=== PATIENT | male | born 1955 | race Caucasian/White ===

== ENCOUNTER → 2017-03-18 | Outpatient (CLI) | payer OTHER ==
--- NOTE | 2017-03-19 11:17 | ECHOF ---
Referral Reason:M70.1 MYAIGIA MEASUREMENTS -------- HEIGHT: 177.8 cm WEIGHT: 89.4 kg BP: 138/93 RVIDd: 2.8 cm (< 3.3) IVSd: 1.0 cm (0.6 - 1.1) LVIDd: 5.0 cm (3.9 - 5.3) LVPWd: 1.0 cm (0.6 - 1.1) IVSs: 1.5 cm LVIDs: 3.3 cm LVPWs: 1.2 cm LAESV Index (A-L): 16.45 ml/m Ao Diam: 3.6 cm (2.0 - 3.7) AV Cusp: 2.4 cm (1.5 - 2.6) LA Diam: 3.4 cm (2.7 - 3.8) MV EXCURSION: 15.271 mm (> 18.000) MV EF SLOPE: 59 mm/s (70 - 150) EPSS: 0.9 cm MV E Cesar: 0.62 m/s MV DecT: 282 ms MV A Cesar: 0.92 m/s MV E/A Ratio: 0.67 RAP: 5.00 mmHg RVSP: 10.41 mmHg FINDINGS -------- Sinus rhythm. This was a technically adequate study. The left ventricular size is normal. Left ventricular wall thickness is normal. Overall left vent ricular systolic function is normal with, an EF between 55 - 60 %. The right ventricle is normal in size and function. Normal LA size by volume 22+/-6 ml/m2. The right atrium is normal in size. Aortic valve is trileaflet and is mildly thickened. There is no evidence of aortic regurgitation. There is no evidence of aortic stenosis. The mitral valve leaflets are mildly thickened. There is trace to mild mitral regurgitation. Trace tricuspid regurgitation present. Right ventricular systolic pressure is normal at < 35 mmHg. There is no evidence of pulmonary hypertension. The pulmonic valve is normal. The aortic root size is normal. Normal inferior vena cava with normal inspiratory collapse consistent with estimated right atrial pre ssure of 5 mmHg. The pericardium is normal. There is no pericardial effusion. CONCLUSIONS -------- 1. Sinus rhythm. 2. This was a technically adequate study. 3. The left ventricular size is normal. 4. Left ventricular wall thickness is normal. 5. Overall left ventricular systolic function is normal with, an EF between 55 - 60 %. 6. Normal LA size by volume 22+/-6 ml/m2. 7. Aortic valve is trileaflet and is mildly thickened. 8. The mitral valve leaflets are mildly thickened. 9. There is trace to mild mitral regurgitation. 10. Trace tricuspid regurgitation present. 11. Right ventricular systolic pressure is normal at < 35 mmHg. 12. There is no evidence of pulmonary hypertension. 13. The aortic root size is normal. 14. There is no pericardial effusion. AGRICULTURAL SYSTEMS SPECIALIST: Autumn Larose RDCS
== END | disposition home or self-care (01) ==
LOC: RADECHMAIN 16:00
PROVIDERS: ATTEND Family Medicine
DX: I08.3 Combined rheumatic disorders of mitral, aortic and tricuspid valves (principal)
CPT/HCPCS: 93306

== ENCOUNTER → 2018-06-12 | Outpatient (CLI) | payer MEDICARE, OTHER ==
--- NOTE | 2018-06-12 10:20 | US ---
EXAMINATION TYPE: US carotid duplex BILAT DATE OF EXAM: 06/12/2018 COMPARISON: NONE CLINICAL HISTORY: I25.10 CORONARY ARTERY DISEASE,R09.89 CAROTID BRUIT. EXAM MEASUREMENTS: RIGHT: Peak Systolic Velocity (PSV) cm/sec ----- Right CCA: 105.6 ----- Right ICA: 93.0 ----- Right ECA: 125.8 ICA/CCA ratio: 0.9 RIGHT: End Diastole cm/sec ----- Right CCA: 37.4 ----- Right ICA: 41.2 ----- Right ECA: 29.8 LEFT: Peak Systolic Velocity (PSV) cm/sec ----- Left CCA: 131.9 ----- Left ICA: 100.5 ----- Left ECA: 143.2 ICA/CCA ratio: 0.8 LEFT: End Diastole cm/sec ----- Left CCA: 38.2 ----- Left ICA: 37.1 ----- Left ECA: 33.3 VERTEBRALS (direction of flow): Right Vertebral: Antegrade Left Vertebral: Antegrade Rhythm: IMPRESSION: Scattered plaque without evidence for hemodynamically significant stenosis. Criteria for Assigning % of Stenosis / Diameter reduction (Estimation based on the indirect measurements of the internal carotid artery velocities (ICA PSV). 1. Normal (no stenosis)=ICA PSV < 125 cm/s: ratio < 2.0: ICA EDV<40 cm/s. 2. Less than 50% stenosis=ICA PSV < 125 cm/s: ratio < 2.0: ICA EDV<40 cm/s. 3. 50 to 69% stenosis=ICA PSV of 125 to 230 cm/s: ration 2.0 ? 4.0: ICA EDV 40-100 cm/s. 4. Greater than 70% stenosis to near occlusion= ICA PSV > 230 cm/s: ratio > 4.0: ICA EDV > 100 cm/s. 5. Near occlusion= ICA PSV velocities may be low or undetectable: variable ratio and ICA EDV. 6. Total occlusion=unable to detect flow.
== END | disposition home or self-care (01) ==
LOC: RADUSWWP 09:38
PROVIDERS: ATTEND Family Medicine
DX: I65.23 Occlusion and stenosis of bilateral carotid arteries (principal); I25.10 Atherosclerotic heart disease of native coronary artery without angina pectoris
CPT/HCPCS: 93880

== ENCOUNTER 2018-12-22 18:08 | Inpatient (IN) | payer MEDICARE, OTHER ==
[2018-12-22] MEDS ORDERED: ASPIRIN 81 MG PO STA (18:49)
[2018-12-22] MEDS ORDERED: NITROGLYCERIN OINT 1 INCH/GM PACKET TOPICAL STA (18:49)
[2018-12-22] MEDS ORDERED: SODIUM CHLORIDE 0.9% 500 ML 500 ML IV STA (18:49)
[2018-12-22] MEDS ORDERED: ACETAMINOPHEN TAB 500 MG TAB PO STA (18:52)
--- NOTE | 2018-12-22 18:58 | ED ---
General Adult HPI - General Chief complaint: Chest Pain Stated complaint: chest pain Time Seen by Provider: 12/22/18 18:10 Source: patient, RN notes reviewed Mode of arrival: ambulatory Limitations: no limitations - History of Present Illness Initial comments: This is a 63-year-old male presents emergency Department complaining that since this morning said chest pain is gotten progressively worse. Patient states this afternoon it started radiating down his left arm and escalated to coming to the emergency department. Patient states the pain feels typical of the chest pain he had when he had a heart attack. Patient states he is also a diabetic. Patient states she's been fighting a sore throat for 3 days and he was recently put on Augmentin even though strep test was negative. Patient states today he felt warm he did have a temperature of 100.5. Patient denies any shortness of breath or any diaphoretic episodes. Patient denies any nausea vomiting diarrhea per patient denies any abdominal pain. Patient denies lightheadedness dizziness or near syncopal episode. Patient denies any swelling to the legs or tenderness of the calves. Patient states he has had a cough over the last day. - Related Data Home Medications Medication Instructions Recorded Confirmed Amoxic-Pot Clav 875-125Mg 1 tab PO BID 12/22/18 12/22/18 [Augmentin 875-125] Aspirin EC [Ecotrin Low Dose] 81 mg PO HS 12/22/18 12/22/18 Atorvastatin [Lipitor] 20 mg PO HS 12/22/18 12/22/18 Ibuprofen [Motrin Ib] 400 mg PO Q6H PRN 12/22/18 12/22/18 Insulin Glargine,Hum.rec.anlog 38 unit SQ HS 12/22/18 12/22/18 [Lantus Solostar] Insulin Glulisine [Apidra Solostar] See Protocol SQ AC-TID 12/22/18 12/22/18 Lisinopril [Prinivil] 10 mg PO HS 12/22/18 12/22/18 Allergies Allergy/AdvReac Type Severity Reaction Status Date / Time dulaglutide [From [facility]] AdvReac Abdominal Verified 12/22/18 18:53 Pain metformin AdvReac Diarrhea Verified 12/22/18 18:53 Review of Systems ROS Statement: Those systems with pertinent positive or pertinent negative responses have been documented in the HPI. ROS Other: All systems not noted in ROS Statement are negative. Past Medical History Past Medical History: Diabetes Mellitus, Myocardial Infarction ([place]) Additional Past Medical History / Comment(s): mi x2 History of Any Multi-Drug Resistant Organisms: None Reported Past Surgical History: Appendectomy, Heart Catheterization With Stent, Tonsillectomy Past Psychological History: No Psychological Hx Reported Smoking Status: Never smoker Past Alcohol Use History: None Reported Past Drug Use History: None Reported General Exam - General Exam Comments Initial Comments: GENERAL: Patient is well-developed and well-nourished. Patient is nontoxic and well- hydrated and is in mild distress. ENT: Neck is soft and supple. No significant lymphadenopathy is noted. Oropharynx is clear. Moist mucous membranes. Neck has full range of motion without eliciting any pain. EYES: The sclera were anicteric and conjunctiva were pink and moist. Extraocular movements were intact and pupils were equal round and reactive to light. Eyelids were unremarkable. PULMONARY: Unlabored respirations. Good breath sounds bilaterally. No audible rales rhonchi or wheezing was noted. CARDIOVASCULAR: There is a regular rate and rhythm without any murmurs gallops or rubs. ABDOMEN: Soft and nontender with normal bowel sounds. No palpable organomegaly was noted. There is no palpable pulsatile mass. SKIN: Skin is clear with no lesions or rashes and otherwise unremarkable. NEUROLOGIC: Patient is alert and oriented x3. Cranial nerves II through XII are grossly intact. Motor and sensory are also intact. Normal speech, volume and content. Symmetrical smile. MUSCULOSKELETAL: Normal extremities with adequate strength and full range of motion. No lower extremity swelling or edema. No calf tenderness. LYMPHATICS: No significant lymphadenopathy is noted PSYCHIATRIC: Normal psychiatric evaluation. Limitations: no limitations Course Vital Signs 12/22/18 18:14 Temperature 100.5 F H Pulse Rate 117 H Respiratory 18 Rate Blood Pressure 126/78 O2 Sat by Pulse 96 Oximetry Medical Decision Making - Medical Decision Making EKG shows sinus tachycardia at 107 bpm IN interval 172 QRS 96 QT interval 320 QTC is 427. Patient's EKG shows no ST segment elevation or depression or T wave abnormalities are noted. Chest x-ray shows an infiltrate in the left base and that correlates clinically with his chest exam. I started the patient on Rocephin and Zithromax. I brought the patient to the chest pain and we'll be repeating troponins and consult to cardiology but in the meantime I will continue treating the pneumonia. - Lab Data Result diagrams: 12/22/18 19:04 12/22/18 19:04 Lab Results 12/22/18 12/22/18 12/22/18 Range/Units 19:04 19:04 19:04 WBC 14.1 H (3.8-10.6) k/uL RBC 6.00 H (4.30-5.90) m/uL Hgb 17.3 (13.0-17.5) gm/dL Hct 50.2 (39.0-53.0) % MCV 83.7 (80.0-100.0) fL MCH 28.9 (25.0-35.0) pg MCHC 34.5 (31.0-37.0) g/dL RDW 13.5 (11.5-15.5) % Plt Count 233 (150-450) k/uL Neutrophils % 80 % Lymphocytes % 11 % Monocytes % 6 % Eosinophils % 2 % Basophils % 0 % Neutrophils # 11.2 H (1.3-7.7) k/uL Lymphocytes # 1.5 (1.0-4.8) k/uL Monocytes # 0.8 (0-1.0) k/uL Eosinophils # 0.3 (0-0.7) k/uL Basophils # 0.1 (0-0.2) k/uL PT 9.4 (9.0-12.0) sec INR 0.8 (<1.2) APTT 23.6 (22.0-30.0) sec Sodium 136 L (137-145) mmol/L Potassium 4.9 (3.5-5.1) mmol/L Chloride 100 (98-107) mmol/L Carbon Dioxide 25 (22-30) mmol/L Anion Gap 11 mmol/L BUN 20 (9-20) mg/dL Creatinine 0.82 (0.66-1.25) mg/dL Est GFR (CKD-EPI)AfAm >90 (>60 ml/min/1.73 sqM) Est GFR (CKD-EPI)NonAf >90 (>60 ml/min/1.73 sqM) Glucose 390 H (74-99) mg/dL Plasma Lactic Acid Aris (0.7-2.0) mmol/L Calcium 9.4 (8.4-10.2) mg/dL Magnesium 2.0 (1.6-2.3) mg/dL Total Bilirubin 0.8 (0.2-1.3) mg/dL AST 23 (17-59) U/L ALT 33 (21-72) U/L Alkaline Phosphatase 122 (38-126) U/L Troponin I (0.000-0.034) ng/mL Total Protein 7.3 (6.3-8.2) g/dL Albumin 4.3 (3.5-5.0) g/dL Amylase 73 (30-110) U/L Lipase 111 (23-300) U/L Heterophile Antibody (Negative) Group A Strep Rapid (Negative) 12/22/18 12/22/18 12/22/18 Range/Units 19:04 19:04 19:04 WBC (3.8-10.6) k/uL RBC (4.30-5.90) m/uL Hgb (13.0-17.5) gm/dL Hct (39.0-53.0) % MCV (80.0-100.0) fL MCH (25.0-35.0) pg MCHC (31.0-37.0) g/dL RDW (11.5-15.5) % Plt Count (150-450) k/uL Neutrophils % % Lymphocytes % % Monocytes % % Eosinophils % % Basophils % % Neutrophils # (1.3-7.7) k/uL Lymphocytes # (1.0-4.8) k/uL Monocytes # (0-1.0) k/uL Eosinophils # (0-0.7) k/uL Basophils # (0-0.2) k/uL PT (9.0-12.0) sec INR (<1.2) APTT (22.0-30.0) sec Sodium (137-145) mmol/L Potassium (3.5-5.1) mmol/L Chloride (98-107) mmol/L Carbon Dioxide (22-30) mmol/L Anion Gap mmol/L BUN (9-20) mg/dL Creatinine (0.66-1.25) mg/dL Est GFR (CKD-EPI)AfAm (>60 ml/min/1.73 sqM) Est GFR (CKD-EPI)NonAf (>60 ml/min/1.73 sqM) Glucose (74-99) mg/dL Plasma Lactic Acid Aris 1.2 (0.7-2.0) mmol/L Calcium (8.4-10.2) mg/dL Magnesium (1.6-2.3) mg/dL Total Bilirubin (0.2-1.3) mg/dL AST (17-59) U/L ALT (21-72) U/L Alkaline Phosphatase (38-126) U/L Troponin I <0.012 (0.000-0.034) ng/mL Total Protein (6.3-8.2) g/dL Albumin (3.5-5.0) g/dL Amylase (30-110) U/L Lipase (23-300) U/L Heterophile Antibody Negative (Negative) Group A Strep Rapid (Negative) 12/22/18 Range/Units 19:28 WBC (3.8-10.6) k/uL RBC (4.30-5.90) m/uL Hgb (13.0-17.5) gm/dL Hct (39.0-53.0) % MCV (80.0-100.0) fL MCH (25.0-35.0) pg MCHC (31.0-37.0) g/dL RDW (11.5-15.5) % Plt Count (150-450) k/uL Neutrophils % % Lymphocytes % % Monocytes % % Eosinophils % % Basophils % % Neutrophils # (1.3-7.7) k/uL Lymphocytes # (1.0-4.8) k/uL Monocytes # (0-1.0) k/uL Eosinophils # (0-0.7) k/uL Basophils # (0-0.2) k/uL PT (9.0-12.0) sec INR (<1.2) APTT (22.0-30.0) sec Sodium (137-145) mmol/L Potassium (3.5-5.1) mmol/L Chloride (98-107) mmol/L Carbon Dioxide (22-30) mmol/L Anion Gap mmol/L BUN (9-20) mg/dL Creatinine (0.66-1.25) mg/dL Est GFR (CKD-EPI)AfAm (>60 ml/min/1.73 sqM) Est GFR (CKD-EPI)NonAf (>60 ml/min/1.73 sqM) Glucose (74-99) mg/dL Plasma Lactic Acid Aris (0.7-2.0) mmol/L Calcium (8.4-10.2) mg/dL Magnesium (1.6-2.3) mg/dL Total Bilirubin (0.2-1.3) mg/dL AST (17-59) U/L ALT (21-72) U/L Alkaline Phosphatase (38-126) U/L Troponin I (0.000-0.034) ng/mL Total Protein (6.3-8.2) g/dL Albumin (3.5-5.0) g/dL Amylase (30-110) U/L Lipase (23-300) U/L Heterophile Antibody (Negative) Group A Strep Rapid Negative (Negative) Disposition Clinical Impression: Chest pain, Pneumonia Disposition: ADMITTED IP TO THIS HOSP Referrals: Luma Jimenez MD [Primary Care Provider] - 1-2 days Time of Disposition: 20:10
[2018-12-22 19:23] LABS: Basophils # (A) 0.1 k/uL (0-0.2); Basophils % (A) 0 %; Eosinophils # (A) 0.3 k/uL (0-0.7); Eosinophils % (A) 2 %; HCT 50.2 % (39.0-53.0); HGB 17.3 gm/dL (13.0-17.5); Lymphocytes # (A) 1.5 k/uL (1.0-4.8); Lymphocytes % (A) 11 %; MCH 28.9 pg (25.0-35.0); MCHC 34.5 g/dL (31.0-37.0); MCV 83.7 fL (80.0-100.0); Mean Platelet Volume 6.8; Monocytes # (A) 0.8 k/uL (0-1.0); Monocytes % (A) 6 %; Neutrophils # (A) 11.2 k/uL (1.3-7.7); Neutrophils % (A) 80 %; Platelet Count 233 k/uL (150-450); RDW 13.5 % (11.5-15.5); WBC 14.1 k/uL (3.8-10.6)
[2018-12-22 19:30] LABS: ALT 33 U/L (21-72); AST 23 U/L (17-59); African American GFR (CKD) >90 (>60 ml/min/1.73 sqM); Albumin 4.3 g/dL (3.5-5.0); Alkaline Phosphatase 122 U/L (38-126); Amylase 73 U/L (30-110); Anion Gap 11 mmol/L; Blood Urea Nitrogen 20 mg/dL (9-20); Calcium 9.4 mg/dL (8.4-10.2); Carbon Dioxide 25 mmol/L (22-30); Chloride 100 mmol/L (98-107); Glucose 390 mg/dL (74-99); Potassium 4.9 mmol/L (3.5-5.1); Sodium 136 mmol/L (137-145); Total Bilirubin 0.8 mg/dL (0.2-1.3); Total Protein 7.3 g/dL (6.3-8.2)
--- NOTE | 2018-12-22 19:40 | XR ---
EXAMINATION TYPE: XR chest 2V DATE OF EXAM: 12/22/2018 COMPARISON: 06/01/2013 HISTORY: Chest pain TECHNIQUE: Frontal and lateral views of the chest are obtained. FINDINGS: There is some linear density at the left lung base. Heart size is normal. There are no hil ar masses. There is no pleural effusion. IMPRESSION: Mild atelectasis at the left lung base is new compared to old exam. Normal heart.
[2018-12-22 19:42] LABS: INR 0.8 (<1.2); Partial Thromboplastin Time 23.6 sec (22.0-30.0); Prothrombin Time 9.4 sec (9.0-12.0)
[2018-12-22] MEDS ORDERED: cefTRIAXone IN SWFI 1,000 MG/10 ML SYRINGE IVP STA (20:09)
[2018-12-22] MEDS ORDERED: AZITHROMYCIN 500 MG in SODIUM CHLORIDE 0.9% 250 ML IVPB STA (20:09)
[2018-12-22] MEDS ORDERED: NITROGLYCERIN SL TABS 0.4 MG TAB SUBLINGUAL PRN (20:10)
[2018-12-22 21:13] LABS: Glucose,Whole Blood 266 mg/dL (75-99)
[2018-12-22] MEDS: INSULIN ASPART (NovoLOG) 100 UNIT/ML VIAL SQ SCH (21:26)
--- NOTE | 2018-12-22 23:07 | P.HPIM ---
History of Present Illness H&P Date: 12/22/18 Patient is a 58-year-old male with a PMH of coronary artery disease with history of [place] status post 2 stents, diabetes mellitus, and hypertension presented to the ED with complaints of chest discomfort. The patient reports that his chest pain started suddenly earlier today while he was at rest, epigastric, with radiation to the left arm. The patient states that the pain is similar to his prior MIs. The pain was initially at time of 10, and improved to 4 out of 10 at time of interview. He denied nausea, vomiting, diaphoresis, palpitations, or dizziness. Patient notes that over the past 3-4 days, he has had a sore throat, symptoms similar to his grandchildren a few days prior. He has been taking prescribed course of Augmentin. He endorsed some subjective chills earlier today. He denied recent travel or leg pain. The patient underwent an extensive evaluation in the emergency room with WBC count of 14.1, platelets 233, sodium 136, glucose 390, troponin less than 0.012, rapid strep test negative, heterophile antibody negative, and lactic acid 1.2. Upon presentation, the patient had a temperature of 100.5, and was tachycardic to 115 with BP 126/78 and saturating 96% on room air. The patient's chest x-ray revealed possible left lower lobe pneumonia versus atelectasis. EKG revealed sinus a cardiac 107 bpm with incomplete right bundle ranjit block and left axis deviation. The patient is being admitted to the medicine service for further management for chest pain and pneumonia. Review of Systems Pertinent positives and negatives as discussed in HPI, a complete review of systems was performed and all other systems are negative. Past Medical History Past Medical History: Diabetes Mellitus, Myocardial Infarction ([place]) Additional Past Medical History / Comment(s): mi x2 History of Any Multi-Drug Resistant Organisms: None Reported Past Surgical History: Appendectomy, Heart Catheterization With Stent, Tonsillectomy Past Psychological History: No Psychological Hx Reported Smoking Status: Never smoker Past Alcohol Use History: None Reported Past Drug Use History: None Reported Medications and Allergies Home Medications Medication Instructions Recorded Confirmed Type Amoxic-Pot Clav 875-125Mg 1 tab PO BID 12/22/18 12/22/18 History [Augmentin 875-125] Aspirin EC [Ecotrin Low Dose] 81 mg PO HS 12/22/18 12/22/18 History Atorvastatin [Lipitor] 20 mg PO HS 12/22/18 12/22/18 History Ibuprofen [Motrin Ib] 400 mg PO Q6H PRN 12/22/18 12/22/18 History Insulin Glargine,Hum.rec.anlog 38 unit SQ HS 12/22/18 12/22/18 History [Lantus Solostar] Insulin Glulisine [Apidra Solostar] See Protocol SQ AC-TID 12/22/18 12/22/18 History Lisinopril [Prinivil] 10 mg PO HS 12/22/18 12/22/18 History Allergies Allergy/AdvReac Type Severity Reaction Status Date / Time dulaglutide [From [facility]] AdvReac Abdominal Verified 12/22/18 18:53 Pain metformin AdvReac Diarrhea Verified 12/22/18 18:53 Physical Exam Vitals: Vital Signs Temp Pulse Resp BP Pulse Ox 12/22/18 20:00 104 H 9 L 132/92 92 L 12/22/18 19:30 136/87 90 L 12/22/18 19:00 109 H 16 133/84 92 L 12/22/18 18:14 100.5 F H 117 H 18 126/78 96 Intake and Output 12/22/18 12/22/18 12/22/18 06:59 14:59 22:59 Other: # Voids 1 Weight 93.894 kg General: non toxic, no distress, appears at stated age, overweight Derm: no unusual rashes/lesions no unusual ecchymoses, warm, dry Head: atraumatic, normocephalic, symmetric Eyes: EOMI, no lid lag, anicteric sclera, pupils equal round reactive to light ENT: Nose and ears atraumatic, no thrush, no pharyngeal erythema, no tonsillar exudates noted Neck: No thyromegaly, cervical lymphadenopathy noted, trachea midline, supple Mouth: no lip lesion, mucus membranes moist Cardiovascular: S1S2 reg, no murmur, positive posterior tibial pulse bilateral, no edema, capillary refill less than 2 seconds Lungs: CTA bilateral, no rhonchi, no rales , no accessory muscle use Abdominal: soft, nontender to palpation, no guarding, no appreciable organomegaly, normal bowel sounds Ext: no gross muscle atrophy, muscle strength 5 out of 5 in all 4 extremities grossly, no contractures, Neuro: CN II-XI grossly intact, light touch intact all 4 extremities, finger to nose within normal limits, Psych: Alert, oriented, appropriate affect Results CBC & Chem 7: 12/22/18 19:04 12/22/18 19:04 Labs: Abnormal Lab Results - Last 24 Hours (Table) 12/22/18 12/22/18 12/22/18 Range/Units 19:04 19:04 21:12 WBC 14.1 H (3.8-10.6) k/uL RBC 6.00 H (4.30-5.90) m/uL Neutrophils # 11.2 H (1.3-7.7) k/uL Sodium 136 L (137-145) mmol/L Glucose 390 H (74-99) mg/dL POC Glucose (mg/dL) 266 H (75-99) mg/dL Microbiology - Last 24 Hours (Table) 12/22/18 19:28 Group A Strep Throat Culture - Preliminary Throat Assessment and Plan Plan: Chest pain, r/o ACS -Cardiology consult -Cardiac monitoring -Trend troponin -Continue with aspirin -Nitro when necessary Sepsis secondary to community acquired pneumonia -Continue with azithromycin, ceftriaxone -Continue with IV fluids Diabetes mellitus with hyperglycemia -Blood glucose monitoring -Continue with Levemir 35 units daily at bedtime (Takes Lantus 38 U qhs at home) and Lispro insulin sliding scale Hypertension -Hold antihypertensives in setting of sepsis -Resume as warranted DVT prophylaxis -Heparin The patient is admitted with an anticipated greater than 2 midnight stay for evaluation of sepsis, chest pain. CODE STATUS:Full Code Discussed with: Patient Anticipated discharge date: 12/25/[address]: Home A total of 40 minutes was spent on the care of this complex patient more than 50% of the time was spent in counseling and care coordination.
[2018-12-23] MEDS ORDERED: NITROGLYCERIN OINT 1 INCH/GM PACKET TOPICAL SCH
[2018-12-23] MEDS ORDERED: HEPARIN SODIUM,PORCINE 5,000 UNIT/ML 1 ML VIAL SQ SCH
[2018-12-23 00:40] LABS: Glucose,Whole Blood 249 mg/dL (75-99)
[2018-12-23] MEDS: INSULIN DETEMIR (LEVEMIR) 100 UNIT/ML SYR SQ SCH ×2 (00:42→21:26)
[2018-12-23 06:38] LABS: HCT 44.3 % (39.0-53.0); HGB 15.3 gm/dL (13.0-17.5); MCH 28.8 pg (25.0-35.0); MCHC 34.4 g/dL (31.0-37.0); MCV 83.6 fL (80.0-100.0); Mean Platelet Volume 7.2; Platelet Count 218 k/uL (150-450); RBC 5.31 m/uL (4.30-5.90); RDW 15.4 % (11.5-15.5)
[2018-12-23 06:47] LABS: Glucose,Whole Blood 221 mg/dL (75-99)
[2018-12-23] MEDS: INSULIN ASPART (NovoLOG) 100 UNIT/ML VIAL SQ SCH ×7 (06:49→21:26)
[2018-12-23 06:59] LABS: Cholesterol 158 mg/dL (<200); HDL Cholesterol 34 mg/dL (40-60); LDL Cholesterol,Calculated 89 mg/dL (0-99); Triglycerides 175 mg/dL (<150)
--- NOTE | 2018-12-23 08:02 | P.CRDCN ---
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 Patient does not smoke. He presents to the hospital with symptoms of severe sore throat with associated fever and chills, productive cough. He states that this is been going on for the past 3 days, prior to that his grandchildren were both sick with upper respiratory infections. He presents to the hospital with symptoms of chest tightness and burning in his chest, which she states reminds him somewhat of what he had with his myocardial infarction at the time of his stent placements. Chest x-ray shows mild atelectasis at the left lung base as compared with prior exam. EKG shows a sinus tachycardia with an incomplete right bundle branch block pattern, nonspecific ST-T wave changes. Blood pressure on arrival here 126/78 with a heart rate of 118, 96% on room air, temperature at that time 100.5. Blood pressure this morning 120/70 with a heart rate of 103, temperature 98.7, 92% on room air. White blood cell count 14.1, hemoglobin 17.3, platelet count 233. Sodium 136, potassium 4.9, BUN 20, creatinine 0.8, glucose 390 on arrival. Troponins negative 3. Cholesterol 158, triglycerides 175, LDL 89, HDL 34. Rapid stress test was negative. Culture has also been sent which is yet pending. At the time of my examination this morning, he denies any chest discomfort, continues to complain of significant sore throat, has productive cough. Past Medical History Past Medical History: Diabetes Mellitus, Hypertension, Myocardial Infarction (DC) Additional Past Medical History / Comment(s): mi x2 Last Myocardial Infarction Date:: 2013 History of Any Multi-Drug Resistant Organisms: None Reported Past Surgical History: Appendectomy, Heart Catheterization With Stent, Tonsillectomy Date of Last Stent Placement:: N/A Past Psychological History: No Psychological Hx Reported Smoking Status: Never smoker Past Alcohol Use History: None Reported Past Drug Use History: None Reported - Past Family History Mother Family Medical History: Cancer Additional Family Medical History / Comment(s): Mother of cancer at 63 yea rs of age. Father Family Medical History: Diabetes Mellitus, Hypertension, Myocardial Infarction (DC) Additional Family Medical History / Comment(s): Father from [place] at 59 years of age. Medications and Allergies Home Medications Medication Instructions Recorded Confirmed Type Amoxic-Pot Clav 875-125Mg 1 tab PO BID 12/22/18 12/22/18 History [Augmentin 875-125] Aspirin EC [Ecotrin Low Dose] 81 mg PO HS 12/22/18 12/22/18 History Atorvastatin [Lipitor] 20 mg PO HS 12/22/18 12/22/18 History Ibuprofen [Motrin Ib] 400 mg PO Q6H PRN 12/22/18 12/22/18 History Insulin Glargine,Hum.rec.anlog 38 unit SQ HS 12/22/18 12/22/18 History [Lantus Solostar] Insulin Glulisine [Apidra Solostar] See Protocol SQ AC-TID 12/22/18 12/22/18 History Lisinopril [Prinivil] 10 mg PO HS 12/22/18 12/22/18 History Allergies Allergy/AdvReac Type Severity Reaction Status Date / Time dulaglutide [From [facility]] AdvReac Abdominal Verified 12/22/18 18:53 Pain metformin AdvReac Diarrhea Verified 12/22/18 18:53 Physical Exam Vitals: Vital Signs Temp Pulse Pulse Resp BP BP Pulse Ox 12/23/18 04:00 98.7 F 103 H 16 121/73 92 L 12/23/18 00:40 99.5 F 104 H 18 133/80 93 L 12/22/18 20:00 104 H 9 L 132/92 92 L 12/22/18 19:30 136/87 90 L 12/22/18 19:00 109 H 16 133/84 92 L 12/22/18 18:14 100.5 F H 117 H 18 126/78 96 Intake and Output 12/22/18 12/23/18 12/23/18 22:59 06:59 14:59 Other: Voiding Method Toilet # Voids 1 1 Weight 93.894 kg 93.8 kg PHYSICAL EXAMINATION: GENERAL: 63-year-old gentleman in no acute distress at the time of my examination HEENT: Head is atraumatic, normocephalic. Pupils equal, round. Sclera anicteric. Conjunctiva are clear. Mucous membranes of the mouth are moist. Neck is supple. There is no elevated jugular venous pressure. No carotid bruit is heard. HEART EXAMINATION: Heart S1, S2 normal. No murmur or gallop heard. CHEST EXAMINATION: On's reveal scattered rhonchi throughout ABDOMEN: Soft, nontender. Bowel sounds are heard. No organomegaly noted. EXTREMITIES: 2+ peripheral pulses with no evidence of peripheral edema and no calf tenderness noted. NEUROLOGIC patient is awake, alert and oriented 3 . . Results 12/23/18 06:09 12/22/18 19:04 Cardiac Enzymes 12/22/18 12/22/18 12/23/18 Range/Units 19:04 19:04 00:54 AST 23 (17-59) U/L Troponin I <0.012 <0.012 (0.000-0.034) ng/mL 12/23/18 Range/Units 06:09 AST (17-59) U/L Troponin I <0.012 (0.000-0.034) ng/mL Coagulation 12/22/18 Range/Units 19:04 PT 9.4 (9.0-12.0) sec APTT 23.6 (22.0-30.0) sec Lipids 12/23/18 Range/Units 06:09 Triglycerides 175 H (<150) mg/dL Cholesterol 158 (<200) mg/dL HDL Cholesterol 34 L (40-60) mg/dL CBC 12/22/18 12/23/18 Range/Units 19:04 06:09 WBC 14.1 H 11.0 H (3.8-10.6) k/uL RBC 6.00 H 5.31 (4.30-5.90) m/uL Hgb 17.3 15.3 (13.0-17.5) gm/dL Hct 50.2 44.3 (39.0-53.0) % Plt Count 233 218 (150-450) k/uL Comprehensive Metabolic Panel 12/22/18 Range/Units 19:04 Sodium 136 L (137-145) mmol/L Potassium 4.9 (3.5-5.1) mmol/L Chloride 100 (98-107) mmol/L Carbon Dioxide 25 (22-30) mmol/L BUN 20 (9-20) mg/dL Creatinine 0.82 (0.66-1.25) mg/dL Glucose 390 H (74-99) mg/dL Calcium 9.4 (8.4-10.2) mg/dL AST 23 (17-59) U/L ALT 33 (21-72) U/L Alkaline Phosphatase 122 (38-126) U/L Total Protein 7.3 (6.3-8.2) g/dL Albumin 4.3 (3.5-5.0) g/dL Current Medications Generic Name Dose Route Start Last Admin Trade Name Freq PRN Reason Stop Dose Admin Aspirin 325 mg 12/23/18 09:00 Aspirin PO DAILY [facility] Atorvastatin Calcium 20 mg 12/23/18 21:00 Lipitor PO HS [facility] Heparin Sodium (Porcine) 5,000 unit 12/23/18 00:00 12/23/18 00:42 Heparin SQ 5,000 unit Q8HR [facility] Administration Azithromycin 500 mg/ Sodium 250 mls @ 250 mls/hr 12/23/18 21:00 Chloride IVPB HS [facility] Ceftriaxone Sodium 1 gm/ 50 mls @ 100 mls/hr 12/23/18 21:00 Sodium Chloride IVPB HS [facility] Insulin Aspart 0 unit 12/22/18 21:16 12/23/18 06:49 Novolog SQ 3 unit ACHS [facility] Administration Protocol Insulin Aspart 0 unit 12/23/18 07:30 12/23/18 06:49 Novolog SQ Not Given AC-TID [facility] Protocol Insulin Detemir 35 unit 12/22/18 23:30 12/23/18 00:42 Levemir SQ 35 unit HS [facility] Administration Nitroglycerin 1 inch 12/23/18 00:00 12/23/18 00:42 Nitro-Bid Oint TOPICAL 1 inch Q6HR [facility] Administration Nitroglycerin 0.4 mg 12/22/18 20:10 Nitrostat SUBLINGUAL Q5M PRN Chest Pain Intake and Output 12/22/18 12/23/18 12/23/18 22:59 06:59 14:59 Other: Voiding Method Toilet # Voids 1 1 Weight 93.894 kg 93.8 kg 12/23/18 06:09 12/22/18 19:04 EKG Interpretations (text) EKG shows a sinus tachycardia with incomplete right bundle branch block pattern and nonspecific ST-T wave changes. Assessment and Plan Plan: Assessment and plan #1 symptoms of sore throat with associated productive cough, fever, elevated white blood cell count, initial strep test was negative, culture is pending. Patient has been initiated on antibiotic #2 chest pain, atypical features for acute coronary syndrome, troponins negative 3, EKG does not show any acute changes. Patient states he had a recent stress test one week ago at [facility], we will get a copy of that. #3 hypertension #4 diabetes #5 hyperlipidemia Plan We will obtain an echocardiogram with Doppler study. We will also request a copy of the recent stress test performed at [facility]. Decrease aspirin 81 mg daily, continue Lipitor, discontinue IV heparin, discontinue Nitropaste. Further recommendations to follow. DNP note has been reviewed, I agree with a documented findings and plan of care. Patient was seen and examined.
[2018-12-23] MEDS: ASPIRIN 81 MG PO SCH (08:09)
[2018-12-23] MEDS ORDERED: ASPIRIN 325 MG TAB PO SCH (09:00)
--- NOTE | 2018-12-23 11:01 | ECHOF ---
Referral Reason:chest pain MEASUREMENTS -------- HEIGHT: 182.9 cm WEIGHT: 93.4 kg BP: 121/73 RVIDd: 3.5 cm (< 3.3) IVSd: 1.1 cm (0.6 - 1.1) LVIDd: 4.0 cm (3.9 - 5.3) LVPWd: 1.2 cm (0.6 - 1.1) IVSs: 1.4 cm LVIDs: 2.9 cm LVPWs: 1.6 cm LA Diam: 3.7 cm (2.7 - 3.8) Ao Diam: 3.2 cm (2.0 - 3.7) AV Cusp: 1.7 cm (1.5 - 2.6) LA Diam: 3.6 cm (2.7 - 3.8) MV EXCURSION: 17.354 mm (> 18.000) MV EF SLOPE: 60 mm/s (70 - 150) EPSS: 0.6 cm MV E Cesar: 0.55 m/s MV DecT: 151 ms MV A Cesar: 0.70 m/s MV E/A Ratio: 0.79 RAP: 5.00 mmHg RVSP: 12.23 mmHg FINDINGS -------- Sinus rhythm. This was a technically adequate study. LV size, wall thickness and systolic function are normal, with an EF greater than 55%. The left olivia tricular size is normal. The right ventricle is normal in size. The left atrial size is normal. The right atrial size is normal. The aortic valve is trileaflet, and appears structurally normal. No aortic stenosis or regurgitation. Mild mitral regurgitation is present. Mild tricuspid regurgitation present. There is no evidence of pulmonary hypertension. The right v entricular systolic pressure, as measured by Doppler, is 12.23mmHg. There is no pulmonic regurgitation present. The aortic root size is normal. There is no pericardial effusion. CONCLUSIONS -------- 1. Sinus rhythm. 2. This was a technically adequate study. 3. LV size, wall thickness and systolic function are normal, with an EF greater than 55%. 4. The left ventricular size is normal. 5. The right ventricle is normal in size. 6. The left atrial size is normal. 7. The right atrial size is normal. 8. The aortic valve is trileaflet, and appears structurally normal. No aortic stenosis or regurgitati on. 9. Mild mitral regurgitation is present. 10. Mild tricuspid regurgitation present. 11. There is no evidence of pulmonary hypertension. 12. The right ventricular systolic pressure, as measured by Doppler, is 12.23mmHg. 13. There is no pulmonic regurgitation present. 14. The aortic root size is normal. 15. There is no pericardial effusion. [employer] OFFICER: Madhavi Reddy RDCS
--- NOTE | 2018-12-23 11:51 | P.PN ---
Subjective Progress Note Date: 12/23/18 Principal diagnosis: SOB Patient is feeling better today. Chest pain and shortness of breath are both better, still having cough and sweats. Objective - Vital Signs Vital signs: Vital Signs Temp 99.5 F 12/23/18 08:00 Pulse 104 H 12/23/18 08:00 Resp 20 12/23/18 08:00 BP 139/71 12/23/18 08:00 Pulse Ox 90 L 12/23/18 08:00 Intake & Output 12/22/18 12/23/18 12/23/18 18:59 06:59 18:59 Weight 93.894 kg 93.8 kg Other: Voiding Method Toilet # Voids 1 - Exam Constitutional: No acute distress, conversant, pleasant Eyes:Anicteric sclerae, moist conjunctiva, no lid-lag, PERRLA, ENMT: Oropharynx clear, no erythema, exudates Neck: Supple, FROM, no masses, or JVD, No carotid bruits, No thyromegaly Lungs: Clear to auscultation, Clear to percussion, Normal respiratory effort, no accessory muscle use Cardiovascular: Heart regular in rate and rhythm, No murmurs, gallops, or rubs, No peripheral edema Abdominal: Soft, Nontender, no guarding, rebound or rigidity, Normoactive bowel sounds, No hepatomegaly, No splenomegaly, No palpable mass Skin: Normal temperature, tone, texture, turgor, no induration, No subcutaneous nodules, No rash, lesions, No ulcers Extremities: No digital cyanosis, No clubbing, Pedal pulses intact and symm etrical, Radial pulses intact and symmetrical, No calf tenderness Psychiatric: Alert and oriented to person, place and time, appropriate affect, intact judgement Neuro: Muscles Strength 5/5 in all 4 extremities, Sensation to light touch grossly present throughout, Cranial nerves II-XII grossly intact, no focal sensory deficits - Labs CBC & Chem 7: 12/23/18 06:09 12/22/18 19:04 Labs: Abnormal Lab Results - Last 24 Hours (Table) 12/22/18 12/22/18 12/22/18 Range/Units 19:04 19:04 21:12 WBC 14.1 H (3.8-10.6) k/uL RBC 6.00 H (4.30-5.90) m/uL Neutrophils # 11.2 H (1.3-7.7) k/uL Sodium 136 L (137-145) mmol/L Glucose 390 H (74-99) mg/dL POC Glucose (mg/dL) 266 H (75-99) mg/dL Triglycerides (<150) mg/dL HDL Cholesterol (40-60) mg/dL 12/23/18 12/23/18 12/23/18 Range/Units 00:38 06:09 06:09 WBC 11.0 H (3.8-10.6) k/uL RBC (4.30-5.90) m/uL Neutrophils # (1.3-7.7) k/uL Sodium (137-145) mmol/L Glucose (74-99) mg/dL POC Glucose (mg/dL) 249 H (75-99) mg/dL Triglycerides 175 H (<150) mg/dL HDL Cholesterol 34 L (40-60) mg/dL 12/23/18 Range/Units 06:45 WBC (3.8-10.6) k/uL RBC (4.30-5.90) m/uL Neutrophils # (1.3-7.7) k/uL Sodium (137-145) mmol/L Glucose (74-99) mg/dL POC Glucose (mg/dL) 221 H (75-99) mg/dL Triglycerides (<150) mg/dL HDL Cholesterol (40-60) mg/dL Microbiology - Last 24 Hours (Table) 12/22/18 19:28 Group A Strep Throat Culture - Preliminary Throat Assessment and Plan Plan: Sepsis secondary to community acquired pneumonia -Continue with azithromycin, ceftriaxone -Continue with IV fluids Diabetes mellitus with hyperglycemia -Blood glucose monitoring -Continue with Levemir 35 units daily at bedtime (Takes Lantus 38 U qhs at home) and Lispro insulin sliding scale Hypertension -Hold antihypertensives in setting of sepsis -Resume as warranted DVT prophylaxis -Heparin CODE STATUS:Full Code Anticipated discharge date: 12/24/[address]: Home
[2018-12-23 12:04] LABS: Glucose,Whole Blood 231 mg/dL (75-99)
[2018-12-23 16:47] LABS: Glucose,Whole Blood 200 mg/dL (75-99)
[2018-12-23 17:54] LABS: Hemoglobin A1C 11.1 % (4.0-6.0)
[2018-12-23 20:43] LABS: Glucose,Whole Blood 228 mg/dL (75-99)
[2018-12-23] MEDS ORDERED: ATORVASTATIN 20 MG TAB PO SCH (21:00)
[2018-12-23] MEDS ORDERED: AZITHROMYCIN 500 MG in SODIUM CHLORIDE 0.9% 250 ML IVPB SCH (21:00)
[2018-12-24 06:19] LABS: Glucose,Whole Blood 180 mg/dL (75-99)
[2018-12-24] MEDS: INSULIN ASPART (NovoLOG) 100 UNIT/ML VIAL SQ SCH ×7 (06:40→21:40)
[2018-12-24] MEDS: ASPIRIN 81 MG PO SCH (09:10)
--- NOTE | 2018-12-24 09:33 | P.PN ---
Subjective Progress Note Date: 12/24/18 Principal diagnosis: SOB Doing well and feeling better. Still with low grade temps last night. No cp or sob. Objective - Vital Signs Vital signs: Vital Signs Temp 98.4 F 12/24/18 08:00 Pulse 83 12/24/18 04:00 Resp 16 12/24/18 08:00 BP 121/76 12/24/18 08:00 Pulse Ox 95 12/24/18 08:00 Intake & Output 12/23/18 12/24/18 12/24/18 18:59 06:59 18:59 Intake Total 720 Balance 720 Weight 92.5 kg Intake: Oral 720 Other: Voiding Method Toilet # Voids 2 1 - Exam Constitutional: No acute distress, conversant, pleasant Eyes:Anicteric sclerae, moist conjunctiva, no lid-lag, PERRLA, ENMT: Oropharynx clear, no erythema, exudates Neck: Supple, FROM, no masses, or JVD, No carotid bruits, No thyromegaly Lungs: Clear to auscultation, Clear to percussion, Normal respiratory effort, no accessory muscle use Cardiovascular: Heart regular in rate and rhythm, No murmurs, gallops, or rubs, No peripheral edema Abdominal: Soft, Nontender, no guarding, rebound or rigidity, Normoactive bowel sounds, No hepatomegaly, No splenomegaly, No palpable mass Skin: Normal temperature, tone, texture, turgor, no induration, No subcutaneous nodules, No rash, lesions, No ulcers Extremities: No digital cyanosis, No clubbing, Pedal pulses intact and symmetrical, Radial pulses intact and symmetrical, No calf tenderness Psychiatric: Alert and oriented to person, place and time, appropriate affect, intact judgement Neuro: Muscles Strength 5/5 in all 4 extremities, Sensation to light touch grossly present throughout, Cranial nerves II-XII grossly intact, no focal sensory deficits - Labs CBC & Chem 7: 12/23/18 06:09 12/22/18 19:04 Labs: Abnormal Lab Results - Last 24 Hours (Table) 12/23/18 12/23/18 12/23/18 Range/Units 06:09 11:59 16:45 POC Glucose (mg/dL) 231 H 200 H (75-99) mg/dL Hemoglobin A1c 11.1 H (4.0-6.0) % 12/23/18 12/24/18 Range/Units 20:42 06:18 POC Glucose (mg/dL) 228 H 180 H (75-99) mg/dL Hemoglobin A1c (4.0-6.0) % Microbiology - Last 24 Hours (Table) 12/22/18 19:28 Group A Strep Throat Culture - Final Throat 12/22/18 19:04 Blood Culture - Preliminary Blood No Growth after 24 hours Assessment and Plan Plan: Sepsis secondary to community acquired pneumonia -Continue with azithromycin, ceftriaxone -Continue with IV fluids Diabetes mellitus with hyperglycemia -Still hyperglycemic persistently -Increase levemir to 40 units daily at bedtime (Takes Lantus 38 U qhs at home) and Lispro insulin sliding scale Hypertension -Hold antihypertensives in setting of sepsis -Resume as warranted DVT prophylaxis Ambulatory, low risk CODE STATUS:Full Code Anticipated discharge date: 12/25/[address]: Home
--- NOTE | 2018-12-24 10:24 | PN ---
PROGRESS NOTE Mr. Yang is a 63-year-old male with known history of coronary artery disease who presented with symptoms of progressive dyspnea and cough, had fever and productive sputum. He is doing well this morning, feeling better. His breathing is better. He is denying any symptoms of chest pain. He denies any dizziness or palpitation. He denies any nausea. He has underwent an echocardiogram that revealed a preserved left ventricular size and systolic function with no significant valvular disease. He continues to be on aspirin once a day, Lipitor 20 mg daily. PHYSICAL EXAMINATION: Blood pressure 120/70 with the heart rate in the 80s. LUNGS: Clear. HEART: Regular rate and rhythm. S1, S2. No S3. No rub. ABDOMEN: Soft, nontender. EXTREMITIES: No edema. LAB DATA: Lab data revealed troponin less than 0.012, LDL of 89. IMPRESSION: 1. History of coronary artery disease, status post percutaneous revascularization. 2. Symptoms of tracheobronchitis, improving. 3. History of hyperlipidemia. 4. Hypertension. RECOMMENDATION: From the cardiac standpoint, I will resume his dose of lisinopril. We will continue on the statin. 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 From the cardiac standpoint, no further cardiac workup will be needed at this point. We will see him on as-needed basis. Please feel free to call us for any question. MMODL / IJN: [id number] /
[2018-12-24 12:14] LABS: Glucose,Whole Blood 213 mg/dL (75-99)
[2018-12-24] MEDS: LISINOPRIL 10 MG TAB PO SCH (12:33)
[2018-12-24 13:51] VITALS: BMI 29.2
[2018-12-24 17:12] LABS: Glucose,Whole Blood 188 mg/dL (75-99)
[2018-12-24] MEDS ORDERED: INSULIN DETEMIR (LEVEMIR) 100 UNIT/ML SYR SQ SCH (21:00)
[2018-12-24] MEDS ORDERED: AZITHROMYCIN 500 MG TAB PO SCH (21:00)
[2018-12-24] MEDS ORDERED: ATORVASTATIN 40 MG TAB PO SCH (21:00)
[2018-12-24 21:34] LABS: Glucose,Whole Blood 261 mg/dL (75-99)
[2018-12-25 06:28] LABS: Glucose,Whole Blood 178 mg/dL (75-99)
[2018-12-25] MEDS: INSULIN ASPART (NovoLOG) 100 UNIT/ML VIAL SQ SCH ×3 (06:57→12:20)
[2018-12-25] MEDS: ASPIRIN 81 MG PO SCH (08:45)
[2018-12-25] MEDS: LISINOPRIL 10 MG TAB PO SCH (08:45)
[2018-12-25 08:46] VITALS: RESP 16; TEMP 98.4
[2018-12-25 12:12] LABS: Glucose,Whole Blood 200 mg/dL (75-99)
[2018-12-25 12:24] VITALS: BP 125/76; PULSE 92
--- NOTE | 2018-12-25 13:40 | P.DS ---
Providers Date of admission: 12/22/18 20:10 Expected date of discharge: 12/25/18 Attending physician: Beltran Calhoun MD Consults: 12/22/18 20:10 Consult Physician Urgent Consulting Provider: [facility] Consult Reason/Comments: chest pain Do you want consulting provider notified?: Yes Primary care physician: Luma Jimenez MD Hospital Course: 58-year-old male with a PMH of coronary artery disease with history of MA status post 2 stents, diabetes mellitus, and hypertension presented to the ED with complaints of chest discomfort which started suddenly while he was at rest, pain was epigastric, with radiation to the left arm. The patient states that the pain is similar to his prior MIs. He denied nausea, vomiting, diaphoresis, palpitations, or dizziness. Over the past 3-4 days, he has had a sore throat, symptoms similar to his grandchildren a few days prior. He has been taking prescribed course of Augmentin for presumed bronchitis. Also had some associated chills. He denied recent travel or leg pain. In the emergency room workup revealed WBC count of 14.1, platelets 233, sodium 136, glucose 390, troponin less than 0.012, rapid strep test negative, heterophile antibody negative, and lactic acid 1.2. Upon presentation, the patient had a temperature of 100.5, and was tachycardic to 115 with BP 126/78 and saturating 96% on room air. The patient's chest x-ray revealed possible left lower lobe pneumonia versus atelectasis. EKG revealed sinus a cardiac 107 bpm with incomplete right bundle ranjit block and left axis deviation. The patient is being admitted to the medicine service for further management for chest pain and pneumonia. Patient was admitted to the hospital for presumed community-acquired pneumonia. He was started on ceftriaxone and azithromycin. He had occasional fevers on and off initially throughout the admission but that subsided later. He responded well to treatment. His leukocytosis improved and blood cultures remained negative until the time of discharge. Regarding the chest pain was evaluated by cardiology who agreed that his pain is most likely pleuritic secondary to coughing from pneumonia. He had an echocardiogram which came back okay with no wall motion abnormalities. EF was good. Currently is feeling well, he'll go home in stable condition. Time for discharge 35 minutes. Plan - Discharge Summary Discharge Rx Participant: No New Discharge Prescriptions: New Azithromycin [Zithromax] 500 mg PO HS 3 Days #3 tab Cefdinir [Omnicef] 300 mg PO Q12HR 5 Days #10 capsule Azithromycin [Zithromax] 500 mg PO DAILY 5 Days #5 tab Continue Lisinopril [Prinivil] 10 mg PO HS Insulin Glulisine [Apidra Solostar] See Protocol SQ AC-TID Insulin Glargine,Hum.rec.anlog [Lantus Solostar] 38 unit SQ HS Atorvastatin [Lipitor] 20 mg PO HS Aspirin EC [Ecotrin Low Dose] 81 mg PO HS Ibuprofen [Motrin Ib] 400 mg PO Q6H PRN PRN Reason: Pain Discontinued Amoxic-Pot Clav 875-125Mg [Augmentin 875-125] 1 tab PO BID Discharge Medication List Aspirin EC [Ecotrin Low Dose] 81 mg PO HS 12/22/18 [History] Atorvastatin [Lipitor] 20 mg PO HS 12/22/18 [History] Ibuprofen [Motrin Ib] 400 mg PO Q6H PRN 12/22/18 [History] Insulin Glargine,Hum.rec.anlog [Lantus Solostar] 38 unit SQ HS 12/22/18 [History] Insulin Glulisine [Apidra Solostar] See Protocol SQ AC-TID 12/22/18 [History] Lisinopril [Prinivil] 10 mg PO HS 12/22/18 [History] Azithromycin [Zithromax] 500 mg PO DAILY 5 Days #5 tab 12/25/18 [Rx] Azithromycin [Zithromax] 500 mg PO HS 3 Days #3 tab 12/25/18 [Rx] Cefdinir [Omnicef] 300 mg PO Q12HR 5 Days #10 capsule 12/25/18 [Rx] Follow up Appointment(s)/Referral(s): Cardiology, [Other] - 1 Week (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
--- NOTE | 2018-12-29 00:26 | CDI ---
Documentation Clarification Form Date: 12/29/18 From: Heber Herman Phone: call [phone] Admit Date: 12/22/2018 8:10:00 PM Patient Name: Benjamin Yang Visit Number: [id number] Discharge Date: 12/25/2018 1:27:00 PM ATTENTION: The Clinical Documentation Specialists (CDI) and [facility] Coding Staff appreciate your assistance in clarifying documentation. Please respond to the clarification below the line at the bottom and electronically sign. The CDI & [facility] Coding staff will review the response and follow-up if needed. Please note: Queries are made part of the Legal Health Record. If you have any questions, please contact the author of this message via ITS. Dr. Joaquina Boyd, The patient presented with the chest pain and pneumonia. History/Risk Factors: chest pain, pneumonia Clinical Indicators: WBC : 14.1 Lactic acid: 1.2 Blood cultures: not obtained Vitals signs on admission: pulse 96 pulse rate 117H Other Clinical Indicators: Treatment: Antibiotics, IV fluids. Antibiotics: Azithromycin, Ceftriaxone. IV Bolus: yes -Patient admitted with chest pain and pneumonia, in H&P and progress notes 12/23, 12/24 mentioned Sepsis secondary to pneumonia but in discharge summary documented as Pneumonia alone. In your professional opinion, please clarify the sepsis diagnosis presence, Sepsis ruled out Sepsis Other, please specify Unable to determine Sepsis was present on admission, resolved with treatment MTDD
== END 2018-12-25 13:27 | disposition home or self-care (01) | DRG 871 ==
LOC: EC 18:08 → 3SCARD 20:10
PROVIDERS: ADMIT Family Medicine; ATTEND Family Medicine
DX: A41.9 Sepsis, unspecified organism (principal); J18.9 Pneumonia, unspecified organism; J40 Bronchitis, not specified as acute or chronic; E11.65 Type 2 diabetes mellitus with hyperglycemia; E78.5 Hyperlipidemia, unspecified; I25.10 Atherosclerotic heart disease of native coronary artery without angina pectoris; I45.10 Unspecified right bundle-branch block; I10 Essential (primary) hypertension; I25.2 Old myocardial infarction; Z95.5 Presence of coronary angioplasty implant and graft; Z79.4 Long term (current) use of insulin; Z79.899 Other long term (current) drug therapy; Z83.3 Family history of diabetes mellitus; Z82.49 Family history of ischemic heart disease and other diseases of the circulatory system; Z80.9 Family history of malignant neoplasm, unspecified; Z88.8 Allergy status to other drugs, medicaments and biological substances; Z90.49 Acquired absence of other specified parts of digestive tract; Z90.89 Acquired absence of other organs
CPT/HCPCS: 36415; 71046; 80053; 80061; 82150; 83036; 83605; 83690; 83735; 84484; 85025; 85027; 85610; 85730; 86308; 87040; 87081; 87430; 93005; 93306; 96361; 96365; 96375; 99285

== ENCOUNTER 2019-10-07 17:35 | Observation (INO) | payer MEDICARE ==
[2019-10-07] MEDS ORDERED: SODIUM CHLORIDE 0.9% 1,000 ML IV STA (17:48)
[2019-10-07 18:00] LABS: Basophils # (A) 0.1 k/uL (0-0.2); Basophils % (A) 1 %; Eosinophils # (A) 0.3 k/uL (0-0.7); Eosinophils % (A) 4 %; HCT 45.3 % (39.0-53.0); HGB 15.8 gm/dL (13.0-17.5); Lymphocytes # (A) 2.3 k/uL (1.0-4.8); Lymphocytes % (A) 30 %; MCH 29.6 pg (25.0-35.0); MCHC 34.9 g/dL (31.0-37.0); MCV 84.7 fL (80.0-100.0); Mean Platelet Volume 7.7; Monocytes # (A) 0.4 k/uL (0-1.0); Monocytes % (A) 5 %; Neutrophils # (A) 4.5 k/uL (1.3-7.7); Neutrophils % (A) 57 %; Platelet Count 258 k/uL (150-450); RBC 5.34 m/uL (4.30-5.90); RDW 13.4 % (11.5-15.5); WBC 7.8 k/uL (3.8-10.6)
[2019-10-07 18:01] LABS: Glucose,Whole Blood 590 mg/dL (75-99)
[2019-10-07 18:10] LABS: ALT 43 U/L (4-49); AST 33 U/L (17-59); African American GFR (CKD) >90 (>60 ml/min/1.73 sqM); Alkaline Phosphatase 180 U/L (38-126); Anion Gap 12 mmol/L; Blood Urea Nitrogen 30 mg/dL (9-20); Calcium 9.1 mg/dL (8.4-10.2); Carbon Dioxide 20 mmol/L (22-30); Chloride 99 mmol/L (98-107); Non-African American GFR(CKD) >90 (>60 ml/min/1.73 sqM); Potassium 4.7 mmol/L (3.5-5.1); Sodium 131 mmol/L (137-145); Total Bilirubin 0.5 mg/dL (0.2-1.3); Total Protein 6.6 g/dL (6.3-8.2)
[2019-10-07 18:19] LABS: Glucose 580 mg/dL (74-99)
--- NOTE | 2019-10-07 18:35 | ED ---
General Adult HPI - General Source: patient, EMS Mode of arrival: EMS Limitations: no limitations <Luma Tony - Last Filed: 10/09/19 02:00> <Adina Duncan - Last Filed: 10/11/19 15:29> - General Chief complaint: Nausea/Vomiting/Diarrhea Stated complaint: High Blood Sugar Time Seen by Provider: 10/07/19 17:40 - History of Present Illness Initial comments: Patient is a 64-year-old male presenting to the emergency Department with complaints of elevated sugar levels as well as weakness for the past week. Patient states he stopped taking his metformin 2 weeks ago because his blood sugars were too low. Patient states over the past week he has become more and more weak, he feels like he has been losing weight as well. Patient stated today he was so weak that he did fall down. He denies hitting his head. He denies a chest pain, shortness of breath. He denies any nausea, vomiting. He denies any other pains. Glucose was checked in the EMS prior to arrival and was almost 600. Patient did receive half liter bolus and the EMS. There are no further complaints at this time. (Luma Tony) - Related Data Home Medications Medication Instructions Recorded Confirmed Insulin Glargine,Hum.rec.anlog 38 unit SQ HS 12/22/18 10/07/19 [Lantus Solostar] Allergies Allergy/AdvReac Type Severity Reaction Status Date / Time dulaglutide [From Trulicity] AdvReac Abdominal Verified 10/07/19 21:55 Pain metformin AdvReac Diarrhea Verified 10/07/19 21:55 Review of Systems ROS Other: All systems not noted in ROS Statement are negative. <Luma Tony - Last Filed: 10/09/19 02:00> ROS Other: All systems not noted in ROS Statement are negative. <Adina Duncan - Last Filed: 10/11/19 15:29> ROS Statement: Those systems with pertinent positive or pertinent negative responses have been documented in the HPI. Past Medical History Past Medical History: Diabetes Mellitus, Hypertension, Myocardial Infarction ([place]) Additional Past Medical History / Comment(s): mi x2 Last Myocardial Infarction Date:: 2013 History of Any Multi-Drug Resistant Organisms: None Reported Past Surgical History: Appendectomy, Heart Catheterization With Stent, Tonsillectomy Date of Last Stent Placement:: N/A Past Psychological History: No Psychological Hx Reported Smoking Status: Never smoker Past Alcohol Use History: None Reported Past Drug Use History: None Reported - Past Family History Mother Family Medical History: Cancer Additional Family Medical History / Comment(s): Mother of cancer at 63 years of age. Father Family Medical History: Diabetes Mellitus, Hypertension, Myocardial Infarction ([place]) Additional Family Medical History / Comment(s): Father from [place] at 59 years of age. <Luma Tony - Last Filed: 10/09/19 02:00> General Exam Limitations: no limitations <Luma Tony - Last Filed: 10/09/19 02:00> - General Exam Comments Initial Comments: GENERAL: Patient appears fatigued, and in no acute distress. HEAD: Atraumatic, normocephalic. EYES: Pupils equal round and reactive to light, extraocular movements intact, sclera anicteric, conjunctiva are normal. ENT: TMs normal, nares patent, oropharynx clear without exudates. Dry mucous membra albert. NECK: Normal range of motion, supple without lymphadenopathy or JVD. LUNGS: Breath sounds clear to auscultation bilaterally and equal. No wheezes rales or rhonchi. HEART: Regular rate and rhythm without murmurs, rubs or gallops. ABDOMEN: Soft, nontender, normoactive bowel sounds. No guarding, no rebound. No masses appreciated. : Deferred EXTREMITIES: Normal range of motion, no pitting or edema. No clubbing or cyanosis. NEUROLOGICAL: Cranial nerves II through XII grossly intact. Normal speech PSYCH: Normal mood, normal affect. SKIN: Warm, Dry, normal turgor, no rashes or lesions noted. (Luma Tony) Course Vital Signs 10/07/19 10/07/19 10/07/19 17:38 20:08 22:01 Temperature 99.4 F 97.4 F L Pulse Rate 102 H 92 83 Respiratory 16 18 16 Rate Blood Pressure 149/97 132/90 126/81 O2 Sat by Pulse 93 L 95 94 L Oximetry EKG Findings - EKG Comments: EKG Findings:: Sinus tach, incomplete RBBB, similar to previous EKG on 12/22/2018. Ventricular rate 103, MO interval 196, QT 354, QTC 463. <Luma Tony - Last Filed: 10/09/19 02:00> Medical Decision Making - Lab Data Result diagrams: 10/07/19 17:47 10/08/19 06:28 <Luma Tony - Last Filed: 10/09/19 02:00> - Lab Data Result diagrams: 10/07/19 17:47 10/08/19 06:28 <Adina Duncan - Last Filed: 10/11/19 15:29> - Medical Decision Making Patient is a 4-year-old male history diabetes, presenting with elevated glucose, weakness, and weight loss x 1 week. Denies nausea or vomiting. Lab work shows no leukocytosis. Carbon dioxide is 20, sodium 131, potassium 4.7, glucose is 580. Lactic acid is normal. Troponin is normal. Acetone is positive. Patient received a total of a liter and half of fluids. Patient will be admitted for acute hyperglycemia, nausea. Patient is in agreement with this plan of care. Patient accepted by Dr. Saini. Case discussed with Dr. Duncan. ( Luma Tony) I was available for consultation in the emergency department. The history and physical exam were done by the midlevel provider. I was consulted for this patients care. I reviewed the case with the midlevel provider and based on their presentation of the patient, I agree with the assessment, medical decision making and plan of care as documented. Chart was dictated using [employer] dictation software. Attempts were made to correct any dictation errors however some typographical errors may persist. Patient was seen during a national state of emergency due to the Covid-19 pandemic. (Adina Duncan) - Lab Data Lab Results 10/07/19 10/07/19 10/07/19 Range/Units 17:47 17:47 17:47 WBC 7.8 (3.8-10.6) k/uL RBC 5.34 (4.30-5.90) m/uL Hgb 15.8 (13.0-17.5) gm/dL Hct 45.3 (39.0-53.0) % MCV 84.7 (80.0-100.0) fL MCH 29.6 (25.0-35.0) pg MCHC 34.9 (31.0-37.0) g/dL RDW 13.4 (11.5-15.5) % Plt Count 258 (150-450) k/uL Neutrophils % 57 % Lymphocytes % 30 % Monocytes % 5 % Eosinophils % 4 % Basophils % 1 % Neutrophils # 4.5 (1.3-7.7) k/uL Lymphocytes # 2.3 (1.0-4.8) k/uL Monocytes # 0.4 (0-1.0) k/uL Eosinophils # 0.3 (0-0.7) k/uL Basophils # 0.1 (0-0.2) k/uL Sodium 131 L (137-145) mmol/L Potassium 4.7 (3.5-5.1) mmol/L Chloride 99 (98-107) mmol/L Carbon Dioxide 20 L (22-30) mmol/L Anion Gap 12 mmol/L BUN 30 H (9-20) mg/dL Creatinine 0.81 (0.66-1.25) mg/dL Est GFR (CKD-EPI)AfAm >90 (>60 ml/min/1.73 sqM) Est GFR (CKD-EPI)NonAf >90 (>60 ml/min/1.73 sqM) Glucose 580 H* (74-99) mg/dL POC Glucose (mg/dL) (75-99) mg/dL POC Glu Aquatics Coordinator ID Estimated Ave Glu mg/dL Hemoglobin A1c (4.0-6.0) % Plasma Lactic Acid Aris 1.0 (0.7-2.0) mmol/L Calcium 9.1 (8.4-10.2) mg/dL Total Bilirubin 0.5 (0.2-1.3) mg/dL AST 33 (17-59) U/L ALT 43 (4-49) U/L Alkaline Phosphatase 180 H (38-126) U/L Troponin I (0.000-0.034) ng/mL Total Protein 6.6 (6.3-8.2) g/dL Albumin 4.0 (3.5-5.0) g/dL Urine Color Urine Appearance (Clear) Urine pH (5.0-8.0) Ur Specific [place] (1.001-1.035) Urine Protein (Negative) Urine Glucose (UA) (Negative) Urine Ketones (Negative) Urine Blood (Negative) Urine Nitrite (Negative) Urine Bilirubin (Negative) Urine Urobilinogen (<2.0) mg/dL Ur Leukocyte Esterase (Negative) Acetone, Qual Positive (Negative) Coronavirus (PCR) (Not Detected) 10/07/19 10/07/19 10/07/19 Range/Units 17:47 17:47 17:50 WBC (3.8-10.6) k/uL RBC (4.30-5.90) m/uL Hgb (13.0-17.5) gm/dL Hct (39.0-53.0) % MCV (80.0-100.0) fL MCH (25.0-35.0) pg MCHC (31.0-37.0) g/dL RDW (11.5-15.5) % Plt Count (150-450) k/uL Neutrophils % % Lymphocytes % % Monocytes % % Eosinophils % % Basophils % % Neutrophils # (1.3-7.7) k/uL Lymphocytes # (1.0-4.8) k/uL Monocytes # (0-1.0) k/uL Eosinophils # (0-0.7) k/uL Basophils # (0-0.2) k/uL Sodium (137-145) mmol/L Potassium (3.5-5.1) mmol/L Chloride (98-107) mmol/L Carbon Dioxide (22-30) mmol/L Anion Gap mmol/L BUN (9-20) mg/dL Creatinine (0.66-1.25) mg/dL Est GFR (CKD-EPI)AfAm (>60 ml/min/1.73 sqM) Est GFR (CKD-EPI)NonAf (>60 ml/min/1.73 sqM) Glucose (74-99) mg/dL POC Glucose (mg/dL) 590 H (75-99) mg/dL POC Glu Aquatics Coordinator ID Nathalie Ofe Estimated Ave Glu mg/dL 407 Hemoglobin A1c 15.8 H (4.0-6.0) % Plasma Lactic Acid Aris (0.7-2.0) mmol/L Calcium (8.4-10.2) mg/dL Total Bilirubin (0.2-1.3) mg/dL AST (17-59) U/L ALT (4-49) U/L Alkaline Phosphatase (38-126) U/L Troponin I <0.012 (0.000-0.034) ng/mL Total Protein (6.3-8.2) g/dL Albumin (3.5-5.0) g/dL Urine Color Urine Appearance (Clear) Urine pH (5.0-8.0) Ur Specific [place] (1.001-1.035) Urine Protein (Negative) Urine Glucose (UA) (Negative) Urine Ketones (Negative) Urine Blood (Negative) Urine Nitrite (Negative) Urine Bilirubin (Negative) Urine Urobilinogen (<2.0) mg/dL Ur Leukocyte Esterase (Negative) Acetone, Qual (Negative) Coronavirus (PCR) (Not Detected) 10/07/19 10/07/19 10/07/19 Range/Units 19:17 20:00 20:05 WBC (3.8-10.6) k/uL RBC (4.30-5.90) m/uL Hgb (13.0-17.5) gm/dL Hct (39.0-53.0) % MCV (80.0-100.0) fL MCH (25.0-35.0) pg MCHC (31.0-37.0) g/dL RDW (11.5-15.5) % Plt Count (150-450) k/uL Neutrophils % % Lymphocytes % % Monocytes % % Eosinophils % % Basophils % % Neutrophils # (1.3-7.7) k/uL Lymphocytes # (1.0-4.8) k/uL Monocytes # (0-1.0) k/uL Eosinophils # (0-0.7) k/uL Basophils # (0-0.2) k/uL Sodium (137-145) mmol/L Potassium (3.5-5.1) mmol/L Chloride (98-107) mmol/L Carbon Dioxide (22-30) mmol/L Anion Gap mmol/L BUN (9-20) mg/dL Creatinine (0.66-1.25) mg/dL Est GFR (CKD-EPI)AfAm (>60 ml/min/1.73 sqM) Est GFR (CKD-EPI)NonAf (>60 ml/min/1.73 sqM) Glucose (74-99) mg/dL POC Glucose (mg/dL) 379 H (75-99) mg/dL POC Glu Aquatics Coordinator ID Dima Mitchell Estimated Ave Glu mg/dL Hemoglobin A1c (4.0-6.0) % Plasma Lactic Acid Aris (0.7-2.0) mmol/L Calcium (8.4-10.2) mg/dL Total Bilirubin (0.2-1.3) mg/dL AST (17-59) U/L ALT (4-49) U/L Alkaline Phosphatase (38-126) U/L Troponin I (0.000-0.034) ng/mL Total Protein (6.3-8.2) g/dL Albumin (3.5-5.0) g/dL Urine Color Colorless Urine Appearance Clear (Clear) Urine pH 5.0 (5.0-8.0) Ur Specific [place] 1.032 (1.001-1.035) Urine Protein Trace H (Negative) Urine Glucose (UA) 4+ H (Negative) Urine Ketones 2+ H (Negative) Urine Blood Negative (Negative) Urine Nitrite Negative (Negative) Urine Bilirubin Negative (Negative) Urine Urobilinogen <2.0 (<2.0) mg/dL Ur Leukocyte Esterase Negative (Negative) Acetone, Qual (Negative) Coronavirus (PCR) Not Detected (Not Detected) Disposition When asked, does pt state using other controlled substances?: No Decision Date: 10/07/19 Decision Time: 21:32 <Luma Tony - Last Filed: 10/09/19 02:00> <Adina Duncan - Last Filed: 10/11/19 15:29> Clinical Impression: Acute hyperglycemia, Nausea Disposition: ADMITTED IP TO THIS HOSP Condition: Good
[2019-10-07 20:07] LABS: Glucose,Whole Blood 379 mg/dL (75-99)
[2019-10-07 20:33] LABS: Appearance,Urine Clear (Clear); Bilirubin,Urine Negative (Negative); Blood,Urine Negative (Negative); Color,Urine Colorless; Glucose,Urine (UA) 4+ (Negative); Leukocyte Esterase,Urine Negative (Negative); Nitrite,Urine Negative (Negative); Protein,Urine Trace (Negative); Specific Gravity,Urine 1.032 (1.001-1.035); Urobilinogen,Urine <2.0 mg/dL (<2.0)
[2019-10-07 21:00] LABS: Ketones,Urine 2+ (Negative)
[2019-10-07] MEDS ORDERED: ONDANSETRON 4 MG/2 ML VIAL IVP PRN (21:27)
[2019-10-07] MEDS ORDERED: ACETAMINOPHEN TAB 325 MG TAB PO PRN (21:27)
[2019-10-07] MEDS ORDERED: NALOXONE 0.4 MG/ML 1 ML VIAL IV PRN (21:27)
[2019-10-07] MEDS: SODIUM CHLORIDE 0.9% 1,000 ML IV SCH (21:58)
[2019-10-07 22:05] LABS: Glucose,Whole Blood 360 mg/dL (75-99)
[2019-10-07] MEDS ORDERED: INSULIN DETEMIR (LEVEMIR) 100 UNIT/ML SYR SQ SCH (23:45)
[2019-10-07 23:51] VITALS: RESP 18
[2019-10-07 23:55] LABS: Glucose,Whole Blood 298 mg/dL (75-99)
--- NOTE | 2019-10-07 23:58 | P.HPIM ---
History of Present Illness H&P Date: 10/07/19 Chief Complaint: weakness and fall 64 year old male with CAD s/p stents, DM on oral hypoglycemic agent patient comes in with generalized weaknes and one episode of falling at home. he found that his blood sugar became very hard to control off his metformin and decided to come seeking medical help. he used to be on insulin , but about 5 months ago , his doctor switched him to metformin. that since he started he noticed, weight loss , he reports about 60 lb weight loss over the past 4-5 months. he denies any smoking, or chronic cough, he denies any GI bleeding. he reports good appetite and PO intake. he denies any sweating, loose bowel movements, or palpitations. about less than a week ago , he decided to stop metformin due to dehydration. he found himself urinating a lot, and believes that metformin making him dehydrated. he checks his blood sugar on regluar basis, and since he has stopped the medicine , he found his blood sugar reading higher than usual and started feeling progressive generalized weakness, today he sustained a fall with no injuries or LOC, had a sugary drink after, and found that his blood sugar in the 700 range, and decided to come to the hospital . he denies any hematuria or dysuria, he claims to be uptodate on age appropriate cancer screening and his most recent Cscope was about 1-2 years ago and was told that it looked fine. he does not take any diuretics, and has not had any medications changes other than what mentioned above. in the ED he was found to have elevated blood sugar , positive urine for acetone , but very mild acidosis with bicarb at 20. no focus of infection suspected or identified, patient admitted for blood sugar control and hydration Review of Systems Pertinent positives as noted in HPI. All other systems were reviewed and are negative Past Medical History Past Medical History: Diabetes Mellitus, Hypertension, Myocardial Infarction ([place]) Additional Past Medical History / Comment(s): mi x2 Last Myocardial Infarction Date:: 2013 History of Any Multi-Drug Resistant Organisms: None Reported Past Surgical History: Appendectomy, Heart Catheterization With Stent, Tonsillectomy Date of Last Stent Placement:: N/A Past Psychological History: No Psychological Hx Reported Smoking Status: Never smoker Past Alcohol Use History: None Reported Past Drug Use History: None Reported - Past Family History Mother Family Medical History: Cancer Additional Family Medical History / Comment(s): Mother of cancer at 63 years of age. Father Family Medical History: Diabetes Mellitus, Hypertension, Myocardial Infarction ([place]) Additional Family Medical History / Comment(s): Father from [place] at 59 years of age. Medications and Allergies Home Medications Medication Instructions Recorded Confirmed Type Insulin Glargine,Hum.rec.anlog 38 unit SQ HS 12/22/18 10/07/19 History [Lantus Solostar] metFORMIN HCL [Glucophage] 1,000 mg PO BID 10/07/19 10/07/19 History Allergies Allergy/AdvReac Type Severity Reaction Status Date / Time [facility] Adv[facility] Abdominal Verified 10/07/19 21:55 Pain metformin AdvReac Diarrhea Verified 10/07/19 21:55 Physical Exam Vitals: Vital Signs Temp Pulse Resp BP Pulse Ox 10/07/19 22:01 97.4 F L 83 16 126/81 94 L 10/07/19 20:08 92 18 132/90 95 10/07/19 17:38 99.4 F 102 H 16 149/97 93 L Intake and Output 10/07/19 10/07/19 10/08/19 14:59 22:59 06:59 Other: Weight 84.822 kg Constitutional: No acute distress, conversant, pleasant Eyes: Anicteric sclerae, moist conjunctiva, Pupils equal round reactive to light ENMT: NC/AT Oropharynx clear, no erythema, exudates Neck: Supple, FROM, no masses, or JVD No carotid bruits No thyromegaly Lungs: Clear to auscultation Clear to percussion Normal respiratory effort, no accessory muscle use Cardiovascular: Heart regular in rate and rhythm, No murmurs, gallops, or rubs No peripheral edema Abdominal: Soft Nontender, no guarding, rebound or rigidity Abdomen moving with respiration Normoactive bowel sounds No hepatomegaly, No splenomegaly No palpable mass No abdominal wall hernia noted Skin: Normal temperature, tone, texture, turgor No induration No subcutaneous nodules No rash, lesions No ulcers Extremities: No digital cyanosis No clubbing Pedal pulses intact and symmetrical Radial pulses intact and symmetrical No calf tenderness Psychiatric: Alert and oriented to person, place and time Appropriate affect fair judgement Neuro Muscles Strength 5/5 in all 4 extremities Sensation to light touch grossly present throughout Cranial nerves II-XII grossly intact No focal sensory deficits Lymphatics: no palpable cervical or supraclavicular , or inguinal lymph nodes Results CBC & Chem 7: 10/07/19 17:47 10/07/19 17:47 Labs: Abnormal Lab Results - Last 24 Hours (Table) 10/07/19 10/07/19 10/07/19 Range/Units 17:47 17:50 20:00 Sodium 131 L (137-145) mmol/L Carbon Dioxide 20 L (22-30) mmol/L BUN 30 H (9-20) mg/dL Glucose 580 H* (74-99) mg/dL POC Glucose (mg/dL) 590 H (75-99) mg/dL Alkaline Phosphatase 180 H (38-126) U/L Urine Protein Trace H (Negative) Urine Glucose (UA) 4+ H (Negative) Urine Ketones 2+ H (Negative) 10/07/19 10/07/19 Range/Units 20:05 22:04 Sodium (137-145) mmol/L Carbon Dioxide (22-30) mmol/L BUN (9-20) mg/dL Glucose (74-99) mg/dL POC Glucose (mg/dL) 379 H 360 H (75-99) mg/dL Alkaline Phosphatase (38-126) U/L Urine Protein (Negative) Urine Glucose (UA) (Negative) Urine Ketones (Negative) Assessment and Plan Assessment: 64 year old male with CAD s/p stents, DM on oral hypoglycemic agent. patient had progressive generalized weaknesa and elevated blood sugar since he has stopped his metformin due to dehydration, he believes the medicine is making him urinate alot resulting in dehydration and weight loss. found to be hyperglycemic, admitted for sugar control and IVF hydration hyperglycemia with very mild acidosis pseudohyponatremia 2/2 above IVF hydration insulin sc bolus dose then sliding scale baseline insulin close blood sugar monitoring chronic conditions CAD s/p 2 stents hypertension patient does not know his medications unintentional weight loss polyuria possibly due to poorly controlled diabetes rule out underlying cancer , consider OP follow up rule out hyperthyroidism CODE STATUS:full code DVT prophylaxis: heparin sc tid Discussed with: Patient, ER, RN Anticipated length of stay < than [address]: home A total of 75 minutes was spent on the care of this complex patient more than 50% of the time was spent in counseling and care coordination.
[2019-10-08] MEDS: INSULIN ASPART (NovoLOG) 100 UNIT/ML VIAL SQ SCH ×3 (00:20→12:24)
[2019-10-08 05:30] VITALS: BP 142/78; PULSE 80; TEMP 98.2
[2019-10-08 07:01] LABS: Glucose,Whole Blood 257 mg/dL (75-99)
[2019-10-08 07:15] LABS: African American GFR (CKD) >90 (>60 ml/min/1.73 sqM); Anion Gap 5 mmol/L; Blood Urea Nitrogen 17 mg/dL (9-20); Calcium 8.4 mg/dL (8.4-10.2); Carbon Dioxide 26 mmol/L (22-30); Chloride 106 mmol/L (98-107); Glucose 212 mg/dL (74-99); Non-African American GFR(CKD) >90 (>60 ml/min/1.73 sqM); Potassium 4.2 mmol/L (3.5-5.1); Sodium 137 mmol/L (137-145)
[2019-10-08] MEDS ORDERED: HEPARIN SODIUM,PORCINE 5,000 UNIT/ML 1 ML VIAL SQ SCH (08:00)
--- NOTE | 2019-10-08 09:56 | P.DS ---
Providers Date of admission: 10/07/19 21:33 Expected date of discharge: 10/08/19 Attending physician: Talya Saini MD Primary care physician: Tomas Jackson Hospital Course: Discharge Diagnosis: Mild DKA Generalized weakness Fall Unintentional weight loss Dehydration pseudohyponatremia Hospital Course: Patient is a 64-year-old male with diabetes mellitus type 2 on Lantus and metformin, prior myocardial infarction with coronary artery disease and prior stenting, and hypertension who presented to the emergency department secondary to generalized weakness and falling at home. In the ER he underwent an extensive evaluation. On arrival he was slightly tachycardic with heart rate of 102. Initial laboratory analysis showed mild DKA with a carbon dioxide of 20 and acetone positive. His blood sugar was 600. He was given IV fluids and treated with subcutaneous insulin. He was placed in observation. By the morning after admission his blood sugars had improved to 200s and his acidosis had fully resolved. He was seen by physical therapy and did well with ambulating. He will restart his lantus and already has an appointment with Dr. Jackson on 10/11 where they can discuss is continues weight loss. Arrangements were made for home health care. I have also referred him for diabetic education. Of note the patient stopped repeat Apidra slightly 5 months ago. He was taking his Lantus until 48 hours ago. It is unclear when he stopped metformin but appears it was 2 weeks ago. Patient seen and examined at bedside. No chest pain, SOB, nausea, or vomiting. Vital signs reviewed and stable. General: non toxic, no distress, appears at stated age Derm: warm, dry Head: atraumatic, normocephalic, symmetric Eyes: EOMI, no lid lag, anicteric sclera Mouth: no lip lesion, mucus membranes moist Cardiovascular: S1S2 reg, no murmur, positive posterior tibial pulse bilateral, Lungs: CTA bilateral, no rhonchi, no rales , no accessory muscle use Ext: no gross muscle atrophy, no edema, no contractures Neuro: CN II-XI grossly intact, no focal neuro deficits Psych: Alert, oriented, appropriate affect A total of 25 minutes of time were spent preparing this complex discharge summary . Patient Condition at Discharge: Good Plan - Discharge Summary Discharge Rx Participant: Yes New Discharge Prescriptions: Continue Insulin Glargine,Hum.rec.anlog [Lantus Solostar] 38 unit SQ HS Discontinued metFORMIN HCL [Glucophage] 1,000 mg PO BID Discharge Medication List Insulin Glargine,Hum.rec.anlog [Lantus Solostar] 38 unit SQ HS 12/22/18 [History] Follow up Appointment(s)/Referral(s): Tomas Jackson [Primary Care Provider] - 1-2 days Activity/Diet/Wound Care/Special Instructions: Activity: as tolerated Diet: heart health Special Instructions: Keep your appointment with Dr. Jackson on SaturdayOctober 11. Take Lantus as prescribed. Please make a chart of your morning blood sugars to bring to appointment. Home health will come out to help you manage blood sugars Discharge Disposition: HOME WITH HOME HEALTH SERVICES
[2019-10-08 11:30] LABS: Glucose,Whole Blood 253 mg/dL (75-99)
[2019-10-08] MEDS: SODIUM CHLORIDE 0.9% 1,000 ML IV SCH (12:24)
[2019-10-08 13:27] VITALS: BMI 26.8
[2019-10-08 19:59] LABS: Hemoglobin A1C 15.8 % (4.0-6.0)
[2019-10-08] MEDS ORDERED: INSULIN ASPART (NovoLOG) 100 UNIT/ML VIAL SQ SCH (23:31)
== END 2019-10-08 14:53 | disposition home or self-care (01) ==
LOC: EC 17:35 → 5NMEDONC 21:33 → OBSVTOIN 21:33 → INTOOBSV 21:33 → UNDODISIN 10-08 14:53
PROVIDERS: ADMIT Internal Medicine; ATTEND Internal Medicine
DX: E11.10 Type 2 diabetes mellitus with ketoacidosis without coma (principal); E86.0 Dehydration; W19.XXXA Unspecified fall, initial encounter; E11.65 Type 2 diabetes mellitus with hyperglycemia; E87.1 Hypo-osmolality and hyponatremia; I25.10 Atherosclerotic heart disease of native coronary artery without angina pectoris; R00.0 Tachycardia, unspecified; R63.4 Abnormal weight loss; Z68.26 Body mass index [BMI] 26.0-26.9, adult; I25.2 Old myocardial infarction; Z95.5 Presence of coronary angioplasty implant and graft; I10 Essential (primary) hypertension; Z03.818 Encounter for observation for suspected exposure to other biological agents ruled out; Z83.3 Family history of diabetes mellitus; Z82.49 Family history of ischemic heart disease and other diseases of the circulatory system; Z79.4 Long term (current) use of insulin; Z88.8 Allergy status to other drugs, medicaments and biological substances; Z80.9 Family history of malignant neoplasm, unspecified
CPT/HCPCS: 96372; 96360; 96361; 99285; 36415; 93005; 97161; 80053; 80048; 84443; 82009; 83605; 84484; 85025; 81003; 83036; G0378 ×2; U0003; J1644

== ENCOUNTER → 2019-10-19 | Outpatient (CLI) | payer MEDICARE ==
--- NOTE | 2019-10-19 08:02 | CT ---
EXAMINATION TYPE: CT brain w con DATE OF EXAM: 10/19/2019 COMPARISON: NONE EXAMINATION TYPE: CT brain w con DATE OF EXAM: 10/19/2019 COMPARISON: None. HISTORY: Frequent fall, pain in right side radiating into right leg CT DLP: 1126.5 mGycm. Automated Exposure Control for Dose Reduction was Utilized. TECHNIQUE: CT scan of the head is performed with IV Contrast, patient injected with 100 mL of Isovu e 300. FINDINGS: Mild ventricular and sulcal prominence. Postcontrast images show no suspicious enhancing in traparenchymal mass or midline shift. Cain-white matter differentiation is maintained. Vascular calci fication distal internal carotid arteries bilaterally is present. The globes are intact and the visua lized sinuses are clear. IMPRESSION: No suspicious enhancing mass or midline shift.
== END | disposition home or self-care (01) ==
LOC: RADCTMAIN 06:35
PROVIDERS: ATTEND Family Medicine
DX: R29.6 Repeated falls (principal)
CPT/HCPCS: 70460; Q9967

== ENCOUNTER 2020-01-19 10:04 | Inpatient (IN) | payer MEDICARE ==
[2020-01-19] MEDS ORDERED: HEPARIN SODIUM,PORCINE 5,000 UNIT/ML 1 ML VIAL IV STA (10:09)
[2020-01-19] MEDS ORDERED: NITROGLYCERIN OINT 1 INCH/GM PACKET TOPICAL STA (10:09)
[2020-01-19] MEDS ORDERED: ATORVASTATIN 80 MG TAB PO STA (10:10)
--- NOTE | 2020-01-19 10:23 | ED ---
Chest Pain HPI - General Chief Complaint: Chest Pain Stated Complaint: Possible STEMI Time Seen by Provider: 01/19/20 10:04 Source: patient, RN notes reviewed, old records reviewed Mode of arrival: EMS Limitations: no limitations - History of Present Illness Initial Comments: This is a 64-year-old male with a history of IA in the past with 3 stents who states he had the onset of retrosternal severe chest pain pressure that started about 40 minutes prior to arrival. He denies any nausea vomiting fevers chills he has had sweats with it no other symptoms. He states it feels exactly like his previous cardiac event. He did take nitroglycerin at home without relief he had 2 more in addition +324 mg aspirin without any relief initial pain he states was approximately 9/10 upon arrival he states it was 10/10. No other complaints or modifying factors. MD Complaint: chest pain - Related Data Home Medications Medication Instructions Recorded Confirmed Insulin Glargine,Hum.rec.anlog 38 unit SQ HS 12/22/18 10/07/19 [Lantus Solostar] Allergies Allergy/AdvReac Type Severity Reaction Status Date / Time dulaglutide [From [facility]] AdvReac Abdominal Verified 01/19/20 10:35 Pain metformin AdvReac Diarrhea Verified 01/19/20 10:35 Review of Systems ROS Statement: Those systems with pertinent positive or pertinent negative responses have been documented in the HPI. ROS Other: All systems not noted in ROS Statement are negative. EKG Findings - EKG Results: EKG: interpreted by STEFFI, sinus rhythm (Sinus rhythm rate of 60. Interval 190 QRS duration 100 QT since QTC 4:30/4:30 and complete right bundle-branch block evidence of ST elevation in leads II, III, and F aVF with reciprocal changes in aVL additionally evidence of some ST depression in V2 V3 and evidence of elevation in leads V6. This ) Past Medical History Past Medical History: Diabetes Mellitus, Hypertension, Myocardial Infarction ([place]) Additional Past Medical History / Comment(s): mi x2 Last Myocardial Infarction Date:: 2013 History of Any Multi-Drug Resistant Organisms: None Reported Past Surgical History: Appendectomy, Heart Catheterization With Stent, Tonsillectomy Past Anesthesia/Blood Transfusion Reactions: No Reported Reaction Date of Last Stent Placement:: N/A Past Psychological History: No Psychological Hx Reported Smoking Status: Never smoker Past Alcohol Use History: None Reported Past Drug Use History: None Reported - Past Family History Mother Family Medical History: Cancer Additional Family Medical History / Comment(s): Mother of cancer at 63 years of age. Father Family Medical History: Diabetes Mellitus, Hypertension, Myocardial Infarction ([place]) Additional Family Medical History / Comment(s): Father from [place] at 59 years of age. General Exam - General Exam Comments Initial Comments: This is a well-developed well-nourished awake alert oriented times 3 male Limitations: no limitations General appearance: alert, anxious, in distress Head exam: Present: atraumatic, normocephalic, normal inspection Eye exam: Present: normal appearance, PERRL, EOMI. Absent: scleral icterus, conjunctival injection, periorbital swelling ENT exam: Present: normal exam, mucous membranes moist Neck exam: Present: normal inspection, full ROM, other (No stridor JVD or bruits). Absent: tenderness, meningismus, lymphadenopathy Respiratory exam: Present: normal lung sounds bilaterally. Absent: respiratory distress, wheezes, rales, rhonchi, stridor Cardiovascular Exam: Present: regular rate, normal rhythm, normal heart sounds. Absent: systolic murmur, diastolic murmur, rubs, gallop, clicks GI/Abdominal exam: Present: soft, normal bowel sounds. Absent: distended, tenderness, guarding, rebound, rigid Extremities exam: Present: normal inspection, full ROM, normal capillary refill. Absent: tenderness, pedal edema, joint swelling, calf tenderness Back exam: Present: normal inspection Neurological exam: Present: alert, oriented X3, CN II-XII intact Psychiatric exam: Present: normal affect, normal mood Skin exam: Present: warm, intact, normal color, diaphoretic. Absent: rash Course Vital Signs 01/19/20 10:05 Temperature 98.1 F Pulse Rate 59 L Respiratory 20 Rate Blood Pressure 124/84 O2 Sat by Pulse 96 Oximetry - Reevaluation(s) Reevaluation #1: 01/19/20 10:24 Upon arrival and examining EKG including one from EMS a STEMI alert was called. Dr. Patel from cardiology did respond to. Reevaluation #2: 01/19/20 10:25 Appropriate orders were placed on the patient x-ray was performed I did review the x-rays no evidence of acute findings on chest x-ray Reevaluation #3: 01/19/20 10:25 I did discuss case with Dr. Millan as well as Dr. Patel who did call back. Chest Pain MDM - MDM The patient continued to have chest pain. The cardiology team was consult at and they come see the patient patient was eventually taken to [facility]. I did discuss this with the patient prior to departure. The patient does continue to have chest pain with no relief thus far Critical Care Time Critical Care Time: Yes Total Critical Care Time: 31 Critical Care Time: 31 minutes of critical care time which includes initial presentation with history physical labs x-rays. Review of old charting that was available. Multiple reevaluation the patient. Discussion with cardiology and with the admitting physician. Admission orders and documentation the above. Disposition Clinical Impression: ST elevation myocardial infarction (STEMI), Chest pain Disposition: ADMITTED IP TO THIS HOSP Condition: Serious Referrals: Tomas Jackson [Primary Care Provider] - 1-2 days
[2020-01-19] MEDS ORDERED: IV FLUID CONTINUATION 1,000 ML IV ONE (10:28)
[2020-01-19] MEDS ORDERED: LIDOCAINE 1% INJ 10MG/ML (20 ML MDV) SQ ONE (10:33)
[2020-01-19 10:34] LABS: African American GFR (CKD) >90 (>60 ml/min/1.73 sqM); Albumin 4.2 g/dL (3.5-5.0); Anion Gap 7 mmol/L; Blood Urea Nitrogen 18 mg/dL (9-20); Calcium 9.6 mg/dL (8.4-10.2); Carbon Dioxide 27 mmol/L (22-30); Chloride 100 mmol/L (98-107); Glucose 345 mg/dL (74-99); Magnesium 1.8 mg/dL (1.6-2.3); Non-African American GFR(CKD) >90 (>60 ml/min/1.73 sqM); Potassium 4.6 mmol/L (3.5-5.1); Sodium 134 mmol/L (137-145)
[2020-01-19] MEDS ORDERED: MIDAZOLAM 2 MG/2 ML VIAL IVP ONE (10:34)
[2020-01-19 10:35] LABS: ALT 34 U/L (4-49); AST 25 U/L (17-59); Alkaline Phosphatase 136 U/L (38-126); Creatine Kinase 100 U/L (55-170); Total Bilirubin 0.5 mg/dL (0.2-1.3)
--- NOTE | 2020-01-19 10:40 | XR ---
EXAMINATION TYPE: XR chest 1V portable DATE OF EXAM: 01/19/2020 Comparison: 12/22/2018 Clinical History: 64-year-old male Chest Pain Findings: Heart normal size. Aorta and pulmonary vasculature within normal limits. Mild interstitial prominence is unchanged and no consolidation. Impression: Chronic changes without acute cardiopulmonary process.
[2020-01-19] MEDS ORDERED: HEPARIN SODIUM 1,000 UN/ML (10ML VL) ONE (10:46)
--- NOTE | 2020-01-19 10:48 | P.CRDCN ---
History of Present Illness Consult date: 01/19/20 Reason for Consult (text): Inferior STEMI Chief complaint: Chest pain History of present illness: This is a pleasant 64-year-old gentleman with documented history of diabetes, hypertension, hyperlipidemia, coronary artery disease with prior stent placements, exact details unavailable although the patient states his most recent stenting was performed approximately 8 years ago. He follows with Dr. Mccurdy as his Protection Manager. Patient presented to the emergency room with symptoms of severe midsternal chest pressure and heaviness. Started approximately 30 minutes prior to his ER arrival. Patient states he was in his house when the symptoms started, just getting ready to go out to his garage to do some work. He was short of breath and diaphoretic. His EKG was reviewed in the emergency room and showed ST elevation in the inferior leads with reciprocal changes in the lateral leads. At the time of my evaluation in the emergency room the patient continued to have pain which she was rating at a 9 or 10. He received aspirin and sublingual nitroglycerin as well as 80 mg of Lipitor. Started a heparin bolus. Patient was advised and recommended to go directly to the cardiac catheterization lab for an emergent cardiac catheterization. The risks and the benefits were explained to the patient and he was willing to proceed. Blood pressure in the emergency room 124/84 with a heart rate of 60, 9 6% on 2 L of oxygen. No lab data was available, chest x-ray was performed and reviewed by the ER physician, no acute changes. Past Medical History Past Medical History: Diabetes Mellitus, Hypertension, Myocardial Infarction ([place]) Additional Past Medical History / Comment(s): mi x2 Last Myocardial Infarction Date:: 2013 History of Any Multi-Drug Resistant Organisms: None Reported Past Surgical History: Appendectomy, Heart Catheterization With Stent, Tonsil lectomy Past Anesthesia/Blood Transfusion Reactions: No Reported Reaction Date of Last Stent Placement:: N/A Past Psychological History: No Psychological Hx Reported Smoking Status: Never smoker Past Alcohol Use History: None Reported Past Drug Use History: None Reported - Past Family History Mother Family Medical History: Cancer Additional Family Medical History / Comment(s): Mother of cancer at 63 years of age. Father Family Medical History: Diabetes Mellitus, Hypertension, Myocardial Infarction ([place]) Additional Family Medical History / Comment(s): Father from [place] at 59 years of age. Medications and Allergies Home Medications Medication Instructions Recorded Confirmed Type Insulin Glargine,Hum.rec.anlog 38 unit SQ HS 12/22/18 01/19/20 History [Lantus Solostar] Aspirin EC [Ecotrin Low Dose] 81 mg PO DAILY 01/19/20 01/19/20 History INSULIN LISPRO (humaLOG) [humaLOG] 5 units SQ AC-TID 01/19/20 01/19/20 History Isosorbide Mononitrate ER [Imdur] 30 mg PO DAILY 01/19/20 01/19/20 History Lisinopril [Prinivil] 10 mg PO DAILY 01/19/20 01/19/20 History Allergies Allergy/AdvReac Type Severity Reaction Status Date / Time dulaglutide [From [facility]] AdvReac Abdominal Verified 01/19/20 10:35 Pain metformin AdvReac Diarrhea Verified 01/19/20 10:35 Physical Exam Vitals: Vital Signs Temp Pulse Resp BP Pulse Ox 01/19/20 10:05 98.1 F 59 L 20 124/84 96 Intake and Output 01/18/20 01/19/20 01/19/20 22:59 06:59 14:59 Other: Weight 90.718 kg PHYSICAL EXAMINATION: GENERAL: 64 stroke gentleman, complaining of chest pain, rated at 9-10 at the time of my evaluation in the emergency room HEENT: Head is atraumatic, normocephalic. Pupils equal, round. Sclera anicteric. Conjunctiva are clear. Mucous membranes of the mouth are moist. Neck is supple. There is no elevated jugular venous pressure. No carotid bruit is heard. HEART EXAMINATION: Heart S1, S2 normal. No murmur or gallop heard. CHEST EXAMINATION: Lungs are clear to auscultation and precussion. No chest wall tenderness is noted on palpation or with deep breathing. ABDOMEN: Soft, nontender. Bowel sounds are heard. No organomegaly noted. EXTREMITIES: 2+ peripheral pulses with no evidence of peripheral edema and no calf tenderness noted. NEUROLOGIC patient is awake, alert and oriented 3 . . Results 01/19/20 10:11 Cardiac Enzymes 01/19/20 Range/Units 10:11 AST 25 (17-59) U/L Comprehensive Metabolic Panel 01/19/20 Range/Units 10:11 Sodium 134 L (137-145) mmol/L Potassium 4.6 (3.5-5.1) mmol/L Chloride 100 (98-107) mmol/L Carbon Dioxide 27 (22-30) mmol/L BUN 18 (9-20) mg/dL Creatinine 0.77 (0.66-1.25) mg/dL Glucose 345 H (74-99) mg/dL Calcium 9.6 (8.4-10.2) mg/dL AST 25 (17-59) U/L ALT 34 (4-49) U/L Alkaline Phosphatase 136 H (38-126) U/L Total Protein 7.0 (6.3-8.2) g/dL Albumin 4.2 (3.5-5.0) g/dL Intake and Output 01/18/20 01/19/20 01/19/20 22:59 06:59 14:59 Other: Weight 90.718 kg Patient Weight 01/20/20 06:59 Weight 90.718 kg 01/19/20 10:11 EKG Interpretations (text) EKG shows normal sinus rhythm with ST elevation noted in the inferior leads and reciprocal changes noted in the lateral leads Assessment and Plan Plan: Assessment and plan #[address] elevation myocardial infarction #2 known history of coronary artery disease with prior stent placements #3 hypertension #4 diabetes #5 hyperlipidemia Plan Patient was advised to go directly to the cardiac catheterization lab for emergent cardiac catheterization, the risks and the benefits were explained to the patient in detail and he was willing to proceed. Further recommendations will be based on those findings and the patient's overall clinical course. DNP note has been reviewed, I agree with a documented findings and plan of care. Patient was seen and examined.
[2020-01-19 10:50] LABS: Basophils % (A) 0 %; Eosinophils # (A) 0.3 k/uL (0-0.7); Eosinophils % (A) 3 %; HCT 48.4 % (39.0-53.0); HGB 16.1 gm/dL (13.0-17.5); Lymphocytes # (A) 4.1 k/uL (1.0-4.8); Lymphocytes % (A) 42 %; MCH 27.9 pg (25.0-35.0); MCHC 33.2 g/dL (31.0-37.0); MCV 84.1 fL (80.0-100.0); Mean Platelet Volume 7.5; Monocytes # (A) 0.5 k/uL (0-1.0); Monocytes % (A) 5 %; Neutrophils # (A) 4.7 k/uL (1.3-7.7); Neutrophils % (A) 48 %; Platelet Count 305 k/uL (150-450); RBC 5.76 m/uL (4.30-5.90); WBC 9.7 k/uL (3.8-10.6)
[2020-01-19] MEDS: HEPARIN SODIUM 1,000 UN/ML (10ML VL) IV ONE ×4 (10:51→11:36)
[2020-01-19] MEDS ORDERED: TIROFIBAN BOLUS 12.5MG/250 ML BAG IV ONE (10:54)
[2020-01-19] MEDS ORDERED: TIROFIBAN 12.5MG-250ML NS 250 ML IV ONE (10:54)
[2020-01-19 11:01] LABS: D-Dimer 0.27 mg/L FEU (<0.60); INR 0.9 (<1.2); Prothrombin Time 9.7 sec (9.0-12.0)
[2020-01-19] MEDS ORDERED: NITROGLYCERIN 1000MCG/10ML SYRINGE INTRACORON ONE (11:24)
[2020-01-19] MEDS ORDERED: HYDROmorphone 1 MG/ML 1 ML SYRINGE IVP ONE (11:29)
[2020-01-19] MEDS ORDERED: CLOPIDOGREL 75 MG TAB ONE (11:30)
[2020-01-19] MEDS ORDERED: ATROPINE SULFATE 0.1 MG/ML 10ML SYRINGE IV PRN (11:33)
[2020-01-19] MEDS ORDERED: ZOLPIDEM 5 MG TAB PO PRN (11:33)
[2020-01-19] MEDS ORDERED: RX INFO: IV CONTRAST WAS GIVEN 1 EACH MISC MISCELLANE PRN (11:33)
[2020-01-19] MEDS ORDERED: NITROGLYCERIN SL TABS 0.4 MG TAB SUBLINGUAL PRN (11:33)
[2020-01-19] MEDS ORDERED: MAG HYDROX/AL HYDROX/SIMETH 30 ML CUP PO PRN (11:33)
[2020-01-19] MEDS ORDERED: IOPAMIDOL-370 125ML BTL INJ ONE (11:37)
[2020-01-19] MEDS ORDERED: CLOPIDOGREL 75 MG TAB PO ONE (11:37)
--- NOTE | 2020-01-19 11:43 | CC ---
CARDIAC CATHETERIZATION REPORT INDICATION: Acute ST-segment elevation GA. PROCEDURE NOTE: After obtaining informed consent, left heart catheterization and coronary angiogram were performed via the right femoral artery using standard Lawrence catheters. The patient tolerated the procedure well without any obvious immediate complication. Patient received moderate conscious sedation. Total sedation time was 15 minutes. FINDINGS: 1. HEMODYNAMICS: Left ventricular end-diastolic pressure is 12-14 mm. There is no significant gradient across the aortic valve. 2. LEFT VENTRICULOGRAM: Left ventriculogram is not performed. 3. ANGIOGRAPHIC DATA: LEFT MAIN CORONARY ARTERY: Left main coronary artery is a normal-sized vessel, appears calcified but is free of significant stenosis. Divides into left anterior descending coronary artery and circumflex coronary artery. LAD shows a moderate atherosclerotic plaque in the proximal portion with a 50% to 60% stenosis. Circumflex coronary artery gives off a large caliber OM branch that shows an 80% to 90% stenosis in the proximal portion. Right coronary artery is totally occluded in its midportion. There are extensive collaterals from the left to the distal RCA. CONCLUSION: Acutely occluded right coronary artery with significant obstructive CAD involving LAD and circumflex coronary artery. PLAN: Patient will undergo angioplasty of the right coronary artery. MMODL / IJN: [id number] /
--- NOTE | 2020-01-19 11:49 | LTR ---
DATE OF SERVICE: 01/19/2020 RE: Benjamin Yang Dear Tomas; I performed cardiac catheterization on dominant vessel, a detailed catheterization note is enclosed for your records. In brief, cardiac catheterization revealed an acutely occluded right coronary artery with significant disease involving the LAD and circumflex coronary artery. The patient will undergo angioplasty of the right coronary artery. Thank you for giving me the privilege in participating in the care of this pleasant gentleman. Sincerely, MD GUIDO Lange / SHELIA: [id number] /
[2020-01-19 12:04] LABS: Glucose,Whole Blood 266 mg/dL (75-99)
[2020-01-19] MEDS: INSULIN ASPART (NovoLOG) 100 UNIT/ML VIAL SQ SCH ×2 (12:11→16:58)
[2020-01-19] MEDS: SODIUM CHLORIDE 0.9% 1,000 ML IV SCH (12:12)
[2020-01-19] MEDS: TIROFIBAN 12.5MG-250ML NS 250 ML IV SCH (12:12)
[2020-01-19 16:52] LABS: Glucose,Whole Blood 173 mg/dL (75-99)
--- NOTE | 2020-01-19 17:01 | PTCA ---
PERCUTANEOUSTRANS CORORONARY ANGIOGRAPHY PROCEDURE: Percutaneous transluminal coronary angioplasty and stenting of a totally occluded right coronary artery performed in the setting of an acute inferior ST-elevation myocardial infarction with reperfusion accomplished in 51 minutes. PERFORMED BY: Dr. Mirian Herman. ANESTHESIA: Moderate conscious sedation time was 45 minutes. The patient was administered Versed. Oxygen saturation, hemodynamics and EKG were monitored closely. CLINICAL INFORMATION: Mr. Benjamin Yang is a 64-year-old gentleman with a history of CAD, prior inferior DE in May 2013 when he came in with a subtotal RCA occlusion and underwent stenting with multiple stents: a 3.5 in the mid, and distal stent was 3.0, and in the PDA branch I placed a 2.25 caliber stent. Since then he has followed with a financial services education consultant in the [facility]. He presented here with chest pain and inferior ST elevation, was seen by Dr. Patel in the emergency room, and he underwent prompt cardiac cath which revealed moderate disease in the left system, but RCA was totally occluded in the proximal portion well before the previously stented area. He was advised intervention that was performed in the same setting. Access was achieved from the left femoral approach by Dr. Patel. PROCEDURE NOTE: The existing 6-Latvian introducer in the left femoral artery was used to perform the procedure. I used a standard right Lawrence guide catheter to cannulate the right coronary artery of 6-Latvian caliber. The patient received heparin and Aggrastat infusion. He received close to 8500 units of heparin and ACT was about 202. He was also on Aggrastat bolus and drip as per protocol. A Whisper wire was used to cross the total occlusion. A 2.5 caliber 12 mm long Trek balloon was used to dilate the total occlusion. I then advanced the wire into the PLV branch and noted that the PDA was a probable chronic total occlusion with collaterals filling the PDA from the left system. This PDA was also stented in 2013, but it appears it may have occluded at the site of stenting, and distally the flow was coming both from the ipsilateral and mostly from the left-sided collaterals. The wire was kept in the PLV branch and after some deliberation, I tried to advance a 23 mm long 4.0 stent, but I had difficulty advancing the stent and telescoping into the previous stent. I tried to dilate the previous stent with a 3.0 NC Trek balloon at high pressures, but then I had still difficulty advancing the new 4.0 caliber stent. I then used a christal wire and used a run-through wire. With the Whisper wire as the christal and run-through wire as the one where I took the 4.0 stent over, I was able to advance it carefully and deployed this proximal to the previous stent and telescoped the distal end of this stent into the previous 3.5 stent. Stent was deployed at 12 atmospheres. Patient had chest pain and inferior ST elevation. Excellent angiographic result was achieved. There was a 40% lesion in the distal portion of the RCA before bifurcation into the PLV. PLV is a large branch. No significant disease. PDA is occluded, filled by ipsilateral as well as [id number] collaterals. Excellent angiographic result was achieved. Patient had a DIGNA-3 flow. He had no chest pain. He was hemodynamically stable. He received 600 mg of Plavix orally. The sheath was taken out and an Angio-Seal device used to secure hemostasis and he was sent to the room in a stable condition. Results were discussed with the patient, and several family members. I expect he will do well. Reperfusion was accomplished quickly. Echo will be performed tomorrow. The patient was sent to the ICU in a stable condition. MMODL / IJN: [id number] /
[2020-01-19] MEDS: MORPHINE SULFATE 2 MG/ML SYRINGE IVP PRN ×2 (17:11→21:36)
--- NOTE | 2020-01-19 18:10 | P.HPIM ---
History of Present Illness H&P Date: 01/19/20 Chief Complaint: Chest pain Patient is a 64-year-old male with a significant past medical history of diabetes, hypertension, hyperlipidemia, coronary disease with prior stent placement who presented to the ED with severe midsternal chest pressure and heaviness. Patient states that his symptoms started 30 minutes before coming to the ED. He states that his pain started when he is getting ready to go out to do some yard work. He took nitroglycerin without much relief. He then called EMS who brought him to the ED. He also complains of shortness of breath and diaphoresis. In the ED his EKG showed ST elevation in inferior leads. Patient was emergently taken for left heart catheterization that showed occluded right coronary artery, significant obstructive coronary disease involving LAD and circumflex coronary artery patient had PCI to the right coronary artery. Patient was seen in the ICU. He is currently complaining of 3 out of 10 burning chest pain. He was given morphine which he states helped with his pain. Review of Systems 10 ROS reviewed and are negative except as noted in HPI Past Medical History Past Medical History: Diabetes Mellitus, Hypertension, Myocardial Infarction ([place]) Additional Past Medical History / Comment(s): mi x2 Last Myocardial Infarction Date:: 2013 History of Any Multi-Drug Resistant Organisms: None Reported Past Surgical History: Appendectomy, Heart Catheterization With Stent, Tonsillectomy Past Anesthesia/Blood Transfusion Reactions: No Reported Reaction Date of Last Stent Placement:: N/A Past Psychological History: No Psychological Hx Reported Smoking Status: Never smoker Past Alcohol Use History: None Reported Past Drug Use History: None Reported - Past Family History Mother Family Medical History: Cancer Additional Family Medical History / Comment(s): Mother of cancer at 63 years of age. Father Family Medical History: Diabetes Mellitus, Hypertension, Myocardial Infarction ([place]) Additional Family Medical History / Comment(s): suicide Medications and Allergies Home Medications Medication Instructions Recorded Confirmed Type Insulin Glargine,Hum.rec.anlog 38 unit SQ HS 12/22/18 01/19/20 History [Lantus Solostar] Aspirin EC [Ecotrin Low Dose] 81 mg PO HS 01/19/20 01/19/20 History INSULIN LISPRO (humaLOG) [humaLOG] 5 units SQ AC-TID 01/19/20 01/19/20 History Isosorbide Mononitrate ER [Imdur] 30 mg PO HS 01/19/20 01/19/20 History Lisinopril [Prinivil] 10 mg PO HS 01/19/20 01/19/20 History Multivitamin [Multivitamins Adult 2 tab PO DAILY 01/19/20 01/19/20 History Gummies] Allergies Allergy/AdvReac Type Severity Reaction Status Date / Time dulaglutide [From [facility]] AdvReac Abdominal Verified 01/19/20 10:35 Pain metformin AdvReac Diarrhea Verified 01/19/20 10:35 Physical Exam Osteopathic Statement: *. No significant issues noted on an osteopathic structural exam other than those noted in the History and Physical/Consult. Vitals: Vital Signs Temp Pulse Pulse Resp BP BP Pulse Ox 01/19/20 15:00 62 15 129/74 93 L 01/19/20 14:00 65 15 130/78 93 L 01/19/20 13:00 60 13 131/79 93 L 01/19/20 12:00 68 60 16 96 01/19/20 11:02 98.2 F 60 16 131/79 97 01/19/20 10:05 98.1 F 59 L 20 124/84 96 Intake and Output 01/19/20 01/19/20 01/19/20 06:59 14:59 22:59 Intake Total 1079 75 Output Total 550 Balance 529 75 Intake: IV 1079 75 Sodium Chloride 0.9% 1, 225 75 000 ml @ 75 mls/hr IV . [id number] [facility] Rx#:[id number] Output: Urine 550 Other: Weight 88.3 kg General: [Alert and oriented, well nourished, no acute distress]. Eye: [PERRL, EOMI, normal conjunctiva]. HENT: [Normocephalic, clear tympanic membranes, normal hearing, moist oral mucosa, no scleral icterus, no sinus tenderness]. Neck: [Supple, non-tender, no carotid bruits, no JVD, no lymphadenopathy]. Lungs: [Clear to auscultation and percussion, non-labored respiration]. Heart: [Normal rate, regular rhythm, no murmur, gallop or edema]. Abdomen: [Soft, non-tender, non-distended, normal bowel sounds, no masses]. Musculoskeletal: [Normal range of motion and strength, no tenderness or swelling]. Skin: [Skin is warm, dry and pink, no rashes or lesions]. Neurologic: [Awake, alert, and oriented X3, CN II-XII intact]. Psychiatric: [Cooperative, appropriate mood and affect]. Results CBC & Chem 7: 01/19/20 10:11 01/19/20 10:11 Labs: Abnormal Lab Results - Last 24 Hours (Table) 01/19/20 01/19/20 01/19/20 Range/Units 10:11 10:11 12:02 APTT 21.0 L (22.0-30.0) sec Sodium 134 L (137-145) mmol/L Glucose 345 H (74-99) mg/dL POC Glucose (mg/dL) 266 H (75-99) mg/dL Alkaline Phosphatase 136 H (38-126) U/L Thrombosis Risk Factor Assmnt - Choose All That Apply Each Factor Represents 1 point: Acute [place] Each Risk Factor Represents 2 Points: Age 61-74 years Thrombosis Risk Factor Assessment Total Risk Factor Score: 3 Thrombosis Risk Factor Assessment Level: Moderate Risk Assessment and Plan Assessment: #ST elevation [place] status post left heart catheterization which showed occluded right coronary artery with significant obstructive coronary disease involving LAD and circumflex coronary artery. Patient had PCI to the right coronary artery. Resume aspirin, high intensity statin, metoprolol, lisinopril and Plavix. Check echocardiogram. Check lipid panel. Trend troponin. Cardiology on board #Coronary artery disease with prior stent placement. Management as above #Hypertension: Resume current BP meds #Diabetes: Resume home insulin regimen. Check hemoglobin A1c #Hyperlipidemia: Patient on high intensity statin CODE STATUS:full code DVT prophylaxis: mechanical Discussed with: Patient, ER, rn Anticipated length of stay > than [address]: home A total of 75 minutes was spent on the care of this complex patient more than 50% of the time was spent in counseling and care coordination.
[2020-01-19] MEDS: METOPROLOL TARTRATE 12.5 MG TAB PO SCH (20:18)
[2020-01-19] MEDS: INSULIN DETEMIR (LEVEMIR) 100 UNIT/ML SYR SQ SCH (20:18)
[2020-01-19 23:58] LABS: Glucose,Whole Blood 212 mg/dL (75-99)
[2020-01-20] MEDS: SODIUM CHLORIDE 0.9% 1,000 ML IV SCH (01:24)
[2020-01-20 02:36] LABS: Hemoglobin A1C 11.6 % (4.0-6.0)
[2020-01-20] MEDS: TIROFIBAN 12.5MG-250ML NS 250 ML IV SCH (03:32)
[2020-01-20 06:03] LABS: Glucose,Whole Blood 197 mg/dL (75-99)
[2020-01-20 06:51] LABS: Basophils % (A) 0 %; Eosinophils # (A) 0.2 k/uL (0-0.7); Eosinophils % (A) 3 %; HCT 45.6 % (39.0-53.0); HGB 15.2 gm/dL (13.0-17.5); Lymphocytes # (A) 1.9 k/uL (1.0-4.8); Lymphocytes % (A) 21 %; MCH 27.7 pg (25.0-35.0); MCHC 33.3 g/dL (31.0-37.0); MCV 83.4 fL (80.0-100.0); Mean Platelet Volume 7.1; Monocytes # (A) 0.5 k/uL (0-1.0); Monocytes % (A) 5 %; Neutrophils # (A) 6.6 k/uL (1.3-7.7); Neutrophils % (A) 70 %; Platelet Count 235 k/uL (150-450); RBC 5.47 m/uL (4.30-5.90); WBC 9.4 k/uL (3.8-10.6)
[2020-01-20] MEDS: INSULIN ASPART (NovoLOG) 100 UNIT/ML VIAL SQ SCH ×7 (06:57→20:37)
[2020-01-20 07:12] LABS: African American GFR (CKD) >90 (>60 ml/min/1.73 sqM); Anion Gap 5 mmol/L; Blood Urea Nitrogen 12 mg/dL (9-20); Calcium 8.7 mg/dL (8.4-10.2); Carbon Dioxide 26 mmol/L (22-30); Chloride 106 mmol/L (98-107); Cholesterol 189 mg/dL (<200); Glucose 180 mg/dL (74-99); HDL Cholesterol 29 mg/dL (40-60); LDL Cholesterol,Calculated 115 mg/dL (0-99); Non-African American GFR(CKD) >90 (>60 ml/min/1.73 sqM); Potassium 4.5 mmol/L (3.5-5.1); Sodium 137 mmol/L (137-145); Triglycerides 223 mg/dL (<150)
[2020-01-20] MEDS: METOPROLOL TARTRATE 12.5 MG TAB PO SCH ×2 (08:50→20:37)
[2020-01-20] MEDS: ASPIRIN 81 MG PO SCH (08:50)
[2020-01-20] MEDS: CLOPIDOGREL 75 MG TAB PO SCH (08:51)
[2020-01-20] MEDS: lisinopriL 10 MG TAB PO SCH (08:51)
[2020-01-20] MEDS ORDERED: ISOSORBIDE MONONITRATE ER 30 MG TAB.ER.24H PO SCH (09:00)
--- NOTE | 2020-01-20 10:00 | ECHOF ---
Referral Reason:LVEF MEASUREMENTS -------- HEIGHT: 177.8 cm WEIGHT: 88.0 kg BP: 123/88 IVSd: 1.5 cm (0.6 - 1.1) LVIDd: 4.0 cm (3.9 - 5.3) LVPWd: 1.5 cm (0.6 - 1.1) EDV(Teich): 70 ml IVSs: 1.8 cm LVIDs: 3.4 cm LVPWs: 1.8 cm %IVS Thck: 19 % ESV(Teich): 48 ml EF(Teich): 32 % %FS: 15 % SV(Teich): 22 ml LA Diam: 3.5 cm (2.7 - 3.8) RVIDd: 3.4 cm (< 3.3) IVC: 20.76 mm LALs A4C: 5.8 cm LAAs A4C: 18.2 cm LAESV A-L A4C: 48 ml LAESV MOD A4C: 46 ml LALs A2C: 5.5 cm LAAs A2C: 17.8 cm LAESV A-L A2C: 49 ml LAESV MOD A2C: 46 ml LAESV(A-L): 50 ml LAESV Index (A-L): 24.17 ml/m Ao Diam: 3.3 cm (2.0 - 3.7) AV Cusp: 2.2 cm (1.5 - 2.6) EPSS: 0.6 cm MV E Cesar: 0.70 m/s MV DecT: 234 ms MV Dec Yates: 3.0 m/s MV A Cesar: 0.73 m/s MV E/A Ratio: 0.96 MV PHT: 68 ms AV Vmax: 1.31 m/s AV maxP.86 mmHg MV EF SLOPE: 154.43 mm/s (70 - 150) MV EXCURSION: 18.83 mm (> 18.000) FINDINGS -------- Sinus rhythm. This was a technically good study. The left ventricular size is normal. There is moderate concentric left ventricular hypertrophy. O verall left ventricular systolic function is mildly impaired with, an EF between 45 - 50 %. Basal i nferior LV wall motion is hypokinetic. The right ventricle is mildly enlarged. Normal LA size by volume 22+/-6 ml/m2. The right atrium is normal in size. Interatrial and interventricular septum intact. The aortic valve is trileaflet and appears structurally normal. The mitral valve is normal. The tricuspid valve appears structurally normal. Trace/mild (physiologic) pulmonic regurgitation. The aortic root size is normal. Normal inferior vena cava with less than 50% inspiratory collapse consistent with estimated right atr ial pressure of 15 mmHg. There is no pericardial effusion. CONCLUSIONS -------- 1. The left ventricular size is normal. 2. There is moderate concentric left ventricular hypertrophy. 3. Overall left ventricular systolic function is mildly impaired with, an EF between 45 - 50 %. 4. Basal inferior LV wall motion is hypokinetic. 5. The right ventricle is mildly enlarged. 6. Normal LA size by volume 22+/-6 ml/m2. 7. The aortic valve is trileaflet and appears structurally normal. 8. Trace/mild (physiologic) pulmonic regurgitation. 9. Normal inferior vena cava with less than 50% inspiratory collapse consistent with estimated right atrial pressure of 15 mmHg. 10. There is no pericardial effusion. FIELD MAP TECHNICIAN: Autumn Larose RDCS
--- NOTE | 2020-01-20 10:14 | P.PN ---
Subjective Progress Note Date: 01/20/20 Principal diagnosis: CC: chest pain Patient is a 64-year-old male with a significant past medical history of diabetes, hypertension, hyperlipidemia, coronary disease with prior stent placement who presented to the ED with severe midsternal chest pressure and heaviness. Patient states that his symptoms started 30 minutes before coming to the ED. He states that his pain started when he is getting ready to go out to do some yard work. He took nitroglycerin without much relief. He then called EMS who brought him to the ED. He also complains of shortness of breath and diaphoresis. In the ED his EKG showed ST elevation in inferior leads. Patient was emergently taken for left heart catheterization that showed occluded right coronary artery, significant obstructive coronary disease involving LAD and circumflex coronary artery patient had PCI to the right coronary artery. His echocardiogram showed EF of 45-50% with basal inferior LV hypokinesia. His LDL is 1:15. Troponins after heart catheterization are trending down. Today patient states that his chest pain has improved. He states that he has not required any IV morphine for his chest pain. Objective - Vital Signs Vital signs: Vital Signs Temp 98.2 F 01/20/20 08:00 Pulse 70 01/20/20 08:00 Resp 18 01/20/20 08:00 BP 123/88 01/20/20 08:00 Pulse Ox 93 L 01/20/20 08:00 Intake & Output 01/19/20 01/20/20 01/20/20 18:59 06:59 18:59 Intake Total 1859 1140 75 Output Total 1150 2100 Balance 709 -960 75 Weight 88.3 kg 89 kg Intake: IV 1379 900 75 Sodium Chloride 0.9% 1, 525 900 75 000 ml @ 75 mls/hr IV . [id number] [facility] Rx#:[id number] Oral 480 240 Output: Urine 1150 2100 Other: # Voids 1 - Exam General examination - Alert and Oriented 3 in NAD Heart - + S1S2 no murmurs Lungs - Clear to auscultation Abdomen soft NT ND +ve BS Extremities - No edema TAKE OUT WAITRESS - Moving all 4 extremities spontaneously Psych - Calm and cooperative - Labs CBC & Chem 7: 01/20/20 06:14 01/20/20 06:14 Labs: Abnormal Lab Results - Last 24 Hours (Table) 0901/19/20 01/19/20 Range/Units 10:11 10:11 12:02 APTT 21.0 L (22.0-30.0) sec Sodium 134 L (137-145) mmol/L Glucose 345 H (74-99) mg/dL POC Glucose (mg/dL) 266 H (75-99) mg/dL Hemoglobin A1c (4.0-6.0) % Alkaline Phosphatase 136 H (38-126) U/L Troponin I (0.000-0.034) ng/mL Triglycerides (<150) mg/dL LDL Cholesterol, Calc (0-99) mg/dL HDL Cholesterol (40-60) mg/dL 01/19/20 01/19/20 01/19/20 Range/Units 16:51 17:43 17:43 APTT (22.0-30.0) sec Sodium (137-145) mmol/L Glucose (74-99) mg/dL POC Glucose (mg/dL) 173 H (75-99) mg/dL Hemoglobin A1c 11.6 H (4.0-6.0) % Alkaline Phosphatase (38-126) U/L Troponin I 9.710 H* (0.000-0.034) ng/mL Triglycerides (<150) mg/dL LDL Cholesterol, Calc (0-99) mg/dL HDL Cholesterol (40-60) mg/dL 01/19/20 01/20/20 01/20/20 Range/Units 23:56 05:44 06:14 APTT (22.0-30.0) sec Sodium (137-145) mmol/L Glucose 180 H (74-99) mg/dL POC Glucose (mg/dL) 212 H 197 H (75-99) mg/dL Hemoglobin A1c (4.0-6.0) % Alkaline Phosphatase (38-126) U/L Troponin I (0.000-0.034) ng/mL Triglycerides 223 H (<150) mg/dL LDL Cholesterol, Calc 115 H (0-99) mg/dL HDL Cholesterol 29 L (40-60) mg/dL 01/20/20 Range/Units 06:14 APTT (22.0-30.0) sec Sodium (137-145) mmol/L Glucose (74-99) mg/dL POC Glucose (mg/dL) (75-99) mg/dL Hemoglobin A1c (4.0-6.0) % Alkaline Phosphatase (38-126) U/L Troponin I 8.090 H* (0.000-0.034) ng/mL Triglycerides (<150) mg/dL LDL Cholesterol, Calc (0-99) mg/dL HDL Cholesterol (40-60) mg/dL Assessment and Plan Assessment: #ST elevation SD status post left heart catheterization which showed occluded right coronary artery with significant obstructive coronary disease involving LAD and circumflex coronary artery. Patient had PCI to the right coronary artery. Resume IV Tirofiban. Resume aspirin, high intensity statin, metoprolol, lisinopril and Plavix. Echocardiogram showed EF of 45-50% with basal inferior LV hypokinesia. Okay to transfer out of ICU. Cardiology on board. Troponins post heart catheterization are trending down. #Coronary artery disease with prior stent placement. Management as above #Hypertension: Resume current BP meds. Imdur held by cardiology. #Diabetes: Resume home insulin regimen. Check hemoglobin A1c #Hyperlipidemia: Patient on high intensity statin Disposition: Awaiting for cardiology to clear patient for discharge. Anticipate patient will be ready for discharge on 01/22/2020
[2020-01-20 11:22] VITALS: BMI 28.1
[2020-01-20 12:14] LABS: Glucose,Whole Blood 261 mg/dL (75-99)
--- NOTE | 2020-01-20 14:41 | PN ---
PROGRESS NOTE Benjamin is a 64-year-old gentleman that is admitted to the hospital with acute inferior wall myocardial infarction, underwent cardiac catheterization and angioplasty of the bois forte right coronary artery that was stented previously. He is currently on aspirin, Lipitor, Plavix, Zestril, Lopressor. His troponin was 9.7 at its highest. Patient is free of chest pain, difficulty in breathing. His left groin access site appears normal. There is no bleeding, bruit, hematoma. PHYSICAL EXAM: Heart rate is 70 beats per minute, blood pressure is 123/88, respiratory rate is 18, O2 saturation is 97% on room air. There is no jugular venous distention. Chest exam reveals good air entry bilaterally. Heart exam reveals first and second heart sounds. No gallop. No murmur. Abdomen is soft, nontender. Exam of extremities did not reveal any edema. Peripheral pulses are felt. ASSESSMENT: Acute inferior wall myocardial infarction, status post catheterization and angioplasty. PLAN: Patient is doing well. Will continue current medications. I will obtain a 2D echo on him. MMODL / IJN: [id number] /
[2020-01-20 16:57] LABS: Glucose,Whole Blood 237 mg/dL (75-99)
[2020-01-20 20:31] LABS: Glucose,Whole Blood 300 mg/dL (75-99)
[2020-01-20] MEDS: ATORVASTATIN 80 MG TAB PO SCH (20:37)
[2020-01-20] MEDS: INSULIN DETEMIR (LEVEMIR) 100 UNIT/ML SYR SQ SCH (20:37)
[2020-01-21] MEDS: INSULIN ASPART (NovoLOG) 100 UNIT/ML VIAL SQ SCH ×7 (06:49→20:41)
[2020-01-21 07:18] LABS: Glucose,Whole Blood 191 mg/dL (75-99)
[2020-01-21] MEDS ORDERED: traMADol 50 MG TAB PO PRN (07:30)
[2020-01-21] MEDS: METOPROLOL TARTRATE 12.5 MG TAB PO SCH ×2 (08:23→20:41)
[2020-01-21] MEDS: ASPIRIN 81 MG PO SCH (08:23)
[2020-01-21] MEDS: lisinopriL 10 MG TAB PO SCH (08:23)
[2020-01-21] MEDS: CLOPIDOGREL 75 MG TAB PO SCH (08:23)
[2020-01-21 11:19] LABS: Glucose,Whole Blood 156 mg/dL (75-99)
--- NOTE | 2020-01-21 11:42 | P.PN ---
Subjective Progress Note Date: 01/21/20 (delayed charting seen at 0830) Principal diagnosis: chest pain Patient is a 4-year-old male with diabetes, hypertension, and prior myocardial infarction who presented to the emergency department secondary to severe midsternal chest pain with heaviness. He subsequently was found to have an inferior wall ST segment elevated myocardial infarction. He was immediately taken to the production laborer for left heart cath which demonstrated an occluded right coronary artery which was subsequently sent did. He was also noted that patient had occlusion of the PDA but this was filled with collaterals. Patient was admitted to the ICU after the procedure. He was started on aspirin, Plavix, Lipitor. He was noted to have a hemoglobin A1c of 11.6. Cholesterol profile showed an LDL of 115. He underwent an echocardiogram which showed an ejection fraction of 45-50% basal inferior left ventricle hypokinesis. Patient seen and examined at bedside. He denies any chest pain shortness mk ath, nausea, vomiting. He states he walked around the [place] 3 times yesterday. A long discussion regarding his insulin that he needs to get his A1c less than 11.9 or he will be at risks for continued heart attacks, possible stroke/renal failure/eye disease/amputations. He states his discharge from medical community secondary to complication from the procedure in the past. He believes that metformin caused him to get dehydrated have weight loss, using Lipitor prior been having have blood sugar of 1400. He also believes that his sugars are elevated secondary to chronic stress. We discussed the importance of using enough insulin to combat his sugars do not think had not stay at the level they currently are at he'll continue to have the aforementioned complications. General: Nontoxic, no distress, appears at stated age Derm: warm, dry Head: atraumatic, normocephalic, symmetric Eyes: EOMI, no lid lag, anicteric sclera Mouth: no lip lesion, mucus membranes moist Cardiovascular: S1S2 reg, no murmur, positive posterior tibial pulse bilateral, Lungs: CTA bilateral, no rhonchi, no rales , no accessory muscle use Abdominal: soft, nontender to palpation, no guarding, no appreciable org anomegaly Ext: no gross muscle atrophy, no edema, no contractures Neuro: CN II-XI grossly intact, no focal neuro deficits Psych: Alert, oriented, appropriate affect ST segment elevated myocardial infarction status post PCI to the RCA -Aspirin, Plavix, Lipitor -Telemetry -Cardiac recommendations Ischemic cardiomyopathy with ejection fraction 45-50% -Lisinopril -Metoprolol Dyslipidemia -Statin therapy Diabetes mellitus type 2 insulin requiring with hyperglycemia -A1c 11.9 -Increase Levemir to 42 units at night and 7 units with meals along with sliding scale -Diabetic education referral -Patient has already met with dietitian - recent epiosde of DKA with blood sugars greater than 600 DVT prophylaxis: early ambulation Discussed with: patient, nursing, agricultural extension educator Anticipated discharge: in AM Anticipated discharge place: home A total of 35 minutes was spent on the care of this complex patient more than 50% of the time was spent in counseling and care coordination. Objective - Vital Signs Vital signs: Vital Signs Temp 97.1 F L 01/21/20 08:00 Pulse 66 01/21/20 08:00 Resp 14 01/21/20 08:00 BP 109/58 01/21/20 08:00 Pulse Ox 92 L 01/21/20 04:00 Intake & Output 01/20/20 01/21/20 01/21/20 18:59 06:59 18:59 Intake Total 275 300 Output Total 1100 400 Balance 275 -1100 -100 Weight 89 kg Intake: IV 75 Sodium Chloride 0.9% 1, 75 000 ml @ 75 mls/hr IV . [id number] [facility] Rx#:[id number] Oral 200 300 Output: Urine 1100 400 Other: Voiding Method Toilet Urinal # Voids 1 - Labs CBC & Chem 7: 01/20/20 06:14 01/20/20 06:14 Labs: Abnormal Lab Results - Last 24 Hours (Table) 01/20/20 01/20/20 01/20/20 Range/Units 12:12 16:54 20:29 POC Glucose (mg/dL) 261 H 237 H 300 H (75-99) mg/dL 01/21/20 01/21/20 Range/Units 06:43 11:18 POC Glucose (mg/dL) 191 H 156 H (75-99) mg/dL
--- NOTE | 2020-01-21 12:01 | PN ---
PROGRESS NOTE Benjamin is a 64-year-old gentleman who was admitted to hospital with acute inferior wall myocardial infarction, underwent cardiac catheterization and angioplasty of right coronary artery. His ejection fraction is 45%-50% with hypokinesis involving inferior wall. This morning patient is doing well and is free of symptoms. He had an episode of palpitations last night, but the monitor did not show any cardiac arrhythmia. PHYSICAL EXAM: Heart rate is 66, blood pressure is 110/58, respiratory rate is 18, O2 saturation is normal. Chest exam reveals good air entry bilaterally. Heart exam reveals first and second heart sounds. No gallop. Exam of extremities did not reveal any edema. Peripheral pulses are felt. LABS: Show that the LDL cholesterol is 113, hemoglobin is 15.2, platelet count is 235. Current medications include aspirin, Lipitor, Plavix, insulin, Zestril, Lopressor. ASSESSMENT: Acute anterior wall myocardial infarction, status post catheterization and angioplasty of right coronary artery. PLAN: Patient is doing well. He will continue with current medications, home tomorrow. MMODL / IJN: [id number] /
[2020-01-21 17:52] LABS: Glucose,Whole Blood 165 mg/dL (75-99)
[2020-01-21] MEDS: ATORVASTATIN 80 MG TAB PO SCH (20:29)
[2020-01-21 20:32] LABS: Glucose,Whole Blood 204 mg/dL (75-99)
[2020-01-21] MEDS ORDERED: INSULIN DETEMIR (LEVEMIR) 100 UNIT/ML SYR SQ SCH (21:00)
[2020-01-22 05:25] VITALS: TEMP 98.1
[2020-01-22 06:53] LABS: Glucose,Whole Blood 128 mg/dL (75-99)
[2020-01-22] MEDS: INSULIN ASPART (NovoLOG) 100 UNIT/ML VIAL SQ SCH ×2 (07:21→08:00)
[2020-01-22 07:58] LABS: Glucose,Whole Blood 321 mg/dL (75-99)
[2020-01-22] MEDS: lisinopriL 10 MG TAB PO SCH (09:46)
[2020-01-22] MEDS: ASPIRIN 81 MG PO SCH (09:46)
[2020-01-22] MEDS: METOPROLOL TARTRATE 12.5 MG TAB PO SCH (09:46)
[2020-01-22] MEDS: CLOPIDOGREL 75 MG TAB PO SCH (09:46)
[2020-01-22 09:53] VITALS: BP 134/88; PULSE 81; RESP 10
--- NOTE | 2020-01-22 11:54 | PN ---
PROGRESS NOTE Benjamin is a 64-year-old gentleman who was admitted to hospital with acute inferior wall myocardial infarction underwent cardiac catheterization and angioplasty of right coronary artery. This morning, patient is doing well, free of symptoms and read to go home. He is on optimal medical therapy. The patient thinks that Lipitor increases his blood sugars. I am going to put him on simvastatin. PHYSICAL EXAM: The patient is comfortable at rest. Vital signs are stable. There is no jugular venous distention. Chest exam reveals good air entry bilaterally. Heart exam reveals first and second heart sounds. No gallop. No murmur. No rub. Abdomen is soft. Exam of extremities did not reveal any edema. Peripheral pulses are felt. LABS: Show that the hemoglobin is 15.2, platelet count is 235. The patient is currently on aspirin, Plavix, Zestril, Lopressor and will go home on simvastatin. ASSESSMENT: Acute inferior wall myocardial infarction status post catheterization and angioplasty. PLAN: Patient is doing well and he is ready to be discharged home. MMODL / IJN: [id number] /
--- NOTE | 2020-01-22 20:34 | P.DS ---
Providers Date of admission: 01/19/20 10:38 Expected date of discharge: 01/22/20 Attending physician: Gaviota Childress DO Consults: 01/19/20 11:34 Consult Physician Routine Consulting Provider: [facility] Consult Reason/Comments: Post Interventional patient Do you want consulting provider notified?: Already Contacted Primary care physician: Tomas Reyes Hospital Course: Discharge Diagnosis: ST segment elevated myocardial infarction status post PCI to the RCA Ischemic cardiomyopathy with ejection fraction 45-50% Dyslipidemia Diabetes mellitus type 2 insulin requiring with hyperglycemia and A1c 11.9 Hospital Course: Patient is a 64-year-old male with diabetes, hypertension, and prior myocardial infarction who presented to the emergency department secondary to severe midsternal chest pain with heaviness. He subsequently was found to have an inferior wall ST segment elevated myocardial infarction. He was immediately taken to the cath lab radiological technologist for left heart cath which demonstrated an occluded right coronary artery which was subsequently sent did. He was also noted that patient had occlusion of the PDA but this was filled with collaterals. Patient was admitted to the ICU after the procedure. He was started on aspirin, Plavix, Lipitor. He was noted to have a hemoglobin A1c of 11.6. Cholesterol profile showed an LDL of 115. He underwent an echocardiogram which showed an ejection fraction of 45-50% basal inferior left ventricle hypokinesis. He continued to do well after his percutaneous intervention. His medications were optimized. His blood sugars were under better control with an increase of his long-acting insulin 42 units and his fixed dose short acting insulin to 6 units. He was determined stable for discharge home. Dr. Herman's office will call him with a follow-up appointment. He is aware he should follow-up with Dr. Reyes next week for review of his blood sugars. Patient seen and examined at bedside. Denies any chest pain, shortness breath, nausea, or vomiting. Happy with how his blood sugars have improved during his hospital stay. Vital signs reviewed and stable. General: non toxic, no distress, appears at stated age Derm: warm, dry Head: atraumatic, normocephalic, symmetric Eyes: EOMI, no lid lag, anicteric sclera Mouth: no lip lesion, mucus membranes moist Cardiovascular: S1S2 reg, no murmur, positive posterior tibial pulse bilateral, Lungs: CTA bilateral, no rhonchi, no rales , no accessory muscle use Abdominal: soft, nontender to palpation, no guarding, no appreciable organomegaly Ext: no gross muscle atrophy, no edema, no contractures Neuro: CN II-XI grossly intact, no focal neuro deficits Psych: Alert, oriented, appropriate affect A total of 36 minutes of time were spent preparing this complex discharge summary . Patient Condition at Discharge: Stable Plan - Discharge Summary Discharge Rx Participant: Yes New Discharge Prescriptions: New Insulin Detemir (Levemir) [Levemir] 42 unit SQ HS syr Metoprolol Tartrate [Lopressor] 12.5 mg PO BID #60 tab INSULIN ASPART (NovoLOG) [NovoLOG (formulary)] 6 unit SQ AC-TID vial Clopidogrel [Plavix] 75 mg PO DAILY #30 tab Simvastatin [Zocor] 40 mg PO HS #30 tablet Continue Lisinopril [Prinivil] 10 mg PO HS Aspirin EC [Ecotrin Low Dose] 81 mg PO HS Multivitamin [Multivitamins Adult Gummies] 2 tab PO DAILY Discontinued Insulin Glargine,Hum.rec.anlog [Lantus Solostar] 38 unit SQ HS Isosorbide Mononitrate ER [Imdur] 30 mg PO HS INSULIN LISPRO (humaLOG) [humaLOG] 5 units SQ AC-TID Discharge Medication List Aspirin EC [Ecotrin Low Dose] 81 mg PO HS 01/19/20 [History] Lisinopril [Prinivil] 10 mg PO HS 01/19/20 [History] Multivitamin [Multivitamins Adult Gummies] 2 tab PO DAILY 01/19/20 [History] Clopidogrel [Plavix] 75 mg PO DAILY #30 tab 01/22/20 [Rx] INSULIN ASPART (NovoLOG) [NovoLOG (formulary)] 6 unit SQ AC-TID vial 01/22/20 [Rx] Insulin Detemir (Levemir) [Levemir] 42 unit SQ HS syr 01/22/20 [Rx] Metoprolol Tartrate [Lopressor] 12.5 mg PO BID #60 tab 01/22/20 [Rx] Simvastatin [Zocor] 40 mg PO HS #30 tablet 01/22/20 [Rx] Follow up Appointment(s)/Referral(s): Adam Herman MD [STAFF PHYSICIAN] - 1 Week (Handstitching [employer] Feller spoke with Dr. Herman's office and they said they will contact patient with appt date and time. ) Tomas Reyes [Primary Care Provider] - 1-2 Days ( office is currently closed. Patient informed to call and make own follow-up appt in 1-2 days. ) Patient Instructions/Handouts: *Surgery [facility] - After Heart Catheterization - Shopping Investigator Instructions, Heart Attack (DC), Mediterranean Diet (DC) Activity/Diet/Wound Care/Special Instructions: Activity: as tolerated Diet: heart healthy, carb consistent Special Instructions: check blood sugar three times daily and make a chart to bring to your appoin tment with Dr. reyes. Discharge Disposition: HOME SELF-CARE
== END 2020-01-22 11:43 | disposition home or self-care (01) | DRG 247 ==
LOC: EC 10:04 → 2SICU 10:38
PROVIDERS: ADMIT Internal Medicine; ATTEND Internal Medicine
PROC: 027034Z Dilation of Coronary Artery, One Artery with Drug-eluting Intraluminal Device, Percutaneous Approach (ICD-10-PCS; principal; 2020-01-19 12:55)
PROC: 4A023N7 Measurement of Cardiac Sampling and Pressure, Left Heart, Percutaneous Approach (ICD-10-PCS; 2020-01-19 12:55)
PROC: B2111ZZ Fluoroscopy of Multiple Coronary Arteries using Low Osmolar Contrast (ICD-10-PCS; 2020-01-19 12:55)
PROC: B2151ZZ Fluoroscopy of Left Heart using Low Osmolar Contrast (ICD-10-PCS; 2020-01-19 12:55)
DX: I21.19 ST elevation (STEMI) myocardial infarction involving other coronary artery of inferior wall (principal); T82.855A Stenosis of coronary artery stent, initial encounter; E11.65 Type 2 diabetes mellitus with hyperglycemia; Z79.4 Long term (current) use of insulin; E78.5 Hyperlipidemia, unspecified; E86.0 Dehydration; I10 Essential (primary) hypertension; I25.10 Atherosclerotic heart disease of native coronary artery without angina pectoris; I25.2 Old myocardial infarction; I25.5 Ischemic cardiomyopathy; Z79.82 Long term (current) use of aspirin; Z79.899 Other long term (current) drug therapy; Z80.9 Family history of malignant neoplasm, unspecified; Z82.49 Family history of ischemic heart disease and other diseases of the circulatory system; Z83.3 Family history of diabetes mellitus; Z90.89 Acquired absence of other organs; Z90.49 Acquired absence of other specified parts of digestive tract
CPT/HCPCS: 36415; 71045; 80048; 80053; 80061; 82550; 83036; 83690; 83735; 83880; 84484; 85025; 85347; 85379; 85610; 85730; 93005; 93306; 93458; 96374; 99291

== ENCOUNTER → 2020-04-04 | Outpatient (CLI) | payer MEDICARE ==
[2020-04-04 10:25] LABS: African American GFR (CKD) >90 (>60 ml/min/1.73 sqM); Blood Urea Nitrogen 18 mg/dL (9-20); Non-African American GFR(CKD) 81 (>60 ml/min/1.73 sqM)
--- NOTE | 2020-04-04 13:04 | CT ---
EXAMINATION TYPE: CT abdomen pelvis w con DATE OF EXAM: 04/04/2020 COMPARISON: None INDICATION: Groin pain DLP: 1083.4 mGycm, Automated exposure control for dose reduction was used. CONTRAST: 100 mL of Isovue 300. Study performed with Oral Contrast TECHNIQUE: Axial images were obtained from above the diaphragm to the pubic rami in the axial plane a t 5 mm thick sections. Reconstructed images are reviewed on the computer in the coronal plane. FINDINGS: Limited CT sections are obtained the lung bases. The lung bases are clear. Coronary artery calcification is noted. CT ABDOMEN: Liver: Normal Spleen: Normal Pancreas: Normal Adrenal glands: The adrenal glands are normal. Gallbladder: Normal Kidneys: No masses are evident. No hydronephrosis is present. There is a 1.9 cm cyst measuring 12 H [place] units posterior inferior right kidney Delayed images were obtained through the kidneys, wh ich remain unremarkable. Aorta: Vascular calcification is within the aorta. Inferior vena cava: Normal. CT PELVIS: Loops of bowel within the abdomen and pelvis are normal. There are loops of bowel which are incom pletely distended or lack oral contrast limiting their evaluation. Appendix: Not visualized. No dilated tubular structure or inflammatory changes evident. Urinary bladder: Normal. Genitourinary structures: Prostate is somewhat prominent Osseous structures: No suspicious lytic or sclerotic lesions. No suspicious inguinal hernias are identified. No inguinal adenopathy is evident. IMPRESSIONS: 1. Small right renal cyst. 2. Somewhat prominent prostate.
== END | disposition home or self-care (01) ==
LOC: RADCTMAIN 09:46
PROVIDERS: ATTEND Family Medicine
DX: N28.1 Cyst of kidney, acquired (principal); R10.31 Right lower quadrant pain
CPT/HCPCS: 82565; 84520; 74177; 36415; Q9967

== ENCOUNTER 2020-08-14 10:11 | Inpatient (IN) | payer MEDICARE ==
[2020-08-14] MEDS ORDERED: ACETAMINOPHEN TAB 500 MG TAB PO STA (10:52)
[2020-08-14] MEDS ORDERED: SODIUM CHLORIDE 0.9% 1,000 ML IV ONE ×2 (10:53→13:20)
[2020-08-14] MEDS ORDERED: PROMETHAZINE HCL 6.25 MG/5 ML CUP PO STA (10:55)
--- NOTE | 2020-08-14 11:34 | XR ---
EXAMINATION TYPE: XR chest 1V portable DATE OF EXAM: 08/14/2020 COMPARISON: 01/19/2020 INDICATION: Short of breath, fever TECHNIQUE: Single frontal view of the chest is obtained. FINDINGS: The heart size is normal. The pulmonary vasculature is normal. Minimal subsegmental infiltrate at the left base. Some minimal infiltrate may be in the right midlung . Lungs are otherwise clear. IMPRESSION: 1. There may be some minimal atelectasis in the right mid lung. 2. Mild left lower lobe infiltrate is nonspecific. Atypical pneumonia could be considered.
[2020-08-14 12:15] LABS: Basophils # (A) 0.1 k/uL (0-0.2); Basophils % (A) 0 %; Eosinophils % (A) 0 %; HCT 51.2 % (39.0-53.0); HGB 17.8 gm/dL (13.0-17.5); Lymphocytes # (A) 0.4 k/uL (1.0-4.8); Lymphocytes % (A) 3 %; MCH 30.6 pg (25.0-35.0); MCHC 34.7 g/dL (31.0-37.0); MCV 88.1 fL (80.0-100.0); Mean Platelet Volume 8.1; Monocytes # (A) 0.7 k/uL (0-1.0); Monocytes % (A) 5 %; Neutrophils # (A) 12.3 k/uL (1.3-7.7); Neutrophils % (A) 91 %; Platelet Count 268 k/uL (150-450); Poikilocytosis Slight; RBC 5.82 m/uL (4.30-5.90); RDW 13.2 % (11.5-15.5); WBC 13.5 k/uL (3.8-10.6)
--- NOTE | 2020-08-14 12:17 | ED ---
SOB HPI - General Source: patient, EMS, RN notes reviewed, old records reviewed Mode of arrival: EMS Limitations: no limitations <Alice Salas - Last Filed: 08/14/20 15:10> <Adina Duncan - Last Filed: 08/15/20 07:56> - General Chief Complaint: Shortness of Breath Stated Complaint: NIKOLE Time Seen by Provider: 08/14/20 10:21 - History of Present Illness Initial Comments: This patient's a 65-year-old female presents to the emergency department for concerns for weakness shortness of breath. He reports his was diagnosed with Covid 1 week ago. Reports is trying to fight it off at home but symptoms seem to be progressing. Patient complains of a cough, nausea, with no appetite. Patient reports history of diabetes. When Patient was having weakness and shortness of breath his family called EMS. Reportedly Patient was 89% on room air was given DuoNeb treatment by EMS. He arrived to the ER and then satting 94% on room air. (Alice Salas) - Related Data Home Medications Medication Instructions Recorded Confirmed Aspirin EC [Ecotrin Low Dose] 81 mg PO HS 01/19/20 08/14/20 Multivitamin [Multivitamins Adult 2 tab PO DAILY 01/19/20 08/14/20 Gummies] Canagliflozin [Invokana] 100 mg PO DAILY 08/14/20 08/14/20 Insulin Glargine,Hum.rec.anlog 32 unit SQ W/SUPPER 08/14/20 08/14/20 [Lantus Solostar] Insulin Glulisine [Apidra] See Protocol SQ ACHS 08/14/20 08/14/20 Metoprolol Tartrate [Lopressor] 12.5 mg PO BID 08/14/20 08/14/20 lisinopriL 40 mg PO DAILY 08/14/20 08/14/20 Previous Rx's Medication Instructions Recorded Clopidogrel [Plavix] 75 mg PO DAILY #30 tab 01/22/20 Simvastatin [Zocor] 40 mg PO HS #30 tablet 01/22/20 Allergies Allergy/AdvReac Type Severity Reaction Status Date / Time dulaglutide [From Trulicity] AdvReac Abdominal Verified 08/14/20 12:52 Pain metformin AdvReac Diarrhea Verified 08/14/20 12:52 Review of Systems ROS Other: All systems not noted in ROS Statement are negative. <Alice Salas - Last Filed: 08/14/20 15:10> ROS Other: All systems not noted in ROS Statement are negative. <Adina Duncan - Last Filed: 08/15/20 07:56> ROS Statement: Those systems with pertinent positive or pertinent negative responses have been documented in the HPI. Past Medical History Past Medical History: Diabetes Mellitus, Hypertension, Myocardial Infarction (AR) Additional Past Medical History / Comment(s): mi x2 Last Myocardial Infarction Date:: 2013 History of Any Multi-Drug Resistant Organisms: None Reported Past Surgical History: Appendectomy, Heart Catheterization With Stent, Tonsillectomy Past Anesthesia/Blood Transfusion Reactions: No Reported Reaction Date of Last Stent Placement:: N/A Past Psychological History: No Psychological Hx Reported Smoking Status: Never smoker Past Alcohol Use History: None Reported Past Drug Use History: None Reported - Past Family History Mother Family Medical History: Cancer Additional Family Medical History / Comment(s): Mother of cancer at 63 years of age. Father Family Medical History: Diabetes Mellitus, Hypertension, Myocardial Infarction (AR) Additional Family Medical History / Comment(s): suicide <Alice Salas - Last Filed: 08/14/20 15:10> General Exam Limitations: no limitations General appearance: alert, in no apparent distress Head exam: Present: atraumatic, normocephalic, normal inspection Eye exam: Present: normal appearance, PERRL, EOMI. Absent: scleral icterus, conjunctival injection, periorbital swelling ENT exam: Present: normal exam, mucous membranes moist Neck exam: Present: normal inspection. Absent: tenderness, meningismus, lymphadenopathy Respiratory exam: Present: decreased breath sounds. Absent: normal lung sounds bilaterally, respiratory distress, wheezes, rales, rhonchi, stridor Cardiovascular Exam: Present: regular rate, normal rhythm, normal heart sounds. Absent: systolic murmur, diastolic murmur, rubs, gallop, clicks GI/Abdominal exam: Present: soft, normal bowel sounds. Absent: distended, tenderness, guarding, rebound, rigid Extremities exam: Present: normal inspection, full ROM, normal capillary refill. Absent: tenderness, pedal edema, joint swelling, calf tenderness Back exam: Present: normal inspection Neurological exam: Present: alert, oriented X3, CN II-XII intact Psychiatric exam: Present: normal affect, normal mood Skin exam: Present: warm, dry, intact, normal color. Absent: rash <Alice Salas - Last Filed: 08/14/20 15:10> - General Exam Comments Initial Comments: 65-year-old male. Patient is generally weak. (Alice Salas) Course <Alice Salas - Last Filed: 08/14/20 15:10> Vital Signs 08/14/20 08/14/20 08/14/20 10:28 10:30 10:36 Temperature 97.1 F L Pulse Rate 113 H Respiratory 22 18 22 Rate Blood Pressure 148/86 153/87 O2 Sat by Pulse 96 95 Oximetry 08/14/20 08/14/20 08/14/20 11:30 12:00 13:00 Temperature Pulse Rate 116 H 108 H 105 H Respiratory 22 22 22 Rate Blood Pressure 144/83 141/78 140/74 O2 Sat by Pulse 95 95 95 Oximetry 08/14/20 08/14/20 08/14/20 14:00 15:14 16:00 Temperature Pulse Rate 105 H 107 H 101 H Respiratory 22 22 22 Rate Blood Pressure 153/82 158/81 125/68 O2 Sat by Pulse 97 97 95 Oximetry 08/14/20 08/14/20 08/14/20 17:00 18:00 19:00 Temperature 98 F Pulse Rate 100 90 92 Respiratory 22 22 22 Rate Blood Pressure 140/83 131/75 133/73 O2 Sat by Pulse 95 95 95 Oximetry 08/14/20 08/14/20 08/14/20 20:15 21:30 22:30 Temperature 98.5 F Pulse Rate 94 89 84 Respiratory 18 18 20 Rate Blood Pressure 127/71 125/78 139/76 O2 Sat by Pulse 94 L 94 L 96 Oximetry 08/15/20 08/15/20 08/15/20 00:00 01:00 02:00 Temperature 97.8 F Pulse Rate 86 75 73 Respiratory 20 18 20 Rate Blood Pressure 135/76 132/65 110/74 O2 Sat by Pulse 95 97 96 Oximetry 08/15/20 08/15/20 08/15/20 03:00 04:00 05:00 Temperature 98.0 F Pulse Rate 75 80 78 Respiratory 20 20 20 Rate Blood Pressure 124/73 125/71 117/68 O2 Sat by Pulse 96 95 97 Oximetry 08/15/20 08/15/20 06:21 07:28 Temperature 98.4 F 97.5 F L Pulse Rate 81 84 Respiratory 20 16 Rate Blood Pressure 112/63 119/69 O2 Sat by Pulse 96 95 Oximetry - Reevaluation(s) Reevaluation #1: 08/14/20 12:52 Inserted Patient calling and stated that he started to have sharp and crushing chest pain starting 5 minutes prior to my entry into the room. Patient states it feels similar to his previous heart attacks. She states he feels like he needs a nitroglycerin tablet. Patient is given aspirin and nitro. He does report some improvement. EKG was completed at that time showing sinus tachycardia left axis deviation and right bundle branch block. Ventricular rate of 109 beats were minute. Intervals 174 ms. QRS duration is 112 ms. QT QTc is 340/457 ms. (Alice Salas) Reevaluation #2: 08/14/20 13:23 Patient reports recent episode of chest pain has completely resolved with his nitro dose. (Alice Salas) Medical Decision Making - Lab Data Result diagrams: 08/14/20 11:51 08/14/20 12:48 - Radiology Data Radiology results: report reviewed <Alice Salas - Last Filed: 08/14/20 15:10> - Lab Data Result diagrams: 08/15/20 02:24 08/15/20 02:24 <Adina Duncan - Last Filed: 08/15/20 07:56> - Medical Decision Making This is a 65-year-old male with history of diabetes and heart disease. He presents today with complaints of cough shortness of breath and weakness progressing over the past week. Patient has a history of heart disease and stenting in January. Patient was the emergency department he subsequently developed a different episode of chest or chest pain. He stated it felt similar to previous heart attacks. He was given nitro and did report relief of the symptoms at that time. His initial troponin is negative and no significant EKG changes. Patient is found to have positive Covid 19 infection. Chest x-ray showing infiltrates. With the positive d-dimer he had a computed tomography scan which shows bilateral pulmonary infiltrates, no definite PE but possible subsegmental. STarted on lovenox. Patient's lab work show that he is in DKA as well with a bicarb of less than 5. EGD is pending. Patient was given 2 L fluid bolus and started on insulin drip. I discussed the case with Dr. Liang who recommends cardiology and pulmonology nephrology consults as well as Patient will need to be admitted for ICU management due to DKA. (Alice Salas) I spoke with Dr. Vasquez who agreed to admit the patient to the ICU. Patient curr ently awaiting ICU bed. (Adina Duncan) - Lab Data Lab Results 08/14/20 08/14/20 08/14/20 Range/Units 11:51 11:51 11:51 WBC 13.5 H (3.8-10.6) k/uL RBC 5.82 (4.30-5.90) m/uL Hgb 17.8 H (13.0-17.5) gm/dL Hct 51.2 (39.0-53.0) % MCV 88.1 (80.0-100.0) fL MCH 30.6 (25.0-35.0) pg MCHC 34.7 (31.0-37.0) g/dL RDW 13.2 (11.5-15.5) % Plt Count 268 (150-450) k/uL MPV 8.1 Neutrophils % 91 % Lymphocytes % 3 % Monocytes % 5 % Eosinophils % 0 % Basophils % 0 % Neutrophils # 12.3 H (1.3-7.7) k/uL Lymphocytes # 0.4 L (1.0-4.8) k/uL Monocytes # 0.7 (0-1.0) k/uL Eosinophils # 0.0 (0-0.7) k/uL Basophils # 0.1 (0-0.2) k/uL Poikilocytosis Slight PT 9.5 (9.0-12.0) sec INR 0.9 (<1.2) APTT 22.8 (22.0-30.0) sec D-Dimer (<0.60) mg/L FEU Sample Site ABG pH (7.35-7.45) ABG pCO2 (35-45) mmHg ABG pO2 (83-108) mmHg ABG HCO3 (21-25) mmol/L ABG Total CO2 (19-24) mmol/L ABG O2 Saturation (94-97) % ABG Base Excess mmol/L Dayday Test FiO2 % Sodium (137-145) mmol/L Potassium (3.5-5.1) mmol/L Chloride (98-107) mmol/L Carbon Dioxide (22-30) mmol/L Anion Gap mmol/L BUN (9-20) mg/dL Creatinine (0.66-1.25) mg/dL Est GFR (CKD-EPI)AfAm (>60 ml/min/1.73 sqM) Est GFR (CKD-EPI)NonAf (>60 ml/min/1.73 sqM) Glucose (74-99) mg/dL POC Glucose (mg/dL) (75-99) mg/dL POC Glu Discharge Rn ID Lactic Ac Sepsis Rflx Plasma Lactic Acid Aris 2.2 H* (0.7-2.0) mmol/L Calcium (8.4-10.2) mg/dL Magnesium (1.6-2.3) mg/dL Ferritin (22.0-322.0) ng/mL Total Bilirubin (0.2-1.3) mg/dL AST (17-59) U/L ALT (4-49) U/L Alkaline Phosphatase (38-126) U/L Lactate Dehydrogenase (313-618) U/L Troponin I (0.000-0.034) ng/mL C-Reactive Protein (<10.0) mg/L Total Protein (6.3-8.2) g/dL Albumin (3.5-5.0) g/dL Procalcitonin (0.02-0.09) ng/mL Acetone, Qual (Negative) Coronavirus (PCR) (Not Detectd) 08/14/20 08/14/20 08/14/20 Range/Units 11:51 11:51 11:51 WBC (3.8-10.6) k/uL RBC (4.30-5.90) m/uL Hgb (13.0-17.5) gm/dL Hct (39.0-53.0) % MCV (80.0-100.0) fL MCH (25.0-35.0) pg MCHC (31.0-37.0) g/dL RDW (11.5-15.5) % Plt Count (150-450) k/uL MPV Neutrophils % % Lymphocytes % % Monocytes % % Eosinophils % % Basophils % % Neutrophils # (1.3-7.7) k/uL Lymphocytes # (1.0-4.8) k/uL Monocytes # (0-1.0) k/uL Eosinophils # (0-0.7) k/uL Basophils # (0-0.2) k/uL Poikilocytosis PT (9.0-12.0) sec INR (<1.2) APTT (22.0-30.0) sec D-Dimer 0.83 H (<0.60) mg/L FEU Sample Site ABG pH (7.35-7.45) ABG pCO2 (35-45) mmHg ABG pO2 (83-108) mmHg ABG HCO3 (21-25) mmol/L ABG Total CO2 (19-24) mmol/L ABG O2 Saturation (94-97) % ABG Base Excess mmol/L Dayday Test FiO2 % Sodium (137-145) mmol/L Potassium (3.5-5.1) mmol/L Chloride (98-107) mmol/L Carbon Dioxide (22-30) mmol/L Anion Gap mmol/L BUN (9-20) mg/dL Creatinine (0.66-1.25) mg/dL Est GFR (CKD-EPI)AfAm (>60 ml/min/1.73 sqM) Est GFR (CKD-EPI)NonAf (>60 ml/min/1.73 sqM) Glucose (74-99) mg/dL POC Glucose (mg/dL) (75-99) mg/dL POC Glu Discharge Rn ID Lactic Ac Sepsis Rflx Plasma Lactic Acid Aris (0.7-2.0) mmol/L Calcium (8.4-10.2) mg/dL Magnesium (1.6-2.3) mg/dL Ferritin (22.0-322.0) ng/mL Total Bilirubin (0.2-1.3) mg/dL AST (17-59) U/L ALT (4-49) U/L Alkaline Phosphatase (38-126) U/L Lactate Dehydrogenase (313-618) U/L Troponin I (0.000-0.034) ng/mL C-Reactive Protein (<10.0) mg/L Total Protein (6.3-8.2) g/dL Albumin (3.5-5.0) g/dL Procalcitonin 0.26 H (0.02-0.09) ng/mL Acetone, Qual (Negative) Coronavirus (PCR) Detected A (Not Detectd) 08/14/20 08/14/20 08/14/20 Range/Units 12:39 12:48 12:48 WBC (3.8-10.6) k/uL RBC (4.30-5.90) m/uL Hgb (13.0-17.5) gm/dL Hct (39.0-53.0) % MCV (80.0-100.0) fL MCH (25.0-35.0) pg MCHC (31.0-37.0) g/dL RDW (11.5-15.5) % Plt Count (150-450) k/uL MPV Neutrophils % % Lymphocytes % % Monocytes % % Eosinophils % % Basophils % % Neutrophils # (1.3-7.7) k/uL Lymphocytes # (1.0-4.8) k/uL Monocytes # (0-1.0) k/uL Eosinophils # (0-0.7) k/uL Basophils # (0-0.2) k/uL Poikilocytosis PT (9.0-12.0) sec INR (<1.2) APTT (22.0-30.0) sec D-Dimer (<0.60) mg/L FEU Sample Site ABG pH (7.35-7.45) ABG pCO2 (35-45) mmHg ABG pO2 (83-108) mmHg ABG HCO3 (21-25) mmol/L ABG Total CO2 (19-24) mmol/L ABG O2 Saturation (94-97) % ABG Base Excess mmol/L Dayday Test FiO2 % Sodium 137 (137-145) mmol/L Potassium 4.4 (3.5-5.1) mmol/L Chloride 107 (98-107) mmol/L Carbon Dioxide <5 L* (22-30) mmol/L Anion Gap mmol/L BUN 28 H (9-20) mg/dL Creatinine 1.23 (0.66-1.25) mg/dL Est GFR (CKD-EPI)AfAm 70 (>60 ml/min/1.73 sqM) Est GFR (CKD-EPI)NonAf 61 (>60 ml/min/1.73 sqM) Glucose 386 H (74-99) mg/dL POC Glucose (mg/dL) (75-99) mg/dL POC Glu Discharge Rn ID Lactic Ac Sepsis Rflx Y Plasma Lactic Acid Aris (0.7-2.0) mmol/L Calcium 8.4 (8.4-10.2) mg/dL Magnesium 2.4 H (1.6-2.3) mg/dL Ferritin 3075.1 H (22.0-322.0) ng/mL Total Bilirubin 0.4 (0.2-1.3) mg/dL AST 31 (17-59) U/L ALT 26 (4-49) U/L Alkaline Phosphatase 113 (38-126) U/L Lactate Dehydrogenase 828 H (313-618) U/L Troponin I <0.012 (0.000-0.034) ng/mL C-Reactive Protein 73.5 H (<10.0) mg/L Total Protein 6.6 (6.3-8.2) g/dL Albumin 3.7 (3.5-5.0) g/dL Procalcitonin (0.02-0.09) ng/mL Acetone, Qual (Negative) Coronavirus (PCR) (Not Detectd) 08/14/20 08/14/20 08/14/20 Range/Units 12:48 14:29 14:55 WBC (3.8-10.6) k/uL RBC (4.30-5.90) m/uL Hgb (13.0-17.5) gm/dL Hct (39.0-53.0) % MCV (80.0-100.0) fL MCH (25.0-35.0) pg MCHC (31.0-37.0) g/dL RDW (11.5-15.5) % Plt Count (150-450) k/uL MPV Neutrophils % % Lymphocytes % % Monocytes % % Eosinophils % % Basophils % % Neutrophils # (1.3-7.7) k/uL Lymphocytes # (1.0-4.8) k/uL Monocytes # (0-1.0) k/uL Eosinophils # (0-0.7) k/uL Basophils # (0-0.2) k/uL Poikilocytosis PT (9.0-12.0) sec INR (<1.2) APTT (22.0-30.0) sec D-Dimer (<0.60) mg/L FEU Sample Site rrad ABG pH 7.11 L* (7.35-7.45) ABG pCO2 16 L* (35-45) mmHg ABG pO2 88 (83-108) mmHg ABG HCO3 5 L* (21-25) mmol/L ABG Total CO2 6 L (19-24) mmol/L ABG O2 Saturation 95.4 (94-97) % ABG Base Excess -24.4 mmol/L Dayday Test Yes FiO2 28 % Sodium (137-145) mmol/L Potassium (3.5-5.1) mmol/L Chloride (98-107) mmol/L Carbon Dioxide (22-30) mmol/L Anion Gap mmol/L BUN (9-20) mg/dL Creatinine (0.66-1.25) mg/dL Est GFR (CKD-EPI)AfAm (>60 ml/min/1.73 sqM) Est GFR (CKD-EPI)NonAf (>60 ml/min/1.73 sqM) Glucose (74-99) mg/dL POC Glucose (mg/dL) 387 H (75-99) mg/dL POC Glu Discharge Rn ID Roslyn Weeks Lactic Ac Sepsis Rflx Plasma Lactic Acid Aris (0.7-2.0) mmol/L Calcium (8.4-10.2) mg/dL Magnesium (1.6-2.3) mg/dL Ferritin (22.0-322.0) ng/mL Total Bilirubin (0.2-1.3) mg/dL AST (17-59) U/L ALT (4-49) U/L Alkaline Phosphatase (38-126) U/L Lactate Dehydrogenase (313-618) U/L Troponin I (0.000-0.034) ng/mL C-Reactive Protein (<10.0) mg/L Total Protein (6.3-8.2) g/dL Albumin (3.5-5.0) g/dL Procalcitonin (0.02-0.09) ng/mL Acetone, Qual Positive (Negative) Coronavirus (PCR) (Not Detectd) 08/14/20 12:28EKG performed at 1159 shows sinus tachycardia left axis deviation. Incomplete right bundle-branch block. He abnormal EKG. Ventricular rate of 112 bpm. Intervals 140 ms. QS ration is 112 ms. QT QTc is 380/518 ms. (Alice Salas) - Radiology Data Minimal atelectasis in the right midlung. Mid left lower lobe infiltrate nonspecific. Atypical pneumonia could be considered. (Alice Salas) Disposition Is patient prescribed a controlled substance at d/c from ED?: No Time of Disposition: 15:09 <Alice Salas - Last Filed: 08/14/20 15:10> <Adina Duncan - Last Filed: 08/15/20 07:56> Clinical Impression: DKA (diabetic ketoacidoses), COVID-19, Pneumonia due to COVID-19 virus, CAD (coronary artery disease), Substernal chest pain relieved by nitroglycerin Disposition: ADMITTED IP TO THIS HOSP Condition: Stable
[2020-08-14] MEDS ORDERED: ASPIRIN 325 MG TAB PO STA (12:35)
[2020-08-14] MEDS ORDERED: NITROGLYCERIN SL TABS 0.4 MG TAB SUBLINGUAL STA (12:35)
[2020-08-14 13:03] LABS: INR 0.9 (<1.2); Partial Thromboplastin Time 22.8 sec (22.0-30.0); Prothrombin Time 9.5 sec (9.0-12.0)
[2020-08-14 13:13] LABS: AST 31 U/L (17-59); African American GFR (CKD) 70 (>60 ml/min/1.73 sqM); Albumin 3.7 g/dL (3.5-5.0); Alkaline Phosphatase 113 U/L (38-126); Blood Urea Nitrogen 28 mg/dL (9-20); C Reactive Protein 73.5 mg/L (<10.0); Calcium 8.4 mg/dL (8.4-10.2); Chloride 107 mmol/L (98-107); Glucose 386 mg/dL (74-99); LDH 828 U/L (313-618); Non-African American GFR(CKD) 61 (>60 ml/min/1.73 sqM); Total Bilirubin 0.4 mg/dL (0.2-1.3); Total Protein 6.6 g/dL (6.3-8.2)
[2020-08-14 13:17] LABS: ALT 26 U/L (4-49); Magnesium 2.4 mg/dL (1.6-2.3); Potassium 4.4 mmol/L (3.5-5.1); Sodium 137 mmol/L (137-145)
[2020-08-14 13:19] LABS: Carbon Dioxide <5 mmol/L (22-30)
[2020-08-14] MEDS: SODIUM CHLORIDE 0.9% 1,000 ML IV SCH ×2 (13:46→15:23)
[2020-08-14] MEDS ORDERED: NITROGLYCERIN OINT 1 INCH/GM PACKET TOPICAL STA (14:16)
[2020-08-14] MEDS ORDERED: INSULIN REGULAR BOLUS (FROM DRIP BAG) IV ONE (14:16)
--- NOTE | 2020-08-14 14:31 | CT ---
EXAMINATION TYPE: CT chest angio for PE DATE OF EXAM: 08/14/2020 COMPARISON: Same-day radiograph. HISTORY: positive d-dimer CT DLP: 409.8 mGycm Automated exposure control for dose reduction was used. CONTRAST: CT Chest for pulmonary embolism performed with with IV Contrast, patient injected with 100 mL of Isov ue 370. Coronal, sagittal and MIPs reformats were provided and reviewed. FINDINGS: LUNGS: There are bilateral diffuse moderate patchy groundglass opacities predominantly in the mid to lower lungs. There is no pleural effusion or pneumothorax seen. The tracheobronchial tree is paten t. MEDIASTINUM: There is suboptimal enhancement of the pulmonary artery . There is no CT evidence for ce ntral pulmonary embolism. There are no greater than 1 cm hilar or mediastinal lymph nodes. No bobo cardial effusion is seen. OTHER: No additional significant abnormality is seen. IMPRESSION: Bilateral diffuse patchy groundglass opacities, concerning for atypical infection, including Covid pn eumonia. Suboptimal evaluation of the pulmonary arteries. No acute central PE. Difficult to exclude nonocclusi ve thrombus in the proximal subsegmental branches. If there is continued clinical concern, recommend repeat imaging.
[2020-08-14 14:41] LABS: Glucose,Whole Blood 387 mg/dL (75-99)
[2020-08-14] MEDS ORDERED: ALBUTEROL HFA INHALER INHALATION STA (14:47)
[2020-08-14] MEDS ORDERED: ENOXAPARIN 40 MG/0.4 ML SYRINGE SQ SCH (15:00)
[2020-08-14] MEDS ORDERED: NALOXONE 0.4 MG/ML 1 ML VIAL IV PRN ×2 (15:11→15:53)
[2020-08-14] MEDS: INSULIN REGULAR 100 UNIT in SODIUM CHLORIDE 0.9% 100 ML IV SCH (15:18)
[2020-08-14 15:36] LABS: ABG Base Excess -24.4 mmol/L; ABG Oxygen Saturation 95.4 % (94-97); ABG PO2 88 mmHg (83-108); ABG TCO2 6 mmol/L (19-24); Allen Test Performed? Yes
[2020-08-14 15:43] LABS: ABG HCO3 5 mmol/L (21-25); ABG PCO2 16 mmHg (35-45); ABG PH 7.11 (7.35-7.45)
[2020-08-14] MEDS ORDERED: Magnesium Replacement Protocol 1 EACH MISC MISCELLANE PRN (15:51)
[2020-08-14] MEDS ORDERED: Potassium Replacement Protocol 1 EACH MISC MISCELLANE PRN (15:51)
[2020-08-14] MEDS ORDERED: ACETAMINOPHEN TAB 325 MG TAB PO PRN (15:53)
[2020-08-14] MEDS ORDERED: MORPHINE SULFATE 2 MG/ML SYRINGE IV PRN (15:53)
--- NOTE | 2020-08-14 16:13 | P.HPIM ---
History of Present Illness H&P Date: 08/14/20 Chief Complaint: Chills, dyspnea, weakness 65 year old man with HTN/HLD/CAD/DM presented with chills, weakness. Patient says that starting 1 day ago he started to have chills and then started to feel immensely weak. Patient reports a positive sick contact and his has Covid. Patient has not received the vaccination at this time. Patient started to feel short of breath, his took his pulse oximeter at home and read 84% on room air. EMS was called and patient received nebulizer in Route which improved his oxygenation is 94%. Upon arrival, patient did report some chest pain which felt similar nature to his prior MIs. Reportedly, patient has had 3 myocardial infarctions, starting in 2007 with most recent one in January 2020, for which she received a Xience drug-eluting stent. Patient has been compliant with his aspirin/Plavix and metoprolol. He has also been compliant with his insulin, however, he reports that his sugars have never been under control despite outpatient titration of insulin therapy. He reports chills, weakness, chest pain. He denies fevers, nausea, vomiting, cough, palpitations, syncope, presyncope, abdominal pain, diarrhea, constipation, dysuria, dyschezia, numbness of extremities. In the emergency room, patient was hemodynamically stable and afebrile. EKG demonstrated normal sinus tachycardia with incomplete right bundle ranjit block and left axis deviation with no ischemic changes. Chest x-ray demonstrated interstitial infiltrate concerning for atypical pneumonia, consistent with Covid. Pertinent lab findings included bicarb less than 5, anion gap greater than 25, elevated glucose to 300. Patient also had positive acetone level, however, electrolytes were within normal limits. In the emergency room, patient was bolused 2 L of fluid and started on insulin drip with appropriate IV fluids. He received a nitro patch which resolved his chest pain. Hospitalist service was consulted for admission; cardiology, nephrology, pulmonology consult services have been requested. Review of Systems All Systems reviewed and pertinent positives and negatives noted in HPI, all other symptoms are negative Past Medical History Past Medical History: Diabetes Mellitus, Hypertension, Myocardial Infarction ([place]) Additional Past Medical History / Comment(s): mi x2 Last Myocardial Infarction Date:: 2013 History of Any Multi-Drug Resistant Organisms: None Reported Past Surgical History: Appendectomy, Heart Catheterization With Stent, Tonsillectomy Past Anesthesia/Blood Transfusion Reactions: No Reported Reaction Date of Last Stent Placement:: N/A Past Psychological History: No Psychological Hx Reported Smoking Status: Never smoker Past Alcohol Use History: None Reported Past Drug Use History: None Reported - Past Family History Mother Family Medical History: Cancer Additional Family Medical History / Comment(s): Mother of cancer at 63 years of age. Father Family Medical History: Diabetes Mellitus, Hypertension, Myocardial Infarction ([place]) Additional Family Medical History / Comment(s): suicide Medications and Allergies Home Medications Medication Instructions Recorded Confirmed Type Aspirin EC [Ecotrin Low Dose] 81 mg PO HS 01/19/20 08/14/20 History Multivitamin [Multivitamins Adult 2 tab PO DAILY 01/19/20 08/14/20 History Gummies] Clopidogrel [Plavix] 75 mg PO DAILY #30 tab 01/22/20 08/14/20 Rx Simvastatin [Zocor] 40 mg PO HS #30 tablet 01/22/20 08/14/20 Rx Canagliflozin [Invokana] 100 mg PO DAILY 08/14/20 08/14/20 History Insulin Glargine,Hum.rec.anlog 32 unit SQ W/SUPPER 08/14/20 08/14/20 History [Lantus Solostar] Insulin Glulisine [Apidra] See Protocol SQ ACHS 08/14/20 08/14/20 History Metoprolol Tartrate [Lopressor] 12.5 mg PO BID 08/14/20 08/14/20 History lisinopriL 40 mg PO DAILY 08/14/20 08/14/20 History Allergies Allergy/AdvReac Type Severity Reaction Status Date / Time [facility] AdvReac Abdominal Verified 08/14/20 12:52 Pain metformin AdvReac Diarrhea Verified 08/14/20 12:52 Physical Exam Osteopathic Statement: *. No significant issues noted on an osteopathic structural exam other than those noted in the History and Physical/Consult. Vitals: Vital Signs Temp Pulse Resp BP Pulse Ox 08/14/20 15:14 107 H 22 158/81 97 08/14/20 14:00 105 H 22 153/82 97 08/14/20 13:00 105 H 22 140/74 95 08/14/20 12:00 108 H 22 141/78 95 08/14/20 11:30 116 H 22 144/83 95 08/14/20 10:36 22 08/14/20 10:30 18 153/87 95 08/14/20 10:28 97.1 F L 113 H 22 148/86 96 Intake and Output 08/14/20 08/14/20 08/14/20 06:59 14:59 22:59 Other: Weight 89.811 kg Gen: awake, alert HEENT: normocephalic, atraumatic, good hearing acuity, moist mucous membranes Resp: good air exchange, breathing comfortably with no accessory muscle use, crackles in the posterior bases bilaterally, no wheezes CVS: good distal perfusion x 4, tachycardic, no appreciable murmurs GI: soft, NTTP, ND, appropriate bowel sounds : no SPT, no CVAT, pena catheter not present MSK: no pitting edema, no clubbing Neuro: non-focal, moving all extremities Psych: cooperative, euthymic mood Results CBC & Chem 7: 08/14/20 11:51 08/14/20 12:48 Labs: Abnormal Lab Results - Last 24 Hours (Table) 08/14/20 08/14/20 08/14/20 Range/Units 11:51 11:51 11:51 WBC 13.5 H (3.8-10.6) k/uL Hgb 17.8 H (13.0-17.5) gm/dL Neutrophils # 12.3 H (1.3-7.7) k/uL Lymphocytes # 0.4 L (1.0-4.8) k/uL D-Dimer (<0.60) mg/L FEU ABG pH (7.35-7.45) ABG pCO2 (35-45) mmHg ABG HCO3 (21-25) mmol/L ABG Total CO2 (19-24) mmol/L Carbon Dioxide (22-30) mmol/L BUN (9-20) mg/dL Glucose (74-99) mg/dL POC Glucose (mg/dL) (75-99) mg/dL Plasma Lactic Acid Aris 2.2 H* (0.7-2.0) mmol/L Magnesium (1.6-2.3) mg/dL Lactate Dehydrogenase (313-618) U/L C-Reactive Protein (<10.0) mg/L U Random Total Protein (<12) mg/dL Coronavirus (PCR) Detected A (Not Detectd) 08/14/20 08/14/20 08/14/20 Range/Units 11:51 12:48 14:29 WBC (3.8-10.6) k/uL Hgb (13.0-17.5) gm/dL Neutrophils # (1.3-7.7) k/uL Lymphocytes # (1.0-4.8) k/uL D-Dimer 0.83 H (<0.60) mg/L FEU ABG pH (7.35-7.45) ABG pCO2 (35-45) mmHg ABG HCO3 (21-25) mmol/L ABG Total CO2 (19-24) mmol/L Carbon Dioxide <5 L* (22-30) mmol/L BUN 28 H (9-20) mg/dL Glucose 386 H (74-99) mg/dL POC Glucose (mg/dL) 387 H (75-99) mg/dL Plasma Lactic Acid Aris (0.7-2.0) mmol/L Magnesium 2.4 H (1.6-2.3) mg/dL Lactate Dehydrogenase 828 H (313-618) U/L C-Reactive Protein 73.5 H (<10.0) mg/L U Random Total Protein (<12) mg/dL Coronavirus (PCR) (Not Detectd) 08/14/20 08/14/20 Range/Units 14:55 15:14 WBC (3.8-10.6) k/uL Hgb (13.0-17.5) gm/dL Neutrophils # (1.3-7.7) k/uL Lymphocytes # (1.0-4.8) k/uL D-Dimer (<0.60) mg/L FEU ABG pH 7.11 L* (7.35-7.45) ABG pCO2 16 L* (35-45) mmHg ABG HCO3 5 L* (21-25) mmol/L ABG Total CO2 6 L (19-24) mmol/L Carbon Dioxide (22-30) mmol/L BUN (9-20) mg/dL Glucose (74-99) mg/dL POC Glucose (mg/dL) (75-99) mg/dL Plasma Lactic Acid Aris (0.7-2.0) mmol/L Magnesium (1.6-2.3) mg/dL Lactate Dehydrogenase (313-618) U/L C-Reactive Protein (<10.0) mg/L U Random Total Protein 139 H (<12) mg/dL Coronavirus (PCR) (Not Detectd) Assessment and Plan Assessment: Acute hypoxemic respiratory failure Covid pneumonitis -Admit to telemetry, contact/droplet precautions -Oxygen when necessary -DuoNeb nebs when necessary -Dexamethasone 6 mg IV daily -Start remdesivir -Vitamin C/D, zinc, famotidine -Pulmonology consult Diabetic ketoacidosis Type 2 diabetes mellitus, uncontrolled -IVF -BMP, Mg q4h -insulin gtt -replete K, Mg, Phos as appropriate Typical chest pain History of CAD status post PCI Hypertension Hyperlipidemia -Trend troponins -EKG/nitro when necessary -Cardiology consult -Continue home Lipitor, but increase to 40 mg -Continue aspirin/Plavix -Continue metoprolol -Continue lisinopril Patient is a full code DPOA is his DVT prophylaxis with heparin 3 times a day
[2020-08-14 16:25] LABS: Glucose,Whole Blood 344 mg/dL (75-99)
[2020-08-14 16:34] LABS: Basophils % (A) 0 %; Eosinophils % (A) 0 %; HCT 45.9 % (39.0-53.0); HGB 15.5 gm/dL (13.0-17.5); Lymphocytes # (A) 0.6 k/uL (1.0-4.8); Lymphocytes % (A) 5 %; MCH 29.7 pg (25.0-35.0); MCHC 33.8 g/dL (31.0-37.0); Mean Platelet Volume 7.3; Monocytes # (A) 0.5 k/uL (0-1.0); Monocytes % (A) 4 %; Neutrophils # (A) 12.3 k/uL (1.3-7.7); Neutrophils % (A) 90 %; Platelet Count 255 k/uL (150-450); Poikilocytosis Slight; RBC 5.22 m/uL (4.30-5.90); RDW 13.1 % (11.5-15.5); WBC 13.7 k/uL (3.8-10.6)
[2020-08-14] MEDS: ASCORBIC ACID 500 MG TAB PO SCH (16:40)
[2020-08-14] MEDS: CHOLECALCIFEROL 25 MCG (1000 IU) TABLET PO SCH (16:40)
[2020-08-14] MEDS: ZINC SULFATE 220 MG CAP PO SCH (16:40)
[2020-08-14 16:42] LABS: African American GFR (CKD) 73 (>60 ml/min/1.73 sqM); Blood Urea Nitrogen 26 mg/dL (9-20); Calcium 8.1 mg/dL (8.4-10.2); Chloride 112 mmol/L (98-107); Glucose 311 mg/dL (74-99); Magnesium 2.6 mg/dL (1.6-2.3); Non-African American GFR(CKD) 64 (>60 ml/min/1.73 sqM); Phosphorus 2.5 mg/dL (2.5-4.5); Potassium 3.8 mmol/L (3.5-5.1); Sodium 141 mmol/L (137-145)
[2020-08-14 16:53] LABS: Carbon Dioxide <5 mmol/L (22-30)
[2020-08-14] MEDS ORDERED: REMDESIVIR 200 MG in SODIUM CHLORIDE 0.9% 250 ML IVPB ONE (17:00)
[2020-08-14 17:10] LABS: Appearance,Urine Clear (Clear); Bilirubin,Urine Negative (Negative); Blood,Urine Small (Negative); Color,Urine Light Yellow; Glucose,Urine (UA) 4+ (Negative); Leukocyte Esterase,Urine Negative (Negative); Mucus,Urine Rare /hpf; Nitrite,Urine Negative (Negative); PH, Urine 5.5 (5.0-8.0); Protein,Urine 2+ (Negative); RBC,Urine <1 /hpf (0-5); Specific Gravity,Urine 1.032 (1.001-1.035); Urobilinogen,Urine <2.0 mg/dL (<2.0); WBC,Urine <1 /hpf (0-5)
[2020-08-14 17:26] LABS: Glucose,Whole Blood 265 mg/dL (75-99)
[2020-08-14] MEDS ORDERED: NON FORMULARY DRUG (Insulin Glargine,Hum.Rec.Anlog [Lantus Solostar] 100 UNIT/ML Insuln.Pe SQ SCH (17:30)
[2020-08-14 17:33] LABS: Ketones,Urine 4+ (Negative)
[2020-08-14] MEDS: D5-0.45% NACL WITH KCL 20MEQ/L 1,000 ML IV SCH (17:34)
[2020-08-14 17:37] LABS: Ferritin 3075.1 ng/mL (22.0-322.0)
--- NOTE | 2020-08-14 18:02 | P.CNPUL ---
History of Present Illness Consult date: 08/14/20 Requesting physician: Miguel Liang Reason for consult: dyspnea, other Chief complaint: Muscle aches, emesis, fatigue, shortness of breath, fever. History of present illness: 65-year-old male, with history of diabetes, presents to the emergency department with complaints of aches and pains, weakness, shortness of breath, fatigue, and fever. The patient also has nausea and vomiting. The patient tells Dr. Duncan, that his was diagnosed with coronavirus one week ago. His symptoms have been present for about 10 or 11 days. Over that period of time be just gotten worse and worse during he tested positive today. He was in the emergency room, and 16. His nurse with [facility]. He was on 2 L nasal cannula, saline at 200 mL an hour, and an insulin drip at 9 units an hour. The nurse, had just on his first dose of REM. He really should not get REM, disease outside the window. I will allow this first dose, but discontinue subsequent doses. In addition to diabetes mellitus, he has a history of hypertension, myocardial infarction 2, CAD with stent placement, and a previous appendectomy. White count 13.7, hemoglobin 15.5, hematocrit 45.9, platelet count 355,000. D-dimer 0.83. Blood gases show a PaO2 of 88, pCO2 of 16, and a pH is 7.11. Bicarbonate concentration is 5. This is on 28% oxygen. Sodium 141, potassium 3.8, chlorides 112, CO2 less than 5, BUN 26, creatinine 1.18, calcium 8.1, ferritin 3075, LDH 828, and C-reactive protein 73.5, pro-calcitonin levels 0.26. Urine is positive for rare mucus small blood 4+ ketones 4+ blood, and 2+ urine. PCR for coronavirus was positive. Chest x-ray showed some minimal atelectasis at the left lung base, but the CT angiogram did show diffuse bilateral patchy groundglass opacities consistent with COVID 19 pneumonia, and there were no large central pulmonary emboli. Review of Systems REVIEW OF SYSTEMS: CONSTITUTIONAL: Fever, aches and pains, fatigue. NEUROLOGIC: [ Negative.] HEENT: [ Negative.] CARDIAC: [Negative.] PULMONARY: Shortness of breath. GI: Nausea and vomiting. : [Negative.] RHEUMATOLOGIC: [ Negative.] IMMUNOLOGIC: [ Negative.] ENDOCRINE: [Negative. ] DERMATOLOGIC: [Negative.] Past Medical History Past Medical History: Diabetes Mellitus, Hypertension, Myocardial Infarction ([place]) Additional Past Medical History / Comment(s): mi x2 Last Myocardial Infarction Date:: 2013 History of Any Multi-Drug Resistant Organisms: None Reported Past Surgical History: Appendectomy, Heart Catheterization With Stent, Tonsillectomy Past Anesthesia/Blood Transfusion Reactions: No Reported Reaction Date of Last Stent Placement:: N/A Past Psychological History: No Psychological Hx Reported Smoking Status: Never smoker Past Alcohol Use History: None Reported Past Drug Use History: None Reported - Past Family History Mother Family Medical History: Cancer Additional Family Medical History / Comment(s): Mother of cancer at 63 years of age. Father Family Medical History: Diabetes Mellitus, Hypertension, Myocardial Infarction ([place]) Additional Family Medical History / Comment(s): suicide Medications and Allergies Home Medications Medication Instructions Recorded Confirmed Type Aspirin EC [Ecotrin Low Dose] 81 mg PO HS 01/19/20 08/14/20 History Multivitamin [Multivitamins Adult 2 tab PO DAILY 01/19/20 08/14/20 History Gummies] Clopidogrel [Plavix] 75 mg PO DAILY #30 tab 01/22/20 08/14/20 Rx Simvastatin [Zocor] 40 mg PO HS #30 tablet 01/22/20 08/14/20 Rx Canagliflozin [Invokana] 100 mg PO DAILY 08/14/20 08/14/20 History Insulin Glargine,Hum.rec.anlog 32 unit SQ W/SUPPER 08/14/20 08/14/20 History [Lantus Solostar] Insulin Glulisine [Apidra] See Protocol SQ ACHS 08/14/20 08/14/20 History Metoprolol Tartrate [Lopressor] 12.5 mg PO BID 08/14/20 08/14/20 History lisinopriL 40 mg PO DAILY 08/14/20 08/14/20 History Allergies Allergy/AdvReac Type Severity Reaction Status Date / Time dulaglutide [From Trulicity] AdvReac Abdominal Verified 08/14/20 12:52 Pain metformin AdvReac Diarrhea Verified 08/14/20 12:52 Physical Exam Osteopathic Statement: *. No significant issues noted on an osteopathic structural exam other than those noted in the History and Physical/Consult. Vitals: Vital Signs Temp Pulse Resp BP Pulse Ox 08/14/20 16:00 101 H 22 125/68 95 08/14/20 15:14 107 H 22 158/81 97 08/14/20 14:00 105 H 22 153/82 97 08/14/20 13:00 105 H 22 140/74 95 08/14/20 12:00 108 H 22 141/78 95 08/14/20 11:30 116 H 22 144/83 95 08/14/20 10:36 22 08/14/20 10:30 18 153/87 95 08/14/20 10:28 97.1 F L 113 H 22 148/86 96 Intake and Output 08/14/20 08/14/20 08/14/20 06:59 14:59 22:59 Intake Total 19.200 Balance 19.200 Intake: Intake, IV Titration 19.200 Amount Insulin Regular 100 unit 19.200 In Sodium Chloride 0.9% 100 ml @ 0.1 UNITS/KG/HR 9.071 mls/hr IV .[id number] [facility] Rx#:[id number] Other: Weight 89.811 kg No acute distress, oriented 3. The patient is currently on 2 L nasal cannula. HEENT examination is grossly unremarkable. Neck supple. Full range of motion. No adenopathy thyromegaly or neck vein distention. Cardiovascular examination reveals regular rhythm rate. S1-S2 normal. No S3 or S4. No discernible murmur noted. Heart rate in the 100 bpm. Lungs reveal scattered bilateral rhonchi. No wheezes or crackles. Breath sounds equal bilaterally. Abdomen soft bowel sounds are heard. No masses or tenderness. Extremities are intact. No cyanosis clubbing or edema. Skin is without rash or lesion. Neurologic examination is brief but nonfocal. Results - Laboratory Findings CBC and BMP: 08/14/20 16:05 08/14/20 16:05 ABG ABG pH 7.11 (7.35-7.45) L* 08/14/20 14:55 ABG pCO2 16 mmHg (35-45) L* 08/14/20 14:55 ABG pO2 88 mmHg (83-108) 08/14/20 14:55 ABG O2 Saturation 95.4 % (94-97) 08/14/20 14:55 PT/INR, D-dimer PT 9.5 sec (9.0-12.0) 08/14/20 11:51 INR 0.9 (<1.2) 08/14/20 11:51 D-Dimer 0.83 mg/L FEU (<0.60) H 08/14/20 11:51 Abnormal lab findings: Abnormal Labs 08/14/20 08/14/20 08/14/20 11:51 11:51 11:51 WBC 13.5 H Hgb 17.8 H Neutrophils # 12.3 H Lymphocytes # 0.4 L D-Dimer ABG pH ABG pCO2 ABG HCO3 ABG Total CO2 Chloride Carbon Dioxide BUN Glucose POC Glucose (mg/dL) Plasma Lactic Acid Aris 2.2 H* Calcium Magnesium Ferritin Lactate Dehydrogenase C-Reactive Protein Procalcitonin 0.26 H Urine Protein Urine Glucose (UA) Urine Ketones Urine Blood Urine Mucus U Random Total Protein Coronavirus (PCR) 08/14/20 08/14/20 08/14/20 11:51 11:51 12:48 WBC Hgb Neutrophils # Lymphocytes # D-Dimer 0.83 H ABG pH ABG pCO2 ABG HCO3 ABG Total CO2 Chloride Carbon Dioxide <5 L* BUN 28 H Glucose 386 H POC Glucose (mg/dL) Plasma Lactic Acid Aris Calcium Magnesium 2.4 H Ferritin 3075.1 H Lactate Dehydrogenase 828 H C-Reactive Protein 73.5 H Procalcitonin Urine Protein Urine Glucose (UA) Urine Ketones Urine Blood Urine Mucus U Random Total Protein Coronavirus (PCR) Detected A 08/14/20 08/14/20 08/14/20 14:29 14:55 15:14 WBC Hgb Neutrophils # Lymphocytes # D-Dimer ABG pH 7.11 L* ABG pCO2 16 L* ABG HCO3 5 L* ABG Total CO2 6 L Chloride Carbon Dioxide BUN Glucose POC Glucose (mg/dL) 387 H Plasma Lactic Acid Aris Calcium Magnesium Ferritin Lactate Dehydrogenase C-Reactive Protein Procalcitonin Urine Protein Urine Glucose (UA) Urine Ketones 4+ H Urine Blood Urine Mucus U Random Total Protein Coronavirus (PCR) 08/14/20 08/14/20 08/14/20 15:14 15:14 16:05 WBC Hgb Neutrophils # Lymphocytes # D-Dimer ABG pH ABG pCO2 ABG HCO3 ABG Total CO2 Chloride 112 H Carbon Dioxide <5 L* BUN 26 H Glucose 311 H POC Glucose (mg/dL) Plasma Lactic Acid Aris Calcium 8.1 L Magnesium Ferritin Lactate Dehydrogenase C-Reactive Protein Procalcitonin Urine Protein 2+ H Urine Glucose (UA) 4+ H Urine Ketones 4+ H Urine Blood Small H Urine Mucus Rare H U Random Total Protein 139 H Coronavirus (PCR) 08/14/20 08/14/20 08/14/20 16:05 16:05 16:23 WBC 13.7 H Hgb Neutrophils # 12.3 H Lymphocytes # 0.6 L D-Dimer ABG pH ABG pCO2 ABG HCO3 ABG Total CO2 Chloride Carbon Dioxide BUN Glucose POC Glucose (mg/dL) 344 H Plasma Lactic Acid Aris Calcium Magnesium 2.6 H Ferritin Lactate Dehydrogenase C-Reactive Protein Procalcitonin Urine Protein Urine Glucose (UA) Urine Ketones Urine Blood Urine Mucus U Random Total Protein Coronavirus (PCR) 08/14/20 17:24 WBC Hgb Neutrophils # Lymphocytes # D-Dimer ABG pH ABG pCO2 ABG HCO3 ABG Total CO2 Chloride Carbon Dioxide BUN Glucose POC Glucose (mg/dL) 265 H Plasma Lactic Acid Aris Calcium Magnesium Ferritin Lactate Dehydrogenase C-Reactive Protein Procalcitonin Urine Protein Urine Glucose (UA) Urine Ketones Urine Blood Urine Mucus U Random Total Protein Coronavirus (PCR) - Diagnostic Findings Chest x-ray: image reviewed CT scan - chest: image reviewed Assessment and Plan Assessment: Acute mild/moderate hypoxemic respiratory failure secondary to COVID 19 pneumonitis/pneumonia. Acute diabetic ketoacidosis. Anion gap metabolic acidosis, secondary to DKA. Dehydration secondary to diabetic ketoacidosis and osmotic diuresis. History of hypertension. History of myocardial infarction 2, the last in 2013. Previous history of heart catheterization with stent placement. History of hyperlipidemia. Plan: Plan dated 08/14/2020. The patient tested positive for coronavirus today. His symptoms have been present for about 10 or 11 days, and so technically, he is outside the window for REM. The dose for today was restarted, but subsequent doses a my opinion should be discontinued. The patient is currently being treated for diabetic ketoacidosis, with fluids, and an insulin drip at 9 units an hour. In addition, the patient's getting vitamin C, vitamin D3, and zinc as well as Decadron, and Plavix, and subcu heparin. We will continue to follow and make additional recommendations were appropriate. The patient is currently in the ICU. I did bonita an ICU bed to the ER physician but it appears that the patient will be in the ER for some time, and his DKA may be reversed before he actually needs an ICU bed. Time with Patient: Greater than 30
[2020-08-14 18:37] LABS: Glucose,Whole Blood 244 mg/dL (75-99)
[2020-08-14 19:39] LABS: Glucose,Whole Blood 269 mg/dL (75-99)
[2020-08-14 20:07] LABS: African American GFR (CKD) >90 (>60 ml/min/1.73 sqM); Anion Gap 17 mmol/L; Blood Urea Nitrogen 25 mg/dL (9-20); Calcium 8.1 mg/dL (8.4-10.2); Carbon Dioxide 10 mmol/L (22-30); Chloride 114 mmol/L (98-107); Glucose 211 mg/dL (74-99); Non-African American GFR(CKD) 80 (>60 ml/min/1.73 sqM); Potassium 3.8 mmol/L (3.5-5.1); Sodium 141 mmol/L (137-145)
[2020-08-14 20:45] LABS: Glucose,Whole Blood 215 mg/dL (75-99)
[2020-08-14] MEDS ORDERED: ATORVASTATIN 20 MG TAB PO SCH (21:00)
[2020-08-14 21:35] LABS: Glucose,Whole Blood 178 mg/dL (75-99)
[2020-08-14 22:25] LABS: Glucose,Whole Blood 162 mg/dL (75-99)
[2020-08-14 23:25] LABS: Hemoglobin A1C 11.7 % (4.0-6.0)
[2020-08-14 23:44] LABS: Glucose,Whole Blood 165 mg/dL (75-99)
[2020-08-14] MEDS: FAMOTIDINE 20 MG TAB PO SCH (23:58)
[2020-08-14] MEDS: ATORVASTATIN 40 MG TAB PO SCH (23:58)
[2020-08-14] MEDS: ASPIRIN 81 MG PO SCH (23:58)
[2020-08-14] MEDS: METOPROLOL TARTRATE 12.5 MG TAB PO SCH (23:58)
[2020-08-15] MEDS: D5-0.45% NACL WITH KCL 20MEQ/L 1,000 ML IV SCH (00:15)
[2020-08-15 00:36] LABS: Glucose,Whole Blood 152 mg/dL (75-99)
[2020-08-15] MEDS: HEPARIN SODIUM,PORCINE/PF 5,000 UNIT/0.5 ML SYRINGE SQ SCH ×4 (00:54→23:47)
[2020-08-15 01:57] LABS: Glucose,Whole Blood 110 mg/dL (75-99)
[2020-08-15] MEDS: INSULIN REGULAR 100 UNIT in SODIUM CHLORIDE 0.9% 100 ML IV SCH ×2 (02:00→04:50)
[2020-08-15 02:43] LABS: Basophils # (A) 0.1 k/uL (0-0.2); Basophils % (A) 1 %; Eosinophils # (A) 0.1 k/uL (0-0.7); Eosinophils % (A) 1 %; HCT 40.3 % (39.0-53.0); Lymphocytes # (A) 0.5 k/uL (1.0-4.8); Lymphocytes % (A) 5 %; MCH 29.4 pg (25.0-35.0); MCHC 34.9 g/dL (31.0-37.0); MCV 84.2 fL (80.0-100.0); Mean Platelet Volume 6.9; Monocytes # (A) 0.5 k/uL (0-1.0); Monocytes % (A) 5 %; Neutrophils # (A) 9.2 k/uL (1.3-7.7); Neutrophils % (A) 88 %; Platelet Count 243 k/uL (150-450); Poikilocytosis Slight; RBC 4.78 m/uL (4.30-5.90); RDW 12.9 % (11.5-15.5); WBC 10.5 k/uL (3.8-10.6)
[2020-08-15 02:58] LABS: African American GFR (CKD) >90 (>60 ml/min/1.73 sqM); Anion Gap 9 mmol/L; Blood Urea Nitrogen 23 mg/dL (9-20); Calcium 8.2 mg/dL (8.4-10.2); Carbon Dioxide 18 mmol/L (22-30); Chloride 116 mmol/L (98-107); Glucose 112 mg/dL (74-99); Non-African American GFR(CKD) >90 (>60 ml/min/1.73 sqM); Potassium 3.3 mmol/L (3.5-5.1); Sodium 143 mmol/L (137-145)
[2020-08-15 03:00] LABS: Glucose,Whole Blood 88 mg/dL (75-99)
[2020-08-15] MEDS: SODIUM CHLORIDE 0.9% 1,000 ML IV SCH ×7 (03:13→21:05)
[2020-08-15 03:31] LABS: Magnesium 2.6 mg/dL (1.6-2.3)
[2020-08-15 04:06] LABS: Glucose,Whole Blood 106 mg/dL (75-99)
[2020-08-15] MEDS ORDERED: INSULIN DETEMIR (LEVEMIR) 100 UNIT/ML SYR SQ STA (04:32)
[2020-08-15 05:41] LABS: Glucose,Whole Blood 185 mg/dL (75-99)
[2020-08-15 06:33] LABS: Glucose,Whole Blood 205 mg/dL (75-99)
[2020-08-15] MEDS: INSULIN ASPART (NovoLOG) 100 UNIT/ML VIAL SQ SCH ×4 (07:45→21:04)
[2020-08-15 07:48] LABS: Glucose,Whole Blood 231 mg/dL (75-99)
[2020-08-15 08:22] LABS: African American GFR (CKD) >90 (>60 ml/min/1.73 sqM); Anion Gap 10 mmol/L; Blood Urea Nitrogen 22 mg/dL (9-20); Calcium 7.7 mg/dL (8.4-10.2); Carbon Dioxide 12 mmol/L (22-30); Chloride 119 mmol/L (98-107); Glucose 244 mg/dL (74-99); Non-African American GFR(CKD) >90 (>60 ml/min/1.73 sqM); Potassium 4.1 mmol/L (3.5-5.1); Sodium 141 mmol/L (137-145)
--- NOTE | 2020-08-15 08:49 | P.PN ---
Subjective Progress Note Date: 08/15/20 65-year-old male, with history of diabetes, presents to the emergency department with complaints of aches and pains, weakness, shortness of breath, fatigue, and fever. The patient also has nausea and vomiting. The patient tells Dr. Duncan, that his was diagnosed with coronavirus one week ago. His symptoms have been present for about 10 or 11 days. Over that period of time be just gotten worse and worse during he tested positive today. He was in the emergency room, and 16. His nurse with [facility]. He was on 2 L nasal cannula, saline at 200 mL an hour, and an insulin drip at 9 units an hour. The nurse, had just on his first dose of REM. He really should not get REM, disease outside the window. I will allow this first dose, but discontinue subsequent doses. In addition to diabetes mellitus, he has a history of hypertension, myocardial infarction 2, CAD with stent placement, and a previous appendectomy. White count 13.7, hemoglobin 15.5, hematocrit 45.9, platelet count 355,000. D-dimer 0.83. Blood gases show a PaO2 of 88, pCO2 of 16, and a pH is 7.11. Bicarbonate concentration is 5. This is on 28% oxygen. Sodium 141, potassium 3.8, chlorides 112, CO2 less than 5, BUN 26, creatinine 1.18, calcium 8.1, ferritin 3075, LDH 828, and C-reactive protein 73.5, pro-calcitonin levels 0.26. Urine is positive for rare mucus small blood 4+ ketones 4+ blood, and 2+ urine. PCR for coronavirus was positive. Chest x-ray showed some minimal atelectasis at the left lung base, but the CT angiogram did show diffuse bilateral patchy groundglass opacities consistent with COVID 19 pneumonia, and there were no large central pulmonary emboli. On today's evaluation of 08/15/2020 the patient is being seen in follow-up. The patient is diabetic male was 65 years of age was diagnosed with COVID 19 infection. The patient came into the emergency department after having symptoms for approximately 11 days. The patient's presented to the emergency department with severe anion gap metabolic acidosis consistent with DKA. The patient was on 2 L of oxygen by nasal cannula. Blood sugars were quite elevated and the patient was started on insulin drip for blood sugar control. He was started on steroids. He was also started on Remdesivir. Nevertheless, the pulmonary services and up stopping the medication as the patient was outside the window. The patient home to have COPD, previous stenting, hypertension and the patient d-dimer was 0.8, his blood gases showed severe metabolic acidosis with a serum bicarbonate less than 5. His CAT scan of the chest showed diffuse patchy bila teral groundglass pulmonary infiltrates consistent with Covid 19 related pneumonia. Follow-up blood work showed gradual closure of anion gap metabolic acidosis. Blood sugars under better control for now. Note that his initial blood. Was severely acidotic. The patient is currently on Decadron axillary milligrams IV every 24 hours. He remains on insulin drip. The patient is also on aspirin, Plavix, and heparin 5000 units subcu for DVT prophylaxis. IV fluids currently on D5 half-n1/2ormal saline with 20 mEq of potassium running at 1 50 mL an hour.. The most recent blood work from this morning is showing further improvement in the patient's anion gap metabolic acidosis. The serum bicarb is up to 12 and the anion gap is down to 10 and the patient has normal renal function. Glucose currently is at 244. The patient is on normal saline at the rate of 130s he is an hour. The patient is on Decadron 6mg IV 24 hours. The patient is on a combination of Invokana, and Lantus insulin on outpatient basis. Objective - Vital Signs Vital signs: Vital Signs Temp 97.5 F L 08/15/20 07:28 Pulse 84 08/15/20 07:28 Resp 16 08/15/20 07:28 BP 119/69 08/15/20 07:28 Pulse Ox 95 08/15/20 07:28 Intake & Output 08/14/20 08/15/20 08/15/20 18:59 06:59 18:59 Intake Total 31.621 69.379 Balance 31.621 69.379 Weight 89.811 kg Intake: Intake, IV Titration 31.621 69.379 Amount Insulin Regular 100 unit 31.621 69.379 In Sodium Chloride 0.9% 100 ml @ 0.1 UNITS/KG/HR 9.071 mls/hr IV .[id number] [facility] Rx#:[id number] - Exam No acute distress, oriented 3. The patient is currently on 2 L nasal cannula. HEENT examination is grossly unremarkable. Neck supple. Full range of motion. No adenopathy thyromegaly or neck vein distention. Cardiovascular examination reveals regular rhythm rate. S1-S2 normal. No S3 or S4. No discernible murmur noted. Heart rate in the 100 bpm. Lungs reveal scattered bilateral rhonchi. No wheezes or crackles. Breath sounds equal bilaterally. Abdomen soft bowel sounds are heard. No masses or tenderness. Extremities are intact. No cyanosis clubbing or edema. Skin is without rash or lesion. Neurologic examination is brief but nonfocal. - Labs CBC & Chem 7: 08/15/20 02:24 08/15/20 07:34 Labs: Abnormal Lab Results - Last 24 Hours (Table) 08/14/20 08/14/20 08/14/20 Range/Units 11:51 11:51 11:51 WBC 13.5 H (3.8-10.6) k/uL Hgb 17.8 H (13.0-17.5) gm/dL Neutrophils # 12.3 H (1.3-7.7) k/uL Lymphocytes # 0.4 L (1.0-4.8) k/uL D-Dimer (<0.60) mg/L FEU ABG pH (7.35-7.45) ABG pCO2 (35-45) mmHg ABG HCO3 (21-25) mmol/L ABG Total CO2 (19-24) mmol/L Potassium (3.5-5.1) mmol/L Chloride (98-107) mmol/L Carbon Dioxide (22-30) mmol/L BUN (9-20) mg/dL Glucose (74-99) mg/dL POC Glucose (mg/dL) (75-99) mg/dL Hemoglobin A1c (4.0-6.0) % Plasma Lactic Acid Aris 2.2 H* (0.7-2.0) mmol/L Calcium (8.4-10.2) mg/dL Magnesium (1.6-2.3) mg/dL Ferritin (22.0-322.0) ng/mL Lactate Dehydrogenase (313-618) U/L C-Reactive Protein (<10.0) mg/L Triglycerides (<150) mg/dL LDL Cholesterol, Calc (0-99) mg/dL HDL Cholesterol (40-60) mg/dL Procalcitonin 0.26 H (0.02-0.09) ng/mL Urine Protein (Negative) Urine Glucose (UA) (Negative) Urine Ketones (Negative) Urine Blood (Negative) Urine Mucus (None) /hpf U Random Total Protein (<12) mg/dL Coronavirus (PCR) (Not Detectd) 08/14/20 08/14/20 08/14/20 Range/Units 11:51 11:51 12:48 WBC (3.8-10.6) k/uL Hgb (13.0-17.5) gm/dL Neutrophils # (1.3-7.7) k/uL Lymphocytes # (1.0-4.8) k/uL D-Dimer 0.83 H (<0.60) mg/L FEU ABG pH (7.35-7.45) ABG pCO2 (35-45) mmHg ABG HCO3 (21-25) mmol/L ABG Total CO2 (19-24) mmol/L Potassium (3.5-5.1) mmol/L Chloride (98-107) mmol/L Carbon Dioxide <5 L* (22-30) mmol/L BUN 28 H (9-20) mg/dL Glucose 386 H (74-99) mg/dL POC Glucose (mg/dL) (75-99) mg/dL Hemoglobin A1c (4.0-6.0) % Plasma Lactic Acid Aris (0.7-2.0) mmol/L Calcium (8.4-10.2) mg/dL Magnesium 2.4 H (1.6-2.3) mg/dL Ferritin 3075.1 H (22.0-322.0) ng/mL Lactate Dehydrogenase 828 H (313-618) U/L C-Reactive Protein 73.5 H (<10.0) mg/L Triglycerides (<150) mg/dL LDL Cholesterol, Calc (0-99) mg/dL HDL Cholesterol (40-60) mg/dL Procalcitonin (0.02-0.09) ng/mL Urine Protein (Negative) Urine Glucose (UA) (Negative) Urine Ketones (Negative) Urine Blood (Negative) Urine Mucus (None) /hpf U Random Total Protein (<12) mg/dL Coronavirus (PCR) Detected A (Not Detectd) 08/14/20 08/14/20 08/14/20 Range/Units 14:29 14:55 15:14 WBC (3.8-10.6) k/uL Hgb (13.0-17.5) gm/dL Neutrophils # (1.3-7.7) k/uL Lymphocytes # (1.0-4.8) k/uL D-Dimer (<0.60) mg/L FEU ABG pH 7.11 L* (7.35-7.45) ABG pCO2 16 L* (35-45) mmHg ABG HCO3 5 L* (21-25) mmol/L ABG Total CO2 6 L (19-24) mmol/L Potassium (3.5-5.1) mmol/L Chloride (98-107) mmol/L Carbon Dioxide (22-30) mmol/L BUN (9-20) mg/dL Glucose (74-99) mg/dL POC Glucose (mg/dL) 387 H (75-99) mg/dL Hemoglobin A1c (4.0-6.0) % Plasma Lactic Acid Aris (0.7-2.0) mmol/L Calcium (8.4-10.2) mg/dL Magnesium (1.6-2.3) mg/dL Ferritin (22.0-322.0) ng/mL Lactate Dehydrogenase (313-618) U/L C-Reactive Protein (<10.0) mg/L Triglycerides (<150) mg/dL LDL Cholesterol, Calc (0-99) mg/dL HDL Cholesterol (40-60) mg/dL Procalcitonin (0.02-0.09) ng/mL Urine Protein (Negative) Urine Glucose (UA) (Negative) Urine Ketones 4+ H (Negative) Urine Blood (Negative) Urine Mucus (None) /hpf U Random Total Protein (<12) mg/dL Coronavirus (PCR) (Not Detectd) 08/14/20 08/14/20 08/14/20 Range/Units 15:14 15:14 16:05 WBC (3.8-10.6) k/uL Hgb (13.0-17.5) gm/dL Neutrophils # (1.3-7.7) k/uL Lymphocytes # (1.0-4.8) k/uL D-Dimer (<0.60) mg/L FEU ABG pH (7.35-7.45) ABG pCO2 (35-45) mmHg ABG HCO3 (21-25) mmol/L ABG Total CO2 (19-24) mmol/L Potassium (3.5-5.1) mmol/L Chloride 112 H (98-107) mmol/L Carbon Dioxide <5 L* (22-30) mmol/L BUN 26 H (9-20) mg/dL Glucose 311 H (74-99) mg/dL POC Glucose (mg/dL) (75-99) mg/dL Hemoglobin A1c (4.0-6.0) % Plasma Lactic Acid Aris (0.7-2.0) mmol/L Calcium 8.1 L (8.4-10.2) mg/dL Magnesium (1.6-2.3) mg/dL Ferritin (22.0-322.0) ng/mL Lactate Dehydrogenase (313-618) U/L C-Reactive Protein (<10.0) mg/L Triglycerides (<150) mg/dL LDL Cholesterol, Calc (0-99) mg/dL HDL Cholesterol (40-60) mg/dL Procalcitonin (0.02-0.09) ng/mL Urine Protein 2+ H (Negative) Urine Glucose (UA) 4+ H (Negative) Urine Ketones 4+ H (Negative) Urine Blood Small H (Negative) Urine Mucus Rare H (None) /hpf U Random Total Protein 139 H (<12) mg/dL Coronavirus (PCR) (Not Detectd) 08/14/20 08/14/20 08/14/20 Range/Units 16:05 16:05 16:05 WBC 13.7 H (3.8-10.6) k/uL Hgb (13.0-17.5) gm/dL Neutrophils # 12.3 H (1.3-7.7) k/uL Lymphocytes # 0.6 L (1.0-4.8) k/uL D-Dimer (<0.60) mg/L FEU ABG pH (7.35-7.45) ABG pCO2 (35-45) mmHg ABG HCO3 (21-25) mmol/L ABG Total CO2 (19-24) mmol/L Potassium (3.5-5.1) mmol/L Chloride (98-107) mmol/L Carbon Dioxide (22-30) mmol/L BUN (9-20) mg/dL Glucose (74-99) mg/dL POC Glucose (mg/dL) (75-99) mg/dL Hemoglobin A1c 11.7 H (4.0-6.0) % Plasma Lactic Acid Aris (0.7-2.0) mmol/L Calcium (8.4-10.2) mg/dL Magnesium 2.6 H (1.6-2.3) mg/dL Ferritin (22.0-322.0) ng/mL Lactate Dehydrogenase (313-618) U/L C-Reactive Protein (<10.0) mg/L Triglycerides (<150) mg/dL LDL Cholesterol, Calc (0-99) mg/dL HDL Cholesterol (40-60) mg/dL Procalcitonin (0.02-0.09) ng/mL Urine Protein (Negative) Urine Glucose (UA) (Negative) Urine Ketones (Negative) Urine Blood (Negative) Urine Mucus (None) /hpf U Random Total Protein (<12) mg/dL Coronavirus (PCR) (Not Detectd) 08/14/20 08/14/20 08/14/20 Range/Units 16:23 17:24 18:36 WBC (3.8-10.6) k/uL Hgb (13.0-17.5) gm/dL Neutrophils # (1.3-7.7) k/uL Lymphocytes # (1.0-4.8) k/uL D-Dimer (<0.60) mg/L FEU ABG pH (7.35-7.45) ABG pCO2 (35-45) mmHg ABG HCO3 (21-25) mmol/L ABG Total CO2 (19-24) mmol/L Potassium (3.5-5.1) mmol/L Chloride (98-107) mmol/L Carbon Dioxide (22-30) mmol/L BUN (9-20) mg/dL Glucose (74-99) mg/dL POC Glucose (mg/dL) 344 H 265 H 244 H (75-99) mg/dL Hemoglobin A1c (4.0-6.0) % Plasma Lactic Acid Aris (0.7-2.0) mmol/L Calcium (8.4-10.2) mg/dL Magnesium (1.6-2.3) mg/dL Ferritin (22.0-322.0) ng/mL Lactate Dehydrogenase (313-618) U/L C-Reactive Protein (<10.0) mg/L Triglycerides (<150) mg/dL LDL Cholesterol, Calc (0-99) mg/dL HDL Cholesterol (40-60) mg/dL Procalcitonin (0.02-0.09) ng/mL Urine Protein (Negative) Urine Glucose (UA) (Negative) Urine Ketones (Negative) Urine Blood (Negative) Urine Mucus (None) /hpf U Random Total Protein (<12) mg/dL Coronavirus (PCR) (Not Detectd) 08/14/20 08/14/20 08/14/20 Range/Units 19:20 19:38 20:44 WBC (3.8-10.6) k/uL Hgb (13.0-17.5) gm/dL Neutrophils # (1.3-7.7) k/uL Lymphocytes # (1.0-4.8) k/uL D-Dimer (<0.60) mg/L FEU ABG pH (7.35-7.45) ABG pCO2 (35-45) mmHg ABG HCO3 (21-25) mmol/L ABG Total CO2 (19-24) mmol/L Potassium (3.5-5.1) mmol/L Chloride 114 H (98-107) mmol/L Carbon Dioxide 10 L (22-30) mmol/L BUN 25 H (9-20) mg/dL Glucose 211 H (74-99) mg/dL POC Glucose (mg/dL) 269 H 215 H (75-99) mg/dL Hemoglobin A1c (4.0-6.0) % Plasma Lactic Acid Aris (0.7-2.0) mmol/L Calcium 8.1 L (8.4-10.2) mg/dL Magnesium (1.6-2.3) mg/dL Ferritin (22.0-322.0) ng/mL Lactate Dehydrogenase (313-618) U/L C-Reactive Protein (<10.0) mg/L Triglycerides (<150) mg/dL LDL Cholesterol, Calc (0-99) mg/dL HDL Cholesterol (40-60) mg/dL Procalcitonin (0.02-0.09) ng/mL Urine Protein (Negative) Urine Glucose (UA) (Negative) Urine Ketones (Negative) Urine Blood (Negative) Urine Mucus (None) /hpf U Random Total Protein (<12) mg/dL Coronavirus (PCR) (Not Detectd) 08/14/20 08/14/20 08/14/20 Range/Units 21:33 22:24 23:42 WBC (3.8-10.6) k/uL Hgb (13.0-17.5) gm/dL Neutrophils # (1.3-7.7) k/uL Lymphocytes # (1.0-4.8) k/uL D-Dimer (<0.60) mg/L FEU ABG pH (7.35-7.45) ABG pCO2 (35-45) mmHg ABG HCO3 (21-25) mmol/L ABG Total CO2 (19-24) mmol/L Potassium (3.5-5.1) mmol/L Chloride (98-107) mmol/L Carbon Dioxide (22-30) mmol/L BUN (9-20) mg/dL Glucose (74-99) mg/dL POC Glucose (mg/dL) 178 H 162 H 165 H (75-99) mg/dL Hemoglobin A1c (4.0-6.0) % Plasma Lactic Acid Aris (0.7-2.0) mmol/L Calcium (8.4-10.2) mg/dL Magnesium (1.6-2.3) mg/dL Ferritin (22.0-322.0) ng/mL Lactate Dehydrogenase (313-618) U/L C-Reactive Protein (<10.0) mg/L Triglycerides (<150) mg/dL LDL Cholesterol, Calc (0-99) mg/dL HDL Cholesterol (40-60) mg/dL Procalcitonin (0.02-0.09) ng/mL Urine Protein (Negative) Urine Glucose (UA) (Negative) Urine Ketones (Negative) Urine Blood (Negative) Urine Mucus (None) /hpf U Random Total Protein (<12) mg/dL Coronavirus (PCR) (Not Detectd) 08/15/20 08/15/20 08/15/20 Range/Units 00:34 01:55 02:24 WBC (3.8-10.6) k/uL Hgb (13.0-17.5) gm/dL Neutrophils # (1.3-7.7) k/uL Lymphocytes # (1.0-4.8) k/uL D-Dimer (<0.60) mg/L FEU ABG pH (7.35-7.45) ABG pCO2 (35-45) mmHg ABG HCO3 (21-25) mmol/L ABG Total CO2 (19-24) mmol/L Potassium 3.3 L (3.5-5.1) mmol/L Chloride 116 H (98-107) mmol/L Carbon Dioxide 18 L (22-30) mmol/L BUN 23 H (9-20) mg/dL Glucose 112 H (74-99) mg/dL POC Glucose (mg/dL) 152 H 110 H (75-99) mg/dL Hemoglobin A1c (4.0-6.0) % Plasma Lactic Acid Aris (0.7-2.0) mmol/L Calcium 8.2 L (8.4-10.2) mg/dL Magnesium (1.6-2.3) mg/dL Ferritin (22.0-322.0) ng/mL Lactate Dehydrogenase (313-618) U/L C-Reactive Protein (<10.0) mg/L Triglycerides (<150) mg/dL LDL Cholesterol, Calc (0-99) mg/dL HDL Cholesterol (40-60) mg/dL Procalcitonin (0.02-0.09) ng/mL Urine Protein (Negative) Urine Glucose (UA) (Negative) Urine Ketones (Negative) Urine Blood (Negative) Urine Mucus (None) /hpf U Random Total Protein (<12) mg/dL Coronavirus (PCR) (Not Detectd) 08/15/20 08/15/20 08/15/20 Range/Units 02:24 02:24 03:54 WBC (3.8-10.6) k/uL Hgb (13.0-17.5) gm/dL Neutrophils # 9.2 H (1.3-7.7) k/uL Lymphocytes # 0.5 L (1.0-4.8) k/uL D-Dimer (<0.60) mg/L FEU ABG pH (7.35-7.45) ABG pCO2 (35-45) mmHg ABG HCO3 (21-25) mmol/L ABG Total CO2 (19-24) mmol/L Potassium (3.5-5.1) mmol/L Chloride (98-107) mmol/L Carbon Dioxide (22-30) mmol/L BUN (9-20) mg/dL Glucose (74-99) mg/dL POC Glucose (mg/dL) 106 H (75-99) mg/dL Hemoglobin A1c (4.0-6.0) % Plasma Lactic Acid Aris (0.7-2.0) mmol/L Calcium (8.4-10.2) mg/dL Magnesium 2.6 H (1.6-2.3) mg/dL Ferritin (22.0-322.0) ng/mL Lactate Dehydrogenase (313-618) U/L C-Reactive Protein (<10.0) mg/L Triglycerides 184 H (<150) mg/dL LDL Cholesterol, Calc 111 H (0-99) mg/dL HDL Cholesterol 32 L (40-60) mg/dL Procalcitonin (0.02-0.09) ng/mL Urine Protein (Negative) Urine Glucose (UA) (Negative) Urine Ketones (Negative) Urine Blood (Negative) Urine Mucus (None) /hpf U Random Total Protein (<12) mg/dL Coronavirus (PCR) (Not Detectd) 08/15/20 08/15/20 08/15/20 Range/Units 05:38 06:31 07:32 WBC (3.8-10.6) k/uL Hgb (13.0-17.5) gm/dL Neutrophils # (1.3-7.7) k/uL Lymphocytes # (1.0-4.8) k/uL D-Dimer (<0.60) mg/L FEU ABG pH (7.35-7.45) ABG pCO2 (35-45) mmHg ABG HCO3 (21-25) mmol/L ABG Total CO2 (19-24) mmol/L Potassium (3.5-5.1) mmol/L Chloride (98-107) mmol/L Carbon Dioxide (22-30) mmol/L BUN (9-20) mg/dL Glucose (74-99) mg/dL POC Glucose (mg/dL) 185 H 205 H 231 H (75-99) mg/dL Hemoglobin A1c (4.0-6.0) % Plasma Lactic Acid Aris (0.7-2.0) mmol/L Calcium (8.4-10.2) mg/dL Magnesium (1.6-2.3) mg/dL Ferritin (22.0-322.0) ng/mL Lactate Dehydrogenase (313-618) U/L C-Reactive Protein (<10.0) mg/L Triglycerides (<150) mg/dL LDL Cholesterol, Calc (0-99) mg/dL HDL Cholesterol (40-60) mg/dL Procalcitonin (0.02-0.09) ng/mL Urine Protein (Negative) Urine Glucose (UA) (Negative) Urine Ketones (Negative) Urine Blood (Negative) Urine Mucus (None) /hpf U Random Total Protein (<12) mg/dL Coronavirus (PCR) (Not Detectd) 08/15/20 Range/Units 07:34 WBC (3.8-10.6) k/uL Hgb (13.0-17.5) gm/dL Neutrophils # (1.3-7.7) k/uL Lymphocytes # (1.0-4.8) k/uL D-Dimer (<0.60) mg/L FEU ABG pH (7.35-7.45) ABG pCO2 (35-45) mmHg ABG HCO3 (21-25) mmol/L ABG Total CO2 (19-24) mmol/L Potassium (3.5-5.1) mmol/L Chloride 119 H (98-107) mmol/L Carbon Dioxide 12 L (22-30) mmol/L BUN 22 H (9-20) mg/dL Glucose 244 H (74-99) mg/dL POC Glucose (mg/dL) (75-99) mg/dL Hemoglobin A1c (4.0-6.0) % Plasma Lactic Acid Aris (0.7-2.0) mmol/L Calcium 7.7 L (8.4-10.2) mg/dL Magnesium (1.6-2.3) mg/dL Ferritin (22.0-322.0) ng/mL Lactate Dehydrogenase (313-618) U/L C-Reactive Protein (<10.0) mg/L Triglycerides (<150) mg/dL LDL Cholesterol, Calc (0-99) mg/dL HDL Cholesterol (40-60) mg/dL Procalcitonin (0.02-0.09) ng/mL Urine Protein (Negative) Urine Glucose (UA) (Negative) Urine Ketones (Negative) Urine Blood (Negative) Urine Mucus (None) /hpf U Random Total Protein (<12) mg/dL Coronavirus (PCR) (Not Detectd) Assessment and Plan Plan: 1 Acute mild/moderate hypoxemic respiratory failure secondary to COVID 19 pneumonitis/pneumonia. The patient is currently on 2 L of oxygen by nasal cannula 2 Acute diabetic ketoacidosis. The patient came in with severe metabolic acidosis, gap is gradually closing 3 Anion gap metabolic acidosis, secondary to DKA. Anion gap is closed 4 Dehydration secondary to diabetic ketoacidosis and osmotic diuresis. The patient is was resuscitated with IV fluids 5 History of hypertension. 6 History of myocardial infarction 2, the last in 2013. Previous history of heart catheterization with stent placement. 7 History of hyperlipidemia. Plan: Continue insulin drip and monitor the anion gap Continue normal saline at the rate of 130 mL an hour Start the patient on Lantus insulin 32 units and the patient is getting diabetic diet No looks fine scale coverage Anion gap has closed Monitor electrolytes, and the patient's serum bicarbonate still low at 12 Agree on Decadron 6 L IV every 24 hours Continue aspirin and Plavix and subcu heparin for DVT prophylaxis Altered the window for REM and this was discontinued We'll continue to follow. No need for ICU transfer and the patient can be sent to a regular medical floor. We'll check another set of electrolytes and it's known time.
[2020-08-15] MEDS: CLOPIDOGREL 75 MG TAB PO SCH (08:54)
[2020-08-15] MEDS: CHOLECALCIFEROL 25 MCG (1000 IU) TABLET PO SCH (08:54)
[2020-08-15] MEDS: METOPROLOL TARTRATE 12.5 MG TAB PO SCH ×2 (08:54→21:04)
[2020-08-15] MEDS: MULTIVITAMINS, THERA 1 EACH TAB PO SCH (08:54)
[2020-08-15] MEDS: ASCORBIC ACID 500 MG TAB PO SCH (08:54)
[2020-08-15] MEDS: PANTOPRAZOLE 40 MG/10 ML VIAL IV SCH (08:54)
[2020-08-15] MEDS: ZINC SULFATE 220 MG CAP PO SCH (08:54)
[2020-08-15] MEDS: FAMOTIDINE 20 MG TAB PO SCH ×2 (08:54→21:05)
[2020-08-15] MEDS ORDERED: lisinopriL 20 MG TAB PO SCH (09:00)
[2020-08-15] MEDS ORDERED: DEXAMETHASONE SOD PHOSPHATE 10 MG/ML 1 ML VIAL IV SCH (09:00)
[2020-08-15] MEDS ORDERED: CANAGLIFLOZIN 100 MG PO SCH (09:00)
[2020-08-15] MEDS ORDERED: SODIUM BICARBONATE TAB 650 MG TAB PO SCH (11:15)
--- NOTE | 2020-08-15 11:20 | P.NPCON ---
History of Present Illness - Reason for Consult metabolic acidosis - History of Present Illness Reason for consultation: Acidosis History of present illness: Patient is a 65-year-old male seen in consultation for metabolic acidosis. Patient presented to the hospital yesterday due to generalized aches and weakness. He also had a fever at home. He did vomit prior to admission. He also tested positive for covid-19. Patient states him and his both tested positive for covid19 about a week ago. Patient was noted to be in DKA on admission. His blood sugar on admission was 386. Insulin drip was stopped earlier this morning. Most recent blood sugar was 231. He was severely acidotic with a bicarbonate level of less than 5 and subsequently improved to 18. However it's now 12 again. He is maintained on normal saline at this time. Good urine output. No hematuria. No further vomiting or diarrhea. Denies use of nonsteroidals. No history of kidney disease. GFR is at baseline. No edema. Hemodynamically stable. Currently on 2 L is cannula. Vital signs are stable. General: The patient appeared well nourished and normally developed. HEENT: Head exam is unremarkable. Neck is without jugular venous distension. LUNGS: Breath sounds decreased. HEART: Rate and Rhythm are regular. ABDOMEN: Soft, nontender. EXTREMITITES: No clubbing, cyanosis, or edema. Past Medical History Past Medical History: Diabetes Mellitus, Hypertension, Myocardial Infarction ([place]) Additional Past Medical History / Comment(s): mi x2 Last Myocardial Infarction Date:: 2013 History of Any Multi-Drug Resistant Organisms: None Reported Past Surgical History: Appendectomy, Heart Catheterization With Stent, Tonsillectomy Past Anesthesia/Blood Transfusion Reactions: No Reported Reaction Date of Last Stent Placement:: N/A Past Psychological History: No Psychological Hx Reported Smoking Status: Never smoker Past Alcohol Use History: None Reported Past Drug Use History: None Reported - Past Family History Mother Family Medical History: Cancer Additional Family Medical History / Comment(s): Mother of cancer at 63 years of age. Father Family Medical History: Diabetes Mellitus, Hypertension, Myocardial Infarction ([place]) Additional Family Medical History / Comment(s): suicide Medications and Allergies Home Medications Medication Instructions Recorded Confirmed Type Aspirin EC [Ecotrin Low Dose] 81 mg PO HS 01/19/20 08/14/20 History Multivitamin [Multivitamins Adult 2 tab PO DAILY 01/19/20 08/14/20 History Gummies] Clopidogrel [Plavix] 75 mg PO DAILY #30 tab 01/22/20 08/14/20 Rx Simvastatin [Zocor] 40 mg PO HS #30 tablet 01/22/20 08/14/20 Rx Canagliflozin [Invokana] 100 mg PO DAILY 08/14/20 08/14/20 History Insulin Glargine,Hum.rec.anlog 32 unit SQ W/SUPPER 08/14/20 08/14/20 History [Lantus Solostar] Insulin Glulisine [Apidra] See Protocol SQ ACHS 08/14/20 08/14/20 History Metoprolol Tartrate [Lopressor] 12.5 mg PO BID 08/14/20 08/14/20 History lisinopriL 40 mg PO DAILY 08/14/20 08/14/20 History Allergies Allergy/AdvReac Type Severity Reaction Status Date / Time dulaglutide [[facility] AdvReac Abdominal Verified 08/14/20 12:52 Pain metformin AdvReac Diarrhea Verified 08/14/20 12:52 Physical Exam Vitals: Vital Signs Temp Pulse Resp BP Pulse Ox 08/15/20 07:28 97.5 F L 84 16 119/69 95 08/15/20 06:21 98.4 F 81 20 112/63 96 08/15/20 05:00 78 20 117/68 97 08/15/20 04:00 80 20 125/71 95 08/15/20 03:00 98.0 F 75 20 124/73 96 08/15/20 02:00 73 20 110/74 96 08/15/20 01:00 75 18 132/65 97 08/15/20 00:00 97.8 F 86 20 135/76 95 08/14/20 22:30 84 20 139/76 96 08/14/20 21:30 89 18 125/78 94 L 08/14/20 20:15 98.5 F 94 18 127/71 94 L 08/14/20 19:00 92 22 133/73 95 08/14/20 18:00 98 F 90 22 131/75 95 08/14/20 17:00 100 22 140/83 95 08/14/20 16:00 101 H 22 125/68 95 08/14/20 15:14 107 H 22 158/81 97 04/11/21 14:00 105 H 22 153/82 97 08/14/20 13:00 105 H 22 140/74 95 08/14/20 12:00 108 H 22 141/78 95 08/14/20 11:30 116 H 22 144/83 95 Intake and Output 08/14/20 08/15/20 08/15/20 22:59 06:59 14:59 Intake Total 42.363 58.637 Balance 42.363 58.637 Intake: Intake, IV Titration 42.363 58.637 Amount Insulin Regular 100 unit 42.363 58.637 In Sodium Chloride 0.9% 100 ml @ 0.1 UNITS/KG/HR 9.071 mls/hr IV .[id number] [facility] Rx#:[id number] Results - Lab Results Most recent lab results ABG pH 7.11 (7.35-7.45) L* 08/14/20 14:55 ABG pCO2 16 mmHg (35-45) L* 08/14/20 14:55 ABG pO2 88 mmHg (83-108) 08/14/20 14:55 ABG HCO3 5 mmol/L (21-25) L* 08/14/20 14:55 ABG O2 Saturation 95.4 % (94-97) 08/14/20 14:55 Calcium 7.7 mg/dL (8.4-10.2) L 08/15/20 07:34 Phosphorus 2.5 mg/dL (2.5-4.5) 08/14/20 16:05 Magnesium 2.5 mg/dL (1.6-2.3) H 08/15/20 07:34 08/15/20 02:24 08/15/20 07:34 Assessment and Plan Plan: Assessment: 1. Metabolic acidosis. Initially high anion gap due to DKA. Now non-gap from normal saline. No diarrhea. 2. DKA. Status post insulin drip. 3. Benign hypertension. Controlled. 4. Covid-19 infection. Plan: Maintain normal saline. Tight blood sugar control. Add low dose po bicarb. Follow-up echocardiogram. Repeat BMP this evening. Thank you for the consultation. I will continue to follow this patient with you during his hospital stay.
[2020-08-15 11:21] LABS: African American GFR (CKD) >90 (>60 ml/min/1.73 sqM); Anion Gap 7 mmol/L; Blood Urea Nitrogen 23 mg/dL (9-20); Calcium 7.6 mg/dL (8.4-10.2); Carbon Dioxide 18 mmol/L (22-30); Chloride 113 mmol/L (98-107); Glucose 262 mg/dL (74-99); Non-African American GFR(CKD) >90 (>60 ml/min/1.73 sqM); Potassium 3.9 mmol/L (3.5-5.1); Sodium 138 mmol/L (137-145)
[2020-08-15 12:42] LABS: Glucose,Whole Blood 229 mg/dL (75-99)
[2020-08-15 14:25] VITALS: BMI 28.4
--- NOTE | 2020-08-15 14:33 | P.CRDCN ---
History of Present Illness Consult date: 08/15/20 History of present illness: CHIEF COMPLAINT: Chest pain HISTORY OF PRESENT ILLNESS: This is a 65-year-old male with a past medical history significant for diabetes mellitus, hypertension, hyperlipidemia, and coronary artery disease with previous stent placement. Patient follows with a Dr. Mac. We have been asked to see the patient in consultation for chest pain. Patient originally presented to the hospital due to shortness of breath. Patient is currently admitted to the hospital secondary to Covid 19 and DKA. Patient had an episode of chest pain yesterday that was relieved with Nitro. Spoke with patients nurse this morning who states the patient has been resting comfortably with no further episodes of chest discomfort. Patient is on 2 L nasal cannula with oxygen saturations greater than 92%. Blood pressure 120/71. Heart rate is in the 70s. He is afebrile. DIAGNOSTICS: EKG reveals sinus tachycardia with heart rate of 112. T-wave inversions in anterolateral leads. Left axis deviation. Incomplete right bundle branch block. Chest xray minimal atelectasis in the right midlung. Mild left lower lobe infiltrate is nonspecific. Atypical pneumonia could be considered. CTA: No acute central PE. Difficult to exclude nonocclusive thrombus in the proximal subsegmental branches. Laboratory data: WBC 10.5. Hemoglobin 14.0. Platelet count 243. D-dimer 0.83. Sodium 138. Potassium 3.9. BUN 23. Creatinine 0.84. Magnesium 2.5. Troponin negative 3. Current home cardiac medications include lisinopril 40 mg daily, metoprolol 12.5 mg twice a day, Zocor 40 mg daily, aspirin 81 mg daily, and Plavix 75 mg daily Echocardiogram completed in January 2020 revealed ejection fraction 45-50% and basal inferior LV wall hypokinesis. Patient underwent cardiac catheterization in January [address] Patel secondary to acute inferior STEMI revealing acutely occluded right coronary a rtery with significant obstructive CAD involving LAD and circumflex coronary artery. Patient underwent stenting of RCA. REVIEW OF SYSTEMS: Thorough review of systems not completed secondary to limited evaluation/examination and due to Covid19 PHYSICAL EXAM: Thorough physical exam not completed secondary to limited evaluation/examination and due to Covid19 ASSESSMENT: Shortness of breath Covid 19 Chest pain, troponin negative x 3 Coronary artery disease with multiple stenting (RCA x 2 and PDA x 1 in 2013) History of inferior STEMI with PCI to RCA, January 2020 Hypertension Hyperlipidemia Diabetes mellitus PLAN: An acute coronary event has been ruled out Resume home cardiac medications Obtain 2D echo to assess cardiac structure and function Further recommendations pending patient course Nurse practitioner note has been reviewed by physician. Signing provider agrees with the documented findings, assessment, and plan of care. Past Medical History Past Medical History: Coronary Artery Disease (CAD), Chest Pain / Angina, Diabetes Mellitus, Deep Vein Thrombosis (DVT), Hyperlipidemia, Hypertension, Myocardial Infarction ([place]) Additional Past Medical History / Comment(s): Pt tested covid + on 08/14/20. Other hx: IDDM type II, neuropathy bilateral feet, MIs x3, bronchitis, R femoral artery perforation during cardiac cath which pt states caused DVT which then travelled to his heart and since has had R leg weakness/fall. Last Myocardial Infarction Date:: 2019 History of Any Multi-Drug Resistant Organisms: None Reported Past Surgical History: Appendectomy, Heart Catheterization, Heart Catheterization With Stent, Tonsillectomy Past Anesthesia/Blood Transfusion Reactions: No Reported Reaction Date of Last Stent Placement:: 2019 Smoking Status: Never smoker - Past Family History Mother Family Medical History: Cancer Additional Family Medical History / Comment(s): Mother of cancer at 63 years of age. Father Family Medical History: Diabetes Mellitus, Hypertension, Myocardial Infarction ([place]) Additional Family Medical History / Comment(s): suicide Medications and Allergies Home Medications Medication Instructions Recorded Confirmed Type Aspirin EC [Ecotrin Low Dose] 81 mg PO HS 01/19/20 08/14/20 History Multivitamin [Multivitamins Adult 2 tab PO DAILY 01/19/20 08/14/20 History Gummies] Clopidogrel [Plavix] 75 mg PO DAILY #30 tab 01/22/20 08/14/20 Rx Simvastatin [Zocor] 40 mg PO HS #30 tablet 01/22/20 08/14/20 Rx Canagliflozin [Invokana] 100 mg PO DAILY 08/14/20 08/14/20 History Insulin Glargine,Hum.rec.anlog 32 unit SQ W/SUPPER 08/14/20 08/14/20 History [Lantus Solostar] Insulin Glulisine [Apidra] See Protocol SQ ACHS 08/14/20 08/14/20 History Metoprolol Tartrate [Lopressor] 12.5 mg PO BID 08/14/20 08/14/20 History lisinopriL 40 mg PO DAILY 08/14/20 08/14/20 History Allergies Allergy/AdvReac Type Severity Reaction Status Date / Time dulaglutide [[facility] AdvReac Abdominal Verified 08/14/20 12:52 Pain metformin AdvReac Diarrhea Verified 08/14/20 12:52 Physical Exam Vitals: Vital Signs Temp Pulse Resp BP Pulse Ox 08/15/20 12:50 97.8 F 68 18 120/71 97 08/15/20 07:28 97.5 F L 84 16 119/69 95 08/15/20 06:21 98.4 F 81 20 112/63 96 08/15/20 05:00 78 20 117/68 97 08/15/20 04:00 80 20 125/71 95 08/15/20 03:00 98.0 F 75 20 124/73 96 08/15/20 02:00 73 20 110/74 96 08/15/20 01:00 75 18 132/65 97 08/15/20 00:00 97.8 F 86 20 135/76 95 08/14/20 22:30 84 20 139/76 96 08/14/20 21:30 89 18 125/78 94 L 08/14/20 20:15 98.5 F 94 18 127/71 94 L 08/14/20 19:00 92 22 133/73 95 08/14/20 18:00 98 F 90 22 131/75 95 08/14/20 17:00 100 22 140/83 95 08/14/20 16:00 101 H 22 125/68 95 08/14/20 15:14 107 H 22 158/81 97 Intake and Output 08/14/20 08/15/20 08/15/20 22:59 06:59 14:59 Intake Total 42.363 58.637 Balance 42.363 58.637 Intake: Intake, IV Titration 42.363 58.637 Amount Insulin Regular 100 unit 42.363 58.637 In Sodium Chloride 0.9% 100 ml @ 0.1 UNITS/KG/HR 9.071 mls/hr IV .Q11H9M [facility] Rx#:[id number] Other: Weight 89.811 kg Results 08/15/20 02:24 08/15/20 10:50 Cardiac Enzymes 08/14/20 08/14/20 Range/Units 16:05 19:20 Troponin I <0.012 0.022 (0.000-0.034) ng/mL Lipids 08/15/20 Range/Units 02:24 Triglycerides 184 H (<150) mg/dL Cholesterol 180 (<200) mg/dL HDL Cholesterol 32 L (40-60) mg/dL CBC 08/14/20 08/15/20 Range/Units 16:05 02:24 WBC 13.7 H 10.5 (3.8-10.6) k/uL RBC 5.22 4.78 (4.30-5.90) m/uL Hgb 15.5 14.0 (13.0-17.5) gm/dL Hct 45.9 40.3 (39.0-53.0) % Plt Count 255 243 (150-450) k/uL Comprehensive Metabolic Panel 08/14/20 08/14/20 08/15/20 Range/Units 16:05 19:20 02:24 Sodium 141 141 143 (137-145) mmol/L Potassium 3.8 3.8 3.3 L (3.5-5.1) mmol/L Chloride 112 H 114 H 116 H (98-107) mmol/L Carbon Dioxide <5 L* 10 L 18 L (22-30) mmol/L BUN 26 H 25 H 23 H (9-20) mg/dL Creatinine 1.18 0.98 0.71 (0.66-1.25) mg/dL Glucose 311 H 211 H 112 H (74-99) mg/dL Calcium 8.1 L 8.1 L 8.2 L (8.4-10.2) mg/dL 08/15/20 08/15/20 Range/Units 07:34 10:50 Sodium 141 138 (137-145) mmol/L Potassium 4.1 3.9 (3.5-5.1) mmol/L Chloride 119 H 113 H (98-107) mmol/L Carbon Dioxide 12 L 18 L (22-30) mmol/L BUN 22 H 23 H (9-20) mg/dL Creatinine 0.73 0.84 (0.66-1.25) mg/dL Glucose 244 H 262 H (74-99) mg/dL Calcium 7.7 L 7.6 L (8.4-10.2) mg/dL Current Medications Generic Name Dose Route Start Last Admin Trade Name Freq PRN Reason Stop Dose Admin Acetaminophen 650 mg 08/14/20 15:53 Acetaminophen Tab 325 Mg Tab PO Q4HR PRN Fever and/or Mild Pain Ascorbic Acid 1,000 mg 08/14/20 16:15 08/15/20 08:54 Ascorbic Acid 500 Mg Tab PO 1,000 mg DAILY [facility] Administration Aspirin 81 mg 08/14/20 21:00 08/14/20 23:58 Aspirin 81 Mg PO 81 mg HS A[facility]RE[facility] Administration Atorvastatin Calcium 40 mg 08/14/20 21:00 08/14/20 23:58 Atorvastatin 40 Mg Tab PO 40 mg HS A[facility]RE[facility] Administration Cholecalciferol 25 mcg 08/14/20 16:15 08/15/20 08:54 Cholecalciferol 25 Mcg (1000 Iu) Tablet PO 25 mcg DAILY AUBREY Administration Clopidogrel Bisulfate 75 mg 08/15/20 09:00 08/15/20 08:54 Clopidogrel 75 Mg Tab PO 75 mg DAILY AUBREY Administration Famotidine 20 mg 08/14/20 21:00 08/15/20 08:54 Famotidine 20 Mg Tab PO 20 mg BID AUBREY Administration Heparin Sodium (Porcine) 5,000 unit 08/15/20 00:00 08/15/20 09:15 Heparin Sodium,Porcine/Pf 5,000 Unit/0.5 Ml Syringe SQ 5,000 unit Q8HR AUBREY Administration Sodium Chloride 1,000 mls @ 100 mls/hr 08/15/20 09:45 08/15/20 11:01 Saline 0.9% IV 100 mls/hr .Q10H AUBREY Administration Insulin Aspart 0 unit 08/15/20 07:30 08/15/20 12:49 Insulin Aspart (Novolog) 100 Unit/Ml Vial SQ 3 unit ACHS AUBREY Administration Protocol Insulin Detemir 32 unit 08/15/20 21:00 Insulin Detemir (Levemir) 100 Unit/Ml Syr SQ HS [facility] Metoprolol Tartrate 12.5 mg 08/14/20 21:00 08/15/20 08:54 Metoprolol Tartrate 12.5 Mg Tab PO 12.5 mg BID AUBREY Administration Miscellaneous Information 1 each 08/14/20 15:51 Magnesium Replacement Protocol 1 Each Misc MISCELLANE DAILY PRN Per Protocol Protocol Miscellaneous Information 1 each 08/14/20 15:51 Potassium Replacement Protocol 1 Each Misc MISCELLANE DAILY PRN Per Protocol Morphine Sulfate 2 mg 08/14/20 15:53 Morphine Sulfate 2 Mg/Ml Syringe IV Q2HR PRN Pain Scale 4 to 5 Multivitamins 1 each 08/15/20 09:00 08/15/20 08:54 Multivitamins, Thera 1 Each Tab PO 1 each DAILY AUBREY Administration Naloxone HCl 0.2 mg 08/14/20 15:53 Naloxone 0.4 Mg/Ml 1 Ml Vial IV Q2M PRN Opioid Reversal Pantoprazole Sodium 40 mg 08/15/20 09:00 08/15/20 08:54 Pantoprazole 40 Mg/10 Ml Vial IV 40 mg DAILY AUBREY Administration Sodium Bicarbonate 650 mg 08/15/20 21:00 Sodium Bicarbonate Tab 650 Mg Tab PO BID AUBREY Zinc Sulfate 220 mg 08/14/20 16:15 08/15/20 08:54 Zinc Sulfate 220 Mg Cap PO 220 mg DAILY AUBREY Administration Intake and Output 08/14/20 08/15/20 08/15/20 22:59 06:59 14:59 Intake Total 42.363 58.637 Balance 42.363 58.637 Intake: Intake, IV Titration 42.363 58.637 Amount Insulin Regular 100 unit 42.363 58.637 In Sodium Chloride 0.9% 100 ml @ 0.1 UNITS/KG/HR 9.071 mls/hr IV .Q11H9M [facility] Rx#:[id number] Other: Weight 89.811 kg Patient Weight 08/16/20 06:59 Weight 89.811 kg 08/15/20 02:24 08/15/20 10:50
--- NOTE | 2020-08-15 16:33 | P.PN ---
Subjective Progress Note Date: 08/15/20 Feels okay, no chest pain no abdominal pain, no nausea or vomiting Objective - Vital Signs Vital signs: Vital Signs Temp 97.8 F 08/15/20 12:50 Pulse 68 08/15/20 12:50 Resp 18 08/15/20 12:50 BP 120/71 08/15/20 12:50 Pulse Ox 97 08/15/20 12:50 Intake & Output 08/14/20 08/15/20 08/15/20 18:59 06:59 18:59 Intake Total 31.621 69.379 Balance 31.621 69.379 Weight 89.811 kg 89.811 kg Intake: Intake, IV Titration 31.621 69.379 Amount Insulin Regular 100 unit 31.621 69.379 In Sodium Chloride 0.9% 100 ml @ 0.1 UNITS/KG/HR 9.071 mls/hr IV .Q11H9M [facility] Rx#:[id number] - Exam Constitutional: No acute distress, conversant, pleasant Eyes: Anicteric sclerae, moist conjunctiva, no lid-lag, PERRLA ENMT: NC/AT,Oropharynx clear, no erythema, exudates Neck:Supple, FROM, no masses, or JVD, No carotid bruits; No thyromegaly Lungs: Clear to auscultation, Clear to percussion, Normal respiratory effort, no accessory muscle use Cardiovascular: Heart regular in rate and rhythm, No murmurs, gallops, or rubs no peripheral edema Abdominal: Soft Nontender, nom distended, no guarding, no rebound or rigidity Skin: Normal temperature, tone, texture, turgor, No induration No subcutaneous nodules Extremities:No digital cyanosis No clubbing, Pedal pulses intact and symmetrical Radial pulses intact and symmetrical Normal gait and station, No calf tenderness Psychiatric: Alert and oriented to person, place and time, Appropriate affect Intact judgement Neuro: Muscles Strength 5/5 in all 4 extremities, Sensation to light touch grossly present throughout, Cranial nerves II-XII grossly intact. No focal s ensory deficits - Labs CBC & Chem 7: 08/15/20 02:24 08/15/20 10:50 Labs: Abnormal Lab Results - Last 24 Hours (Table) 08/14/20 08/14/20 08/14/20 Range/Units 11:51 12:48 15:14 WBC (3.8-10.6) k/uL Neutrophils # (1.3-7.7) k/uL Lymphocytes # (1.0-4.8) k/uL Potassium (3.5-5.1) mmol/L Chloride (98-107) mmol/L Carbon Dioxide (22-30) mmol/L BUN (9-20) mg/dL Glucose (74-99) mg/dL POC Glucose (mg/dL) (75-99) mg/dL Hemoglobin A1c (4.0-6.0) % Calcium (8.4-10.2) mg/dL Magnesium (1.6-2.3) mg/dL Ferritin 3075.1 H (22.0-322.0) ng/mL Triglycerides (<150) mg/dL LDL Cholesterol, Calc (0-99) mg/dL HDL Cholesterol (40-60) mg/dL Procalcitonin 0.26 H (0.02-0.09) ng/mL Urine Protein 2+ H (Negative) Urine Glucose (UA) 4+ H (Negative) Urine Ketones 4+ H (Negative) Urine Blood Small H (Negative) Urine Mucus Rare H (None) /hpf 08/14/20 08/14/20 08/14/20 Range/Units 16:05 16:05 16:05 WBC 13.7 H (3.8-10.6) k/uL Neutrophils # 12.3 H (1.3-7.7) k/uL Lymphocytes # 0.6 L (1.0-4.8) k/uL Potassium (3.5-5.1) mmol/L Chloride 112 H (98-107) mmol/L Carbon Dioxide <5 L* (22-30) mmol/L BUN 26 H (9-20) mg/dL Glucose 311 H (74-99) mg/dL POC Glucose (mg/dL) (75-99) mg/dL Hemoglobin A1c (4.0-6.0) % Calcium 8.1 L (8.4-10.2) mg/dL Magnesium 2.6 H (1.6-2.3) mg/dL Ferritin (22.0-322.0) ng/mL Triglycerides (<150) mg/dL LDL Cholesterol, Calc (0-99) mg/dL HDL Cholesterol (40-60) mg/dL Procalcitonin (0.02-0.09) ng/mL Urine Protein (Negative) Urine Glucose (UA) (Negative) Urine Ketones (Negative) Urine Blood (Negative) Urine Mucus (None) /hpf 08/14/20 08/14/20 08/14/20 Range/Units 16:05 16:23 17:24 WBC (3.8-10.6) k/uL Neutrophils # (1.3-7.7) k/uL Lymphocytes # (1.0-4.8) k/uL Potassium (3.5-5.1) mmol/L Chloride (98-107) mmol/L Carbon Dioxide (22-30) mmol/L BUN (9-20) mg/dL Glucose (74-99) mg/dL POC Glucose (mg/dL) 344 H 265 H (75-99) mg/dL Hemoglobin A1c 11.7 H (4.0-6.0) % Calcium (8.4-10.2) mg/dL Magnesium (1.6-2.3) mg/dL Ferritin (22.0-322.0) ng/mL Triglycerides (<150) mg/dL LDL Cholesterol, Calc (0-99) mg/dL HDL Cholesterol (40-60) mg/dL Procalcitonin (0.02-0.09) ng/mL Urine Protein (Negative) Urine Glucose (UA) (Negative) Urine Ketones (Negative) Urine Blood (Negative) Urine Mucus (None) /hpf 08/14/20 08/14/20 08/14/20 Range/Units 18:36 19:20 19:38 WBC (3.8-10.6) k/uL Neutrophils # (1.3-7.7) k/uL Lymphocytes # (1.0-4.8) k/uL Potassium (3.5-5.1) mmol/L Chloride 114 H (98-107) mmol/L Carbon Dioxide 10 L (22-30) mmol/L BUN 25 H (9-20) mg/dL Glucose 211 H (74-99) mg/dL POC Glucose (mg/dL) 244 H 269 H (75-99) mg/dL Hemoglobin A1c (4.0-6.0) % Calcium 8.1 L (8.4-10.2) mg/dL Magnesium (1.6-2.3) mg/dL Ferritin (22.0-322.0) ng/mL Triglycerides (<150) mg/dL LDL Cholesterol, Calc (0-99) mg/dL HDL Cholesterol (40-60) mg/dL Procalcitonin (0.02-0.09) ng/mL Urine Protein (Negative) Urine Glucose (UA) (Negative) Urine Ketones (Negative) Urine Blood (Negative) Urine Mucus (None) /hpf 08/14/20 08/14/20 08/14/20 Range/Units 20:44 21:33 22:24 WBC (3.8-10.6) k/uL Neutrophils # (1.3-7.7) k/uL Lymphocytes # (1.0-4.8) k/uL Potassium (3.5-5.1) mmol/L Chloride (98-107) mmol/L Carbon Dioxide (22-30) mmol/L BUN (9-20) mg/dL Glucose (74-99) mg/dL POC Glucose (mg/dL) 215 H 178 H 162 H (75-99) mg/dL Hemoglobin A1c (4.0-6.0) % Calcium (8.4-10.2) mg/dL Magnesium (1.6-2.3) mg/dL Ferritin (22.0-322.0) ng/mL Triglycerides (<150) mg/dL LDL Cholesterol, Calc (0-99) mg/dL HDL Cholesterol (40-60) mg/dL Procalcitonin (0.02-0.09) ng/mL Urine Protein (Negative) Urine Glucose (UA) (Negative) Urine Ketones (Negative) Urine Blood (Negative) Urine Mucus (None) /hpf 08/14/20 08/15/20 08/15/20 Range/Units 23:42 00:34 01:55 WBC (3.8-10.6) k/uL Neutrophils # (1.3-7.7) k/uL Lymphocytes # (1.0-4.8) k/uL Potassium (3.5-5.1) mmol/L Chloride (98-107) mmol/L Carbon Dioxide (22-30) mmol/L BUN (9-20) mg/dL Glucose (74-99) mg/dL POC Glucose (mg/dL) 165 H 152 H 110 H (75-99) mg/dL Hemoglobin A1c (4.0-6.0) % Calcium (8.4-10.2) mg/dL Magnesium (1.6-2.3) mg/dL Ferritin (22.0-322.0) ng/mL Triglycerides (<150) mg/dL LDL Cholesterol, Calc (0-99) mg/dL HDL Cholesterol (40-60) mg/dL Procalcitonin (0.02-0.09) ng/mL Urine Protein (Negative) Urine Glucose (UA) (Negative) Urine Ketones (Negative) Urine Blood (Negative) Urine Mucus (None) /hpf 08/15/20 08/15/20 08/15/20 Range/Units 02:24 02:24 02:24 WBC (3.8-10.6) k/uL Neutrophils # 9.2 H (1.3-7.7) k/uL Lymphocytes # 0.5 L (1.0-4.8) k/uL Potassium 3.3 L (3.5-5.1) mmol/L Chloride 116 H (98-107) mmol/L Carbon Dioxide 18 L (22-30) mmol/L BUN 23 H (9-20) mg/dL Glucose 112 H (74-99) mg/dL POC Glucose (mg/dL) (75-99) mg/dL Hemoglobin A1c (4.0-6.0) % Calcium 8.2 L (8.4-10.2) mg/dL Magnesium 2.6 H (1.6-2.3) mg/dL Ferritin (22.0-322.0) ng/mL Triglycerides 184 H (<150) mg/dL LDL Cholesterol, Calc 111 H (0-99) mg/dL HDL Cholesterol 32 L (40-60) mg/dL Procalcitonin (0.02-0.09) ng/mL Urine Protein (Negative) Urine Glucose (UA) (Negative) Urine Ketones (Negative) Urine Blood (Negative) Urine Mucus (None) /hpf 08/15/20 08/15/20 08/15/20 Range/Units 03:54 05:38 06:31 WBC (3.8-10.6) k/uL Neutrophils # (1.3-7.7) k/uL Lymphocytes # (1.0-4.8) k/uL Potassium (3.5-5.1) mmol/L Chloride (98-107) mmol/L Carbon Dioxide (22-30) mmol/L BUN (9-20) mg/dL Glucose (74-99) mg/dL POC Glucose (mg/dL) 106 H 185 H 205 H (75-99) mg/dL Hemoglobin A1c (4.0-6.0) % Calcium (8.4-10.2) mg/dL Magnesium (1.6-2.3) mg/dL Ferritin (22.0-322.0) ng/mL Triglycerides (<150) mg/dL LDL Cholesterol, Calc (0-99) mg/dL HDL Cholesterol (40-60) mg/dL Procalcitonin (0.02-0.09) ng/mL Urine Protein (Negative) Urine Glucose (UA) (Negative) Urine Ketones (Negative) Urine Blood (Negative) Urine Mucus (None) /hpf 08/15/20 08/15/20 08/15/20 Range/Units 07:32 07:34 07:34 WBC (3.8-10.6) k/uL Neutrophils # (1.3-7.7) k/uL Lymphocytes # (1.0-4.8) k/uL Potassium (3.5-5.1) mmol/L Chloride 119 H (98-107) mmol/L Carbon Dioxide 12 L (22-30) mmol/L BUN 22 H (9-20) mg/dL Glucose 244 H (74-99) mg/dL POC Glucose (mg/dL) 231 H (75-99) mg/dL Hemoglobin A1c (4.0-6.0) % Calcium 7.7 L (8.4-10.2) mg/dL Magnesium 2.5 H (1.6-2.3) mg/dL Ferritin (22.0-322.0) ng/mL Triglycerides (<150) mg/dL LDL Cholesterol, Calc (0-99) mg/dL HDL Cholesterol (40-60) mg/dL Procalcitonin (0.02-0.09) ng/mL Urine Protein (Negative) Urine Glucose (UA) (Negative) Urine Ketones (Negative) Urine Blood (Negative) Urine Mucus (None) /hpf 08/15/20 08/15/20 Range/Units 10:50 12:41 WBC (3.8-10.6) k/uL Neutrophils # (1.3-7.7) k/uL Lymphocytes # (1.0-4.8) k/uL Potassium (3.5-5.1) mmol/L Chloride 113 H (98-107) mmol/L Carbon Dioxide 18 L (22-30) mmol/L BUN 23 H (9-20) mg/dL Glucose 262 H (74-99) mg/dL POC Glucose (mg/dL) 229 H (75-99) mg/dL Hemoglobin A1c (4.0-6.0) % Calcium 7.6 L (8.4-10.2) mg/dL Magnesium (1.6-2.3) mg/dL Ferritin (22.0-322.0) ng/mL Triglycerides (<150) mg/dL LDL Cholesterol, Calc (0-99) mg/dL HDL Cholesterol (40-60) mg/dL Procalcitonin (0.02-0.09) ng/mL Urine Protein (Negative) Urine Glucose (UA) (Negative) Urine Ketones (Negative) Urine Blood (Negative) Urine Mucus (None) /hpf Assessment and Plan Plan: Acute hypoxemic respiratory failure Covid pneumonitis -Oxygen when necessary -DuoNeb nebs when necessary -Dexamethasone 6 mg IV daily -Vitamin C/D, zinc, famotidine -Pulmonology consult, input appreciated Diabetic ketoacidosis Type 2 diabetes mellitus, uncontrolled -IVF -BMP, Mg q4h -insulin gtt -replete K, Mg, Phos as appropriate, monitor HCO3 12 On by mouth bicarbonate Typical chest pain History of CAD status post PCI Hypertension Hyperlipidemia -Cardiology consult -Continue home Lipitor, but increase to 40 mg -Continue aspirin/Plavix -Continue metoprolol -Continue lisinopril Negative cardiac enzymes 2-D echo pending Patient is a full code DPOA is his DVT prophylaxis with heparin 3 times a day
--- NOTE | 2020-08-15 16:50 | ECHOF ---
Referral Reason:Chest pain, LV function MEASUREMENTS -------- HEIGHT: 177.8 cm WEIGHT: 89.8 kg BP: IVSd: 1.3 cm (0.6 - 1.1) LVIDd: 4.4 cm (3.9 - 5.3) LVPWd: 1.3 cm (0.6 - 1.1) EDV(Teich): 89 ml IVSs: 1.9 cm LVIDs: 2.8 cm LVPWs: 1.5 cm %IVS Thck: 49 % ESV(Teich): 29 ml EF(Teich): 67 % %FS: 37 % SV(Teich): 60 ml LA Diam: 3.4 cm (2.7 - 3.8) RVIDd: 3.0 cm (< 3.3) Ao Diam: 3.2 cm (2.0 - 3.7) AV Cusp: 2.3 cm (1.5 - 2.6) EPSS: 0.6 cm MV E Cesar: 0.89 m/s MV DecT: 243 ms MV Dec [place]: 3.7 m/s MV A Cesar: 0.78 m/s MV E/A Ratio: 1.14 MV PHT: 71 ms AV Vmax: 1.51 m/s AV maxP.10 mmHg MV EF SLOPE: 119.26 mm/s (70 - 150) MV EXCURSION: 18.39 mm (> 18.000) FINDINGS -------- Sinus rhythm. This was a technically good study. The left ventricular size is normal. There is mild concentric left ventricular hypertrophy. Overa ll left ventricular systolic function is normal with, an EF between 60 - 65 %. The right ventricle is normal in size. The left atrium is normal in size. The right atrium is normal in size. Interatrial and interventricular septum intact. There is mild aortic valve sclerosis. The mitral valve is normal. The tricuspid valve appears structurally normal. There is no pulmonic regurgitation present. The aortic root size is normal. Normal inferior vena cava with normal inspiratory collapse consistent with estimated right atrial pre ssure of 5 mmHg. There is no pericardial effusion. CONCLUSIONS -------- 1. The left ventricular size is normal. 2. There is mild concentric left ventricular hypertrophy. 3. Overall left ventricular systolic function is normal with, an EF between 60 - 65 %. 4. There is mild aortic valve sclerosis. 5. There is no pulmonic regurgitation present. 6. There is no pericardial effusion. MEDICAL COMMUNICATION SPECIALIST: Autumn Larose RDCS
[2020-08-15 17:37] LABS: Glucose,Whole Blood 228 mg/dL (75-99)
[2020-08-15 19:22] LABS: African American GFR (CKD) >90 (>60 ml/min/1.73 sqM); Anion Gap 6 mmol/L; Blood Urea Nitrogen 22 mg/dL (9-20); Calcium 7.9 mg/dL (8.4-10.2); Carbon Dioxide 20 mmol/L (22-30); Chloride 111 mmol/L (98-107); Glucose 213 mg/dL (74-99); Non-African American GFR(CKD) >90 (>60 ml/min/1.73 sqM); Potassium 3.9 mmol/L (3.5-5.1); Sodium 137 mmol/L (137-145)
[2020-08-15 20:46] LABS: Glucose,Whole Blood 207 mg/dL (75-99)
[2020-08-15] MEDS ORDERED: INSULIN DETEMIR (LEVEMIR) 100 UNIT/ML SYR SQ SCH (21:00)
[2020-08-15] MEDS: ASPIRIN 81 MG PO SCH (21:04)
[2020-08-15] MEDS: SODIUM BICARBONATE TAB 650 MG TAB PO SCH (21:04)
[2020-08-15] MEDS: ATORVASTATIN 40 MG TAB PO SCH (21:05)
[2020-08-16] MEDS: SODIUM CHLORIDE 0.9% 1,000 ML IV SCH (05:35)
[2020-08-16 07:06] LABS: Glucose,Whole Blood 100 mg/dL (75-99)
[2020-08-16] MEDS: PANTOPRAZOLE 40 MG/10 ML VIAL IV SCH (07:51)
[2020-08-16] MEDS: ASCORBIC ACID 500 MG TAB PO SCH (07:52)
[2020-08-16] MEDS: ZINC SULFATE 220 MG CAP PO SCH (07:52)
[2020-08-16] MEDS: HEPARIN SODIUM,PORCINE/PF 5,000 UNIT/0.5 ML SYRINGE SQ SCH (07:52)
[2020-08-16] MEDS: CLOPIDOGREL 75 MG TAB PO SCH (07:53)
[2020-08-16] MEDS: MULTIVITAMINS, THERA 1 EACH TAB PO SCH (07:53)
[2020-08-16] MEDS: FAMOTIDINE 20 MG TAB PO SCH (07:53)
[2020-08-16] MEDS: CHOLECALCIFEROL 25 MCG (1000 IU) TABLET PO SCH (07:53)
[2020-08-16] MEDS: METOPROLOL TARTRATE 12.5 MG TAB PO SCH (07:53)
[2020-08-16 09:25] LABS: HCT 40.6 % (39.6-50.0); HGB 13.9 g/dL (13.0-17.0); MCHC 34.2 g/dL (32.0-37.0); MCV 84.8 fL (80.0-97.0); Mean Platelet Volume 9.9 fL (9.5-12.2); Platelet Count 256 X 10*3/uL (140-440); RBC 4.79 X 10*6/uL (4.40-5.60); RDW 13.2 % (11.5-14.5); WBC 8.46 X 10*3/uL (4.50-10.00)
[2020-08-16] MEDS: INSULIN ASPART (NovoLOG) 100 UNIT/ML VIAL SQ SCH ×2 (10:47→13:00)
[2020-08-16] MEDS: SODIUM BICARBONATE TAB 650 MG TAB PO SCH (10:48)
[2020-08-16 10:50] LABS: Basophils # (A) 0.04 X 10*3/uL (0.00-0.10); Basophils % (A) 0.5 %; Eosinophils # (A) 0.02 X 10*3/uL (0.04-0.35); Eosinophils % (A) 0.2 %; Lymphocytes # (A) 1.46 X 10*3/uL (0.90-5.00); Lymphocytes % (A) 17.3 %; Monocytes # (A) 0.39 X 10*3/uL (0.20-1.00); Monocytes % (A) 4.6 %; Neutrophils # (A) 6.42 X 10*3/uL (1.80-7.70); Neutrophils % (A) 75.9 %
--- NOTE | 2020-08-16 10:50 | P.PN ---
Subjective This is a pleasant 65-year-old male past medical history significant for diabetes mellitus, hypertension, dyslipidemia and coronary artery disease in the setting of STEMI 01/2020 with successful PCI of a totally occluded RCA. He follows with Dr. Mccurdy. He is currently being treated for COVID 19. We are following secondary to chest pain. He has had no further symptoms of chest pain. Breathing is stable. Echocardiogram obtained revealed preserved LV systolic function with EF 60-65%. Blood pressure 128/67 heart rate 74 afebrile maintaining oxygen saturation on nasal cannula. Laboratory data reviewed, CBC unremarkable. Currently maintained on aspirin 81 mg daily, atorvastatin 40 mg daily, Plavix 75 mg daily and metoprolol 12.5 mg twice a day. GENERAL: Well-appearing, well-nourished and in no acute distress. ASSESSMENT Chest pain, related to COVID. An acute event has been ruled out. COVID 19 Coronary artery disease s/p PCI Hypertension Dyslipidemia Diabetes mellitus PLAN An acute coronary event has been ruled out. Echocardiogram reveals normal LV function with no wall motion abnormalities. Continue dual anti-platelet therapy for recent PCI. We will follow along as needed, please call with further questions or concerns. Follow up with Dr. Mccurdy upon discharge. Nurse Practitioner note has been reviewed, I agree with a documented findings and plan of care. Patient was seen and examined. Objective - Vital Signs Vital signs: Vital Signs Temp 97.5 F L 08/16/20 02:20 Pulse 74 08/16/20 02:20 Resp 16 08/16/20 02:20 BP 128/67 08/16/20 02:20 Pulse Ox 94 L 08/16/20 02:20 Intake & Output 08/15/20 08/16/20 08/16/20 18:59 06:59 18:59 Intake Total 540 Balance 540 Weight 89.811 kg Intake: Oral 540 - Labs CBC & Chem 7: 08/16/20 04:51 08/15/20 18:33 Labs: Abnormal Lab Results - Last 24 Hours (Table) 08/15/20 08/15/20 08/15/20 Range/Units 10:50 12:41 17:35 Chloride 113 H (98-107) mmol/L Carbon Dioxide 18 L (22-30) mmol/L BUN 23 H (9-20) mg/dL Glucose 262 H (74-99) mg/dL POC Glucose (mg/dL) 229 H 228 H (75-99) mg/dL Calcium 7.6 L (8.4-10.2) mg/dL 08/15/20 08/15/20 08/16/20 Range/Units 18:33 20:44 07:04 Chloride 111 H (98-107) mmol/L Carbon Dioxide 20 L (22-30) mmol/L BUN 22 H (9-20) mg/dL Glucose 213 H (74-99) mg/dL POC Glucose (mg/dL) 207 H 100 H (75-99) mg/dL Calcium 7.9 L (8.4-10.2) mg/dL
--- NOTE | 2020-08-16 11:45 | P.PN ---
Subjective Patient is seen in follow for acidosis. Bicarb level 20 as of yesterday evening. He is maintained on normal saline. Blood sugars controlled. Oral intake good. No vomiting or diarrhea. Vital signs are stable. General: The patient appeared well nourished and normally developed. HEENT: Head exam is unremarkable. Neck is without jugular venous distension. LUNGS: Breath sounds decreased. HEART: Rate and Rhythm are regular. ABDOMEN: Soft, nontender. EXTREMITITES: No edema. Objective - Vital Signs Vital signs: Vital Signs Temp 99.1 F 08/16/20 07:00 Pulse 77 08/16/20 07:00 Resp 18 08/16/20 08:00 BP 135/66 08/16/20 07:00 Pulse Ox 93 L 08/16/20 07:00 Intake & Output 08/15/20 08/16/20 08/16/20 18:59 06:59 18:59 Intake Total 540 Balance 540 Weight 89.811 kg Intake: Oral 540 - Labs CBC & Chem 7: 08/16/20 04:51 08/15/20 18:33 Labs: Abnormal Lab Results - Last 24 Hours (Table) 08/15/20 08/15/20 08/15/20 Range/Units 12:41 17:35 18:33 Immature Gran # (0.00-0.04) X 10*3/uL Eosinophils # (0.04-0.35) X 10*3/uL Chloride 111 H (98-107) mmol/L Carbon Dioxide 20 L (22-30) mmol/L BUN 22 H (9-20) mg/dL Glucose 213 H (74-99) mg/dL POC Glucose (mg/dL) 229 H 228 H (75-99) mg/dL Calcium 7.9 L (8.4-10.2) mg/dL 08/15/20 08/16/20 08/16/20 Range/Units 20:44 04:51 07:04 Immature Gran # 0.13 H (0.00-0.04) X 10*3/uL Eosinophils # 0.02 L (0.04-0.35) X 10*3/uL Chloride (98-107) mmol/L Carbon Dioxide (22-30) mmol/L BUN (9-20) mg/dL Glucose (74-99) mg/dL POC Glucose (mg/dL) 207 H 100 H (75-99) mg/dL Calcium (8.4-10.2) mg/dL Assessment and Plan Plan: Assessment: 1. Metabolic acidosis. Initially high anion gap due to DKA. Non-gap from normal saline as of yesterday evening. No diarrhea. 2. DKA. Status post insulin drip. Blood sugars controlled. 3. Benign hypertension. Controlled. 4. Covid-19 infection. Plan: Hep-Lock IV fluids. Tight blood sugar control. Maintain oral bicarb. Follow-up morning labs.
[2020-08-16 11:52] LABS: Glucose,Whole Blood 185 mg/dL (75-99)
--- NOTE | 2020-08-16 13:43 | P.PN ---
Subjective Progress Note Date: 08/16/20 Feels better, no chest pain no abdominal pain, nausea no vomiting no dizziness. No shortness of breath. Objective - Vital Signs Vital signs: Vital Signs Temp 99.1 F 08/16/20 07:00 Pulse 77 08/16/20 07:00 Resp 18 08/16/20 08:00 BP 135/66 08/16/20 07:00 Pulse Ox 93 L 08/16/20 11:00 Intake & Output 08/15/20 08/16/20 08/16/20 18:59 06:59 18:59 Intake Total 540 Balance 540 Weight 89.811 kg Intake: Oral 540 - Exam Constitutional: No acute distress, conversant, pleasant Eyes: Anicteric sclerae, moist conjunctiva, no lid-lag, PERRLA ENMT: NC/AT,Oropharynx clear, no erythema, exudates Neck:Supple, FROM, no masses, or JVD Lungs: Clear to auscultation, Clear to percussion, Normal respiratory effort, no accessory muscle use Cardiovascular: Heart regular in rate and rhythm, No murmurs, gallops, or rubs no peripheral edema Abdominal: Soft Nontender, nom distended, no guarding, no rebound or rigidity Skin: Normal temperature, tone, texture, turgor, No induration No subcutaneous nodules Extremities:No digital cyanosis No clubbing, Pedal pulses intact and symmetrical Radial pulses intact and symmetrical Normal gait and station, No calf tenderness Psychiatric: Alert and oriented to person, place and time, Appropriate affect In tact judgement Neuro: Muscles Strength 5/5 in all 4 extremities, Sensation to light touch grossly present throughout, Cranial nerves II-XII grossly intact. No focal sensory deficits - Labs CBC & Chem 7: 08/16/20 04:51 08/15/20 18:33 Labs: Abnormal Lab Results - Last 24 Hours (Table) 08/15/20 08/15/20 08/15/20 Range/Units 17:35 18:33 20:44 Immature Gran # (0.00-0.04) X 10*3/uL Eosinophils # (0.04-0.35) X 10*3/uL Chloride 111 H (98-107) mmol/L Carbon Dioxide 20 L (22-30) mmol/L BUN 22 H (9-20) mg/dL Glucose 213 H (74-99) mg/dL POC Glucose (mg/dL) 228 H 207 H (75-99) mg/dL Calcium 7.9 L (8.4-10.2) mg/dL 08/16/20 08/16/20 08/16/20 Range/Units 04:51 07:04 11:46 Immature Gran # 0.13 H (0.00-0.04) X 10*3/uL Eosinophils # 0.02 L (0.04-0.35) X 10*3/uL Chloride (98-107) mmol/L Carbon Dioxide (22-30) mmol/L BUN (9-20) mg/dL Glucose (74-99) mg/dL POC Glucose (mg/dL) 100 H 185 H (75-99) mg/dL Calcium (8.4-10.2) mg/dL Assessment and Plan Plan: Acute hypoxemic respiratory failure Covid pneumonitis -Oxygen when necessary -DuoNeb nebs when necessary -Dexamethasone 6 mg IV daily -Vitamin C/D, zinc, famotidine -Pulmonology consult, input appreciated Clinically improving, not on oxygen. Diabetic ketoacidosis Type 2 diabetes mellitus, uncontrolled -IVF On subcu insulin -replete K, Mg, Phos as appropriate, monitor On by mouth bicarbonate Typical chest pain History of CAD status post PCI Hypertension Hyperlipidemia -Cardiology consult, input appreciated -Continue home Lipitor, but increase to 40 mg -Continue aspirin/Plavix -Continue metoprolol -Continue lisinopril Negative cardiac enzymes 2-D echo EF 60-65% Patient is a full code DPOA is his DVT prophylaxis with heparin 3 times a day Disposition: Home likely tomorrow
[2020-08-16 14:02] LABS: African American GFR (CKD) 107.1 (60.0-200.0); Albumin 3.4 g/dL (3.80-4.90); Albumin/Globulin Ratio 1.62 (1.60-3.17); Anion Gap 8.8 mmol/L (4.00-12.00); BUN/Creat Ratio 27.5 Ratio (12.00-20.00); Carbon Dioxide 20.2 mmol/L (21.6-31.8); Globulin 2.1 g/dL (1.6-3.3); Magnesium 2.5 mg/dL (1.5-2.4); Non-African American GFR(CKD) 92.4 (60.0-200.0); Potassium 3.6 mmol/L (3.5-5.5); Total Bilirubin 0.4 mg/dL (0.3-1.2); Total Protein 5.5 g/dL (6.2-8.2)
[2020-08-16 14:41] VITALS: BP 134/55; PULSE 81; RESP 16; TEMP 99.4
--- NOTE | 2020-08-16 15:07 | P.PN ---
Subjective Progress Note Date: 08/16/20 Principal diagnosis: Acute DKA, acute COVID 19 pneumonitis 65-year-old male, with history of diabetes, presents to the emergency department with complaints of aches and pains, weakness, shortness of breath, fatigue, and fever. The patient also has nausea and vomiting. The patient tells Dr. Duncan, that his was diagnosed with coronavirus one week ago. His symptoms have b een present for about 10 or 11 days. Over that period of time be just gotten worse and worse during he tested positive today. He was in the emergency room, and 16. His nurse with [facility]. He was on 2 L nasal cannula, saline at 200 mL an hour, and an insulin drip at 9 units an hour. The nurse, had just on his first dose of REM. He really should not get REM, disease outside the window. I will allow this first dose, but discontinue subsequent doses. In addition to diabetes mellitus, he has a history of hypertension, myocardial infarction 2, CAD with stent placement, and a previous appendectomy. White count 13.7, hemoglobin 15.5, hematocrit 45.9, platelet count 355,000. D-dimer 0.83. Blood gases show a PaO2 of 88, pCO2 of 16, and a pH is 7.11. Bicarbonate concentration is 5. This is on 28% oxygen. Sodium 141, potassium 3.8, chlorides 112, CO2 less than 5, BUN 26, creatinine 1.18, calcium 8.1, ferritin 3075, LDH 828, and C-reactive protein 73.5, pro-calcitonin levels 0.26. Urine is positive for rare mucus small blood 4+ ketones 4+ blood, and 2+ urine. PCR for coronavirus was positive. Chest x-ray showed some minimal atelectasis at the left lung base, but the CT angiogram did show diffuse bilateral patchy groundglass opacities consistent with COVID 19 pneumonia, and there were no large central pulmonary emboli. On today's evaluation of 08/15/2020 the patient is being seen in follow-up. The patient is diabetic male was 65 years of age was diagnosed with COVID 19 inf ection. The patient came into the emergency department after having symptoms for approximately 11 days. The patient's presented to the emergency department with severe anion gap metabolic acidosis consistent with DKA. The patient was on 2 L of oxygen by nasal cannula. Blood sugars were quite elevated and the patient was started on insulin drip for blood sugar control. He was started on steroids. He was also started on Remdesivir. Nevertheless, the pulmonary services and up stopping the medication as the patient was outside the window. The patient home to have COPD, previous stenting, hypertension and the patient d-dimer was 0.8, his blood gases showed severe metabolic acidosis with a serum bicarbonate less than 5. His CAT scan of the chest showed diffuse patchy bilateral groundglass pulmonary infiltrates consistent with Covid 19 related pneumonia. Follow-up blood work showed gradual closure of anion gap metabolic acidosis. Blood sugars under better control for now. Note that his initial blood. Was severely acidotic. The patient is currently on Decadron axillary milligrams IV every 24 hours. He remains on insulin drip. The patient is also on aspirin, Plavix, and heparin 5000 units subcu for DVT prophylaxis. IV fluids currently on D5 half-n1/2ormal saline with 20 mEq of potassium running at 1 50 mL an hour.. The most recent blood work from this morning is showing further improvement in the patient's anion gap metabolic acidosis. The serum bicarb is up to 12 and the anion gap is down to 10 and the patient has normal renal function. Glucose currently is at 244. The patient is on normal saline at the rate of 130s he is an hour. The patient is on Decadron 6mg IV 24 hours. The patient is on a combination of Invokana, and Lantus insulin on outpatient basis. On 08/16/2020 patient seen in follow-up on medical surgical floor, he is resting very comfortably in bed, he is on room air, pulse ox 93%, no cough, no shortness of breath, his been up ambulating, no chest discomfort, today's labs have been reviewed, with mental, the 0.46, hemoglobin is 13.9, lymphocyte count is 1.46, patient has been transitioned to Levemir, and NovoLog scale, his anion gap has closed, and is down to 8.8 on today's labs, BUN is 22, creatinine 0.8, patient is tolerating oral intake, no nausea vomiting or diarrhea, doing well, he could probably consider for discharge home today, echocardiogram has been noted, preserved LV function with 60-65%, mild aortic valve sclerosis, no pulmonic regurgitation and no pericardial effusion. Objective - Vital Signs Vital signs: Vital Signs Temp 99.4 F 08/16/20 14:05 Pulse 81 08/16/20 14:05 Resp 16 08/16/20 14:05 BP 134/55 08/16/20 14:05 Pulse Ox 93 L 08/16/20 14:05 Intake & Output 08/15/20 08/16/20 08/16/20 18:59 06:59 18:59 Intake Total 540 Balance 540 Weight 89.811 kg Intake: Oral 540 Other: # Voids 3 # Bowel Movements 0 - Exam GENERAL EXAM: Alert, very pleasant, 65-year-old male, on room air with a possible to 93% comfortable in no apparent distress. HEAD: Normocephalic/atraumatic. EYES: Normal reaction of pupils, equal size. Conjunctiva pink, sclera white. NOSE: Clear with pink turbinates. THROAT: No erythema or exudates. NECK: No masses, no JVD, no thyroid enlargement, no adenopathy. CHEST: No chest wall deformity. Symmetrical expansion. LUNGS: Equal air entry with no crackles, wheeze, rhonchi or dullness. CVS: Regular rate and rhythm, normal S1 and S2, no gallops, no murmurs, no rubs ABDOMEN: Soft, nontender. No hepatosplenomegaly, normal bowel sounds, no guarding or rigidity. EXTREMITIES: No clubbing, no edema, no cyanosis, 2+ pulses and upper and lower extremities. MUSCULOSKELETAL: Muscle strength and tone normal. SPINE: No scoliosis or deformity SKIN: No rashes CENTRAL NERVOUS SYSTEM: Alert and oriented -3. No focal deficits, tone is normal in all 4 extremities. PSYCHIATRIC: Alert and oriented -3. Appropriate affect. Intact judgment and insight. - Labs CBC & Chem 7: 08/16/20 04:51 08/16/20 04:51 Labs: Abnormal Lab Results - Last 24 Hours (Table) 08/15/20 08/15/20 08/15/20 Range/Units 17:35 18:33 20:44 Immature Gran # (0.00-0.04) X 10*3/uL Eosinophils # (0.04-0.35) X 10*3/uL Chloride 111 H (98-107) mmol/L Carbon Dioxide 20 L (22-30) mmol/L BUN 22 H (9-20) mg/dL BUN/Creatinine Ratio (12.00-20.00) Ratio Glucose 213 H (74-99) mg/dL POC Glucose (mg/dL) 228 H 207 H (75-99) mg/dL Calcium 7.9 L (8.4-10.2) mg/dL Magnesium (1.5-2.4) mg/dL AST (14-35) U/L Total Protein (6.2-8.2) g/dL Albumin (3.80-4.90) g/dL 08/16/20 08/16/20 08/16/20 Range/Units 04:51 04:51 07:04 Immature Gran # 0.13 H (0.00-0.04) X 10*3/uL Eosinophils # 0.02 L (0.04-0.35) X 10*3/uL Chloride 112 H (98-107) mmol/L Carbon Dioxide 20.2 L (22-30) mmol/L BUN (9-20) mg/dL BUN/Creatinine Ratio 27.50 H (12.00-20.00) Ratio Glucose (74-99) mg/dL POC Glucose (mg/dL) 100 H (75-99) mg/dL Calcium 8.0 L (8.4-10.2) mg/dL Magnesium 2.5 H (1.5-2.4) mg/dL AST 41 H (14-35) U/L Total Protein 5.5 L (6.2-8.2) g/dL Albumin 3.40 L (3.80-4.90) g/dL 08/16/20 Range/Units 11:46 Immature Gran # (0.00-0.04) X 10*3/uL Eosinophils # (0.04-0.35) X 10*3/uL Chloride (98-107) mmol/L Carbon Dioxide (22-30) mmol/L BUN (9-20) mg/dL BUN/Creatinine Ratio (12.00-20.00) Ratio Glucose (74-99) mg/dL POC Glucose (mg/dL) 185 H (75-99) mg/dL Calcium (8.4-10.2) mg/dL Magnesium (1.5-2.4) mg/dL AST (14-35) U/L Total Protein (6.2-8.2) g/dL Albumin (3.80-4.90) g/dL Assessment and Plan Plan: 1 Acute mild/moderate hypoxemic respiratory failure secondary to COVID 19 pneumonitis/pneumonia. The patient is currently on 2 L of oxygen by nasal cannula with pulse ox of 93% 2 Acute diabetic ketoacidosis. The patient came in with severe metabolic acidosis, gap is gradually closing 3 Anion gap metabolic acidosis, secondary to DKA. Anion gap is closed 4 Dehydration secondary to diabetic ketoacidosis and osmotic diuresis. The patient is was resuscitated with IV fluids 5 History of hypertension. 6 History of myocardial infarction 2, the last in 2013. Previous history of heart catheterization with stent placement. 7 History of hyperlipidemia. Plan: Patient is stable from pulmonary perspective, no worsening of dyspnea hypoxemia, his anion gap has closed, he is tolerating oral intake, has been transitioned to subcutaneous injections of basal and NovoLog insulins, doing well, clear for discharge from pulmonary perspective course of oral Decadron, follow up with Dr. Yoo in the office in 2 weeks I performed a history & physical examination of the patient and discussed their management with my nurse practitioner, Quin Felder. I reviewed the nurse practitioner's note and agree with the documented findings and plan of care. Lung sounds are positive for diminished breath sounds. The findings and the impression was discussed with the patient. I attest to the documentation by the nurse practitioner. Time with Patient: Less than 30
--- NOTE | 2020-08-16 15:15 | P.DS ---
Providers Date of admission: 08/14/20 15:12 Attending physician: Miguel Liang Consults: 08/14/20 15:11 Consult Physician Urgent Consulting Provider: Antonio Cespedes Consult Reason/Comments: covid, CAD, chest pain relieved with nitro Do you want consulting provider notified?: Yes Consult Physician Urgent Consulting Provider: Martinez Vasquez Consult Reason/Comments: DKA, covid Do you want consulting provider notified?: Yes 08/14/20 15:12 Consult Physician Stat Consulting Provider: Duglas Sweet Consult Reason/Comments: dka Do you want consulting provider notified?: Yes Primary care physician: [facility] Course: HPI 65 year old man with HTN/HLD/CAD/DM presented with chills, weakness. Patient says that starting 1 day ago he started to have chills and then started to feel immensely weak. Patient reports a positive sick contact and his has Covid. Patient has not received the vaccination at this time. Patient started to feel short of breath, his took his pulse oximeter at home and read 84% on room air. EMS was called and patient received nebulizer in Route which improved his oxygenation is 94%. Upon arrival, patient did report some chest pain which felt similar nature to his prior MIs. Reportedly, patient has had 3 myocardial infarctions, starting in 2007 with most recent one in January 2020, for which she received a Xience drug-eluting stent. Patient has been compliant with his aspirin/Plavix and metoprolol. He has also been compliant with his insulin, however, he reports that his sugars have never been under control despite outpatient titration of insulin therapy. He reports chills, weakness, chest pain. He denies fevers, nausea, vomiting, cough, palpitations, syncope, presyncope, abdominal pain, diarrhea, constipation, dysuria, dyschezia, numbness of extremities. In the emergency room, patient was hemodynamically stable and afebrile. EKG demonstrated normal sinus tachycardia with incomplete right bundle ranjit block and left axis deviation with no ischemic changes. Chest x-ray demonstrated interstitial infiltrate concerning for atypical pneumonia, consistent with Covid. Pertinent lab findings included bicarb less than 5, anion gap greater than 25, elevated glucose to 300. Patient also had positive acetone level, however, electrolytes were within normal limits. In the emergency room, patient was bolused 2 L of fluid and started on insulin drip with appropriate IV fluids. He received a nitro patch which resolved his chest pain. Hospitalist service was consulted for admission; cardiology, nephrology, pulmonology consult services have been requested. Hospital course and treatment pt was admitted with chills and weakness He was found to have DKA and acute COVID 19 infection He also had chest pain and was evaluated by cardiology. Echo revealed EF 60- 65%. Cardiac enzymes were negative. Chest pain resolved He was treated with oxygen bronchodilators dexamethasone zinc and vitamin C as well as multivitamins. At the time of discharge he did not require oxygen therapy. DKA resolved prior to discharge. Bicarbonate 10 upon admission improved to 20. He was started on oral bicarbonate but has continued to improve. He was evaluated by nephrology. He was cleared for discharge by specialties. Patient will be discharged home on dexamethasone. He'll follow up with PCP. Patient Condition at Discharge: Stable Plan - Discharge Summary Discharge Rx Participant: No New Discharge Prescriptions: New Dexamethasone [Decadron] 6 mg PO DAILY 6 Days #6 tablet Continue Aspirin EC [Ecotrin Low Dose] 81 mg PO HS Multivitamin [Multivitamins Adult Gummies] 2 tab PO DAILY Clopidogrel [Plavix] 75 mg PO DAILY #30 tab Simvastatin [Zocor] 40 mg PO HS #30 tablet Metoprolol Tartrate [Lopressor] 12.5 mg PO BID Insulin Glargine,Hum.rec.anlog [Lantus Solostar] 32 unit SQ W/SUPPER lisinopriL 40 mg PO DAILY Insulin Glulisine [Apidra] See Protocol SQ ACHS Canagliflozin [Invokana] 100 mg PO DAILY Discharge Medication List Aspirin EC [Ecotrin Low Dose] 81 mg PO HS 01/19/20 [History] Multivitamin [Multivitamins Adult Gummies] 2 tab PO DAILY 01/19/20 [History] Clopidogrel [Plavix] 75 mg PO DAILY #30 tab 01/22/20 [Rx] Simvastatin [Zocor] 40 mg PO HS #30 tablet 01/22/20 [Rx] Canagliflozin [Invokana] 100 mg PO DAILY 08/14/20 [History] Insulin Glargine,Hum.rec.anlog [Lantus Solostar] 32 unit SQ W/SUPPER 08/14/20 [History] Insulin Glulisine [Apidra] See Protocol SQ ACHS 08/14/20 [History] Metoprolol Tartrate [Lopressor] 12.5 mg PO BID 08/14/20 [History] lisinopriL 40 mg PO DAILY 08/14/20 [History] Dexamethasone [Decadron] 6 mg PO DAILY 6 Days #6 tablet 08/16/20 [Rx] Follow up Appointment(s)/Referral(s): Ingrid Yoo MD [STAFF PHYSICIAN] - 2 Weeks Tomas Jackson [Primary Care Provider] - 1-2 days Discharge Disposition: HOME SELF-CARE
[2020-08-17] MEDS ORDERED: PANTOPRAZOLE 40 MG TABLET PO SCH (07:30)
== END 2020-08-16 15:45 | disposition home or self-care (01) | DRG 177 ==
LOC: EC 10:11 → 2SICU 15:12 → 4SSUR 08-15 08:52 → 6NMEDSUR 08-15 13:11
PROVIDERS: ADMIT Internal Medicine; ATTEND Internal Medicine
PROC: XW033E5 Introduction of Remdesivir Anti-infective into Peripheral Vein, Percutaneous Approach, New Technology Group 5 (ICD-10-PCS; principal; 2020-08-14)
DX: U07.1 COVID-19 (principal); E11.10 Type 2 diabetes mellitus with ketoacidosis without coma; J12.82 Pneumonia due to coronavirus disease 2019; J96.01 Acute respiratory failure with hypoxia; J44.0 Chronic obstructive pulmonary disease with (acute) lower respiratory infection; I25.10 Atherosclerotic heart disease of native coronary artery without angina pectoris; E78.5 Hyperlipidemia, unspecified; E11.40 Type 2 diabetes mellitus with diabetic neuropathy, unspecified; E86.0 Dehydration; I10 Essential (primary) hypertension; I25.2 Old myocardial infarction; Z79.02 Long term (current) use of antithrombotics/antiplatelets; Z79.82 Long term (current) use of aspirin; Z79.4 Long term (current) use of insulin; Z79.899 Other long term (current) drug therapy; Z88.8 Allergy status to other drugs, medicaments and biological substances; Z90.49 Acquired absence of other specified parts of digestive tract; Z95.5 Presence of coronary angioplasty implant and graft; Z98.890 Other specified postprocedural states; Z83.3 Family history of diabetes mellitus; Z82.49 Family history of ischemic heart disease and other diseases of the circulatory system; Z80.9 Family history of malignant neoplasm, unspecified; Z79.52 Long term (current) use of systemic steroids
CPT/HCPCS: 36415; 36600; 71045; 71275; 80048; 80053; 80061; 81001; 81003; 82009; 82310; 82436; 82570; 82728; 82805; 83036; 83605; 83615; 83735; 84100; 84133; 84145; 84156; 84300; 84484; 85025; 85379; 85610; 85730; 86140; 87635; 93005; 93306; 94640; 96360; 96361; 99285